=== PATIENT | female | born 1950 | race Caucasian/White ===

== ENCOUNTER 2020-12-07 10:22 | Outpatient (REF) | payer MEDICARE, SELFPAY ==
[2020-12-07 11:46] LABS: MANUAL DIFF FLAG NO
[2020-12-07 12:00] LABS: Basophils Absolute Auto 0.1 X10*3/uL (0.0-0.2); Basophils Percent Auto 1.4 % (0-2); Eosinophils Absolute Auto 0.2 X10*3/uL (0.0-0.4); Eosinophils Percent Auto 3.2 % (0-4); Hematocrit 44.3 % (37-47); Hemoglobin 14.1 g/dl (12.0-16.0); Imm Gran Abs Auto 0.02 X10*3/uL (0.00-0.03); Imm Gran Pct Auto 0.3 % (0.0-0.4); Lymphocytes Absolute Auto 1.9 X10*3/uL (1.2-4.9); Lymphocytes Percent Auto 32.1 % (20-40); Mean Corpuscular HGB Conc 31.8 g/dl (31.0-35.0); Mean Corpuscular Hemoglobin 29.9 pg (27.0-33.0); Mean Corpuscular Volume 93.9 fL (80-98); Monocytes Absolute Auto 0.4 X10*3/uL (0.1-1.2); Monocytes Percent Auto 6.6 % (2-11); Neutrophils Absolute Auto 3.3 X10*3/uL (2.0-8.3); Neutrophils Percent Auto 56.4 % (45-73); Platelet Count 333 X10*3/uL (160-400); Red Blood Count 4.72 X10*6/uL (4.20-5.50); Red Cell Distribution Width 13.3 % (11.0-16.0); White Blood Count 5.9 X10*3/uL (4.8-10.8)
[2020-12-07 12:50] LABS: Folate > 20.0 ng/mL (> or = 4.0); Vitamin B12 278 pg/mL (200-900)
[2020-12-07 13:53] LABS: Alanine Aminotransferase 15 U/L (0-31); Anion Gap 14 (12-20); Aspartate Amino Transferase 17 U/L (5-31); Blood Urea Nitrogen 14 mg/dL (9-16); Calcium 9.6 mg/dL (8.4-10.2); Carbon Dioxide 28 mmol/L (22-29); Chloride 103 mmol/L (96-108); Cholesterol 256 mg/dL; Estimated Glomerular Filt Rate > 60; Glucose Fasting 97 mg/dL (60-99); HDL Cholesterol 70 mg/dL; LDL Cholesterol Calculated 136 mg/dl; Potassium 4.3 mmol/L (3.3-5.1); Sodium 141 mmol/L (135-145); TSH reflex Free T4 2.24 uIU/mL (0.32-4.0); Triglycerides 250 mg/dL; Vitamin D 25-OH Total 37.7 ng/mL (>30)
== END 2020-12-07 10:23 | disposition home or self-care (01) ==
LOC: HO.HMGCLDS 10:22
PROVIDERS: PCP Internal Medicine; Visit Provider Internal Medicine
DX: Z00.01 Encounter for general adult medical examination with abnormal findings (principal); M85.852 Other specified disorders of bone density and structure, left thigh; E78.2 Mixed hyperlipidemia; I10 Essential (primary) hypertension; M19.91 Primary osteoarthritis, unspecified site; Z12.11 Encounter for screening for malignant neoplasm of colon; Z78.0 Asymptomatic menopausal state
CPT/HCPCS: 36415; 80048; 80061; 82306; 82607; 82746; 84443; 84450; 84460; 85025

== ENCOUNTER 2020-12-24 12:01 | Outpatient (REF) | payer MEDICARE, SELFPAY | END 2020-12-24 12:02 | disposition home or self-care (01) | LOC: HO.HMGCLDS 12:01 | PROVIDERS: PCP Internal Medicine; Visit Provider Internal Medicine | DX: Z20.822 Contact with and (suspected) exposure to COVID-19 (principal) | CPT/HCPCS: C9803; U0003; U0005 ==

== ENCOUNTER → 2021-01-02 08:05 | Outpatient (BNVA) | payer MEDICARE, SELFPAY | PROVIDERS: PCP Internal Medicine; Visit Provider Physician Assistant | DX: Z12.11 Encounter for screening for malignant neoplasm of colon (principal) | CPT/HCPCS: Q3014 ==

== ENCOUNTER 2021-02-19 08:48 | Day surgery (SDC) | payer MEDICARE, SELFPAY ==
[2021-02-12 13:17] VITALS: BMI 28.0
--- NOTE | 2021-02-14 12:59 | HO.ANESPROP2 ---
Documented by User: Catherine Mena 02/14/21 13:00 HPI - Anesthesia Eval Consult details Narrative: 70yo F for Colonoscopy PMFSH Active Problems Active Problems: All Active Problems (Updated 02/12/21 @ 13:47 by Blossom Sifuentes) Encounter for screening colonoscopy (Acute) Mild obstructive sleep apnea (Acute) Osteopenia of left femoral neck (Acute) Mixed dyslipidemia (Acute) Primary localized osteoarthrosis of multiple sites (Acute) Fibromyalgia (Acute) Melanoma in situ of right lower extremity (Acute) Past Medical History Medical History (Updated 02/19/21 @ 09:28 by Carolann Stuart) Arthritis Fibromyalgia Low back pain Melanoma in situ of right lower extremity Mild obstructive sleep apnea Mixed dyslipidemia Osteopenia of left femoral neck Polymyalgia rheumatica Primary localized osteoarthrosis of multiple sites Family History Family History Father Acute leukemia SLE (systemic lupus erythematosus) Mother Colon cancer Surgical History Surgical History H/O hysterectomy with unilateral oophorectomy H/O melanoma excision History of cataract surgery History of tonsillectomy Social History Social History Household Members Other:: alone Alcohol intake: current Alcohol intake frequency: 0-2 drinks per day Alcohol type: wine Use of substances other than those prescribed or required for medical reasons: No Are you DNR?: No Advance Directives: No Advance Directives Information Provided: No Advance Directives on File: No 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 Allergies Allergy/AdvReac Type Severity Reaction Status Date / Time amoxicillin [AMOXICILLIN] Allergy Severe HIVES Verified 02/12/21 13:13 Home Medications Medication Instructions Recorded Confirmed Last Taken Type caeaqir-uvspscjbi-zhbe 333 mg-133 2 tab PO DAILY tab 12/07/20 02/12/21 Unknown History mg-8.3 mg tablet multivitamin 1 tab PO DAILY 12/07/20 02/12/21 Unknown History vitamin A palmitate 15,000 unit 15,000 unit PO DAILY 12/07/20 02/12/21 Unknown History tablet cholecalciferol (vitamin D3) 25 mcg PO DAILY 02/12/21 02/12/21 Unknown History [Vitamin D3] vitamin B complex 1 tab PO DAILY 02/12/21 02/12/21 Unknown History Exam Exam Date and Time: February 14, 2021 1259 Height,Weight and Vital Signs: Height 5 ft 7 in Weight 81.193 kg Assessment and Plan Assessment Anesthesia Assessment: Chart Reviewed Documented by User: Carolann Stuart 02/19/21 09:33 [facility] Past Medical History Medical History (Updated 02/19/21 @ 09:28 by Carolann Stuart) Arthritis Fibromyalgia Low back pain Melanoma in situ of right lower extremity Mild obstructive sleep apnea Mixed dyslipidemia Osteopenia of left femoral neck Polymyalgia rheumatica Primary localized osteoarthrosis of multiple sites Family History Family History Father Acute leukemia SLE (systemic lupus erythematosus) Mother Colon cancer Family history of problems with anesthesia: No Surgical History Surgical History H/O hysterectomy with unilateral oophorectomy H/O melanoma excision History of cataract surgery History of tonsillectomy History of Problems with Anesthesia: No Social History Social History Household Members Other:: alone Alcohol intake: current Alcohol intake frequency: 0-2 drinks per day Alcohol type: wine Use of substances other than those prescribed or required for medical reasons: No Are you DNR?: No Advance Directives: No Advance Directives Information Provided: No Advance Directives on File: No 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 Allergies Allergy/AdvReac Type Severity Reaction Status Date / Time amoxicillin [AMOXICILLIN] Allergy Severe HIVES Verified 02/12/21 13:13 Home Medications Medication Instructions Recorded Confirmed Last Taken Type fzxmxol-ehkrttyux-ixan 333 mg-133 2 tab PO DAILY tab 12/07/20 02/12/21 Unknown History mg-8.3 mg tablet multivitamin 1 tab PO DAILY 12/07/20 02/12/21 Unknown History vitamin A palmitate 15,000 unit 15,000 unit PO DAILY 12/07/20 02/12/21 Unknown History tablet cholecalciferol (vitamin D3) 25 mcg PO DAILY 02/12/21 02/12/21 Unknown History [Vitamin D3] vitamin B complex 1 tab PO DAILY 02/12/21 02/12/21 Unknown History Exam Height,Weight and Vital Signs: Vital Signs Temp Pulse Resp BP Pulse Ox 02/19/21 08:59 98.4 F 71 16 139/75 96 Airway Mallampati Class: II TM Dist: >3cm Neck ROM: Full Loose/Missing/Broken Teeth: No (Caps intact) Heart: RRR Lungs: CTAB Assessment and Plan Assessment Anesthesia Assessment: Anesthesia Plan Discussed and Chart Reviewed Final Anesthetic Review NPO: Yes ASA Class: III Final Preanesthetic Review: No Changes in Pt Med Stat, Meds/Allgs Chart Reviewed, Consent Obtained/Reviewed and Anes Risks/Benef Reviewed Patient Risk: Intermediate Procedure Risk: Low Assessment/Block/Sedation in SS: Assess/Block/Sedation-SS Anesthetic Plan Anesthetic Plan: MAC: Disposition: Standard PACU
[2021-02-19 08:59] VITALS: BP 139/75; PULSE 71; RESP 16; TEMP 36.9; O2SAT 96
--- NOTE | 2021-02-19 09:02 | W.PM.OPN ---
Operative Note Operative Note Date of Service: 02/19/21 Narrative: Pre-op diagnosis: Colon cancer screening family history of colon cancer (mom in her 90's) Post-op diagnosis: other (Colon polyp, diverticulosis, hemorrhoids) Procedure: COLONOSCOPY TILL CECUM WITH SNARE POLYPECTOMY Consent: Indications for the procedure and potential complications of bleeding, perforation, reaction to medications and missed diagnosis were discussed with the patient and informed consent was obtained. Instrument: Olympus PCF H 190 L variable stiffness pediatric colonoscope Monitoring: Vital signs and clinical assessment, intermittent blood pressure monitoring, continuous EKG monitoring, Pulse oximetry and Carbon Dioxide monitoring were done throughout the procedure. Colon withdrawl time was 16 minutes. Procedure: The patient was placed in the left lateral decubitis position and pre-procedure medications were administered. After a digital rectal examination of the ano-rectum, the video colonoscope was inserted into the rectum and advanced through the colon to the cecum. The colonoscope was slowly withdrawn in a retrograde panoramic fashion and the colon mucosa was carefully examined including a retroflexed view of the rectum. Findings and interventions are described below. Procedure Difficulty: There was a sharp turn at 30-35 cm with narrowing (due to severe diverticulosis) which was navigated with some difficulty - no maneuvers were required Findings: Terminal Ileum: Not evaluated Cecum: Normal Ascending Colon: Normal Transverse Colon: Normal Descending Colon: Moderate diverticulosis Sigmoid Colon: Severe diverticulosis with luminal narrowing Rectum: A 7-8 mm sessile polyp removed with a cold snare Ano-rectum: Moderate internal hemorrhoids Colon preparation: Good after some irrigation Impression and Post Procedure Diagnosis: Colonoscopy Findings: One small polyp removed Moderate to severe diverticulosis seen in the left colon Moderate hemorrhoids on retroflexed exam. Plan: Await pathology results Patient has an appointment on 03/06/21 in the GI Clinic with JENARO Rodriguez. Repeat Colonoscopy interval based on path results - in 5 years if polyps are adenomatous and 10 years if polyps are hyperplastic. Above findings were reviewed with the patient and colon polyps and diverticulosis handouts were given in the discharge area Surgeon: Antonio King MD Anesthesia: MAC (Yajaira Cunha CRNA) Was an Crystal Machining Coordinator used for this Procedure?: Yes Crystal Machining Coordinator: Alberto Burrell Estimated blood loss (mL): 0 Pathology: other (A. Rectal polyp x 1) Condition: stable Disposition: PACU
--- NOTE | 2021-02-19 09:02 | MHC.SHP ---
Pre-Procedural Eval Section A The patient is an INPATIENT: No The History & Physical has been completed within 30 days and I have reviewed it.: No Section B Chief Complaint: Screening Details of Present Illness: Colon cancer, family history of colon cancer (mom in her 90's) Relevant Family History (Specify if Yes): Yes Relevant Social History: None Present Medications: see Short Stay Collaborative assessment Medical History: Significant History (Fibromyalgia Melanoma in situ of right lower extremity Mild obstructive sleep apnea Mixed dyslipidemia Osteopenia of left femoral neck Primary localized osteoarthrosis of multiple sites) History of Previous Operations: Relevant previous surgery/procedure and date(s) (H/O hysterectomy with unilateral oophorectomy H/O melanoma excision History of cataract surgery History of tonsillectomy) Allergies: Allergies Allergy/AdvReac Type Severity Reaction Status Date / Time amoxicillin [AMOXICILLIN] Allergy Severe HIVES Verified 02/12/21 13:13 Review of Systems Sugical H&P ROS: Negative: Constitution, Cardiovascular, Respiratory and Gastrointestinal Exam Surgical H&P Exam: Normal: Heart, Normal: Lungs, Normal: Extremities and Normal: Abdomen Plan Diagnosis/Plan: Unchanged I have reviewed the history and physical and performed a pertinent physical examination on my patient. No changes have occurred unless specified.
[2021-02-19] MEDS: Lactated Ringers 1,000 ML 100 ML IVCONT (09:21)
--- NOTE | 2021-02-19 09:41 | PC.NURSE ---
Patient arrived to [facility] and stated she is a DNR/DNI. Paperwork not found scanned into PCI or Expanse. Anesthesia and Dr. King aware. Order put in for DNR/DNI status. Patients HCP information obtained- Rosa Hall (friend), phone [phone].
[2021-02-19 10:08] VITALS: BP 129/70; PULSE 62; RESP 16; TEMP 36.1; O2SAT 99
[2021-02-19 10:22] VITALS: BP 147/77; PULSE 64; RESP 16; TEMP 36.1; O2SAT 96
== END 2021-02-19 10:44 | disposition home or self-care (01) ==
PROVIDERS: PCP Internal Medicine; Visit Provider Internal Medicine Gastroenterology
PROC: 0DJD8ZZ Inspection of Lower Intestinal Tract, Via Natural or Artificial Opening Endoscopic (ICD-10-PCS; CPT 45378; principal; 2021-02-19 10:10)
DX: Z12.11 Encounter for screening for malignant neoplasm of colon (principal); Z80.0 Family history of malignant neoplasm of digestive organs; K62.1 Rectal polyp; K57.30 Diverticulosis of large intestine without perforation or abscess without bleeding; K64.8 Other hemorrhoids; M85.88 Other specified disorders of bone density and structure, other site; M89.49 Other hypertrophic osteoarthropathy, multiple sites; G47.33 Obstructive sleep apnea (adult) (pediatric); M35.3 Polymyalgia rheumatica; Z85.820 Personal history of malignant melanoma of skin; Z79.899 Other long term (current) drug therapy; Z88.0 Allergy status to penicillin
CPT/HCPCS: 45385; 88305

== ENCOUNTER → 2021-03-06 13:06 | Outpatient (BNVA) | payer MEDICARE, SELFPAY | PROVIDERS: Visit Provider Physician Assistant | DX: Z13.89 Encounter for screening for other disorder (principal) | CPT/HCPCS: Q3014 ==

== ENCOUNTER 2021-05-10 10:58 | Outpatient (REF) | payer MEDICARE, SELFPAY ==
--- NOTE | ~2021-05-10 | MM_ITS ---
EXAMINATION: MM SCREENING DIGITAL BREAST TOMOSYNTHESIS, BILATERAL CLINICAL INFORMATION: Screening. Asymptomatic. The lifetime risk of breast cancer based on the Tyrer-Cuzick Model is 4%. COMPARISON: Mammography: 03/14/2020, 03/09/2019, 02/12/2018 TECHNIQUE: Digital breast tomosynthesis is performed in both the craniocaudal and mediolateral oblique views along with computer-aided detection (CAD). Synthesized 2D images are generated from the tomosynthesis. FINDINGS: There are scattered areas of fibroglandular density (ACR BI-RADS breast composition Category b). Parenchymal pattern is similar to prior studies. There is no interval mass or developing density or architectural abnormality. Oval fibroglandular asymmetry anterior 12:00 left breast is stable from prior studies. Again, there are scattered bilateral dermal lesions overlying the breasts. There is a biopsy clip marker again seen mid upper outer left breast. 3-4 benign coarse calcifications are just superior lateral to the clip marker. There are no significant changes. MM/MM tomosynthesis screening BI IMPRESSION: No significant changes from prior studies. ASSESSMENT: BI-RADS 2: Benign RECOMMENDATION: Routine annual mammography screening. This patient's information was entered into a reminder system with a target due date for their next mammogram.
== END 2021-05-10 10:59 | disposition home or self-care (01) ==
LOC: HO.MAMMO 10:58
PROVIDERS: Visit Provider Internal Medicine
DX: Z12.31 Encounter for screening mammogram for malignant neoplasm of breast (principal)
CPT/HCPCS: 77063; 77067

== ENCOUNTER 2021-08-29 08:23 | Outpatient (REF) | payer MEDICARE, SELFPAY ==
--- NOTE | ~2021-08-29 | US_ITS ---
EXAMINATION: US ABDOMEN COMPLETE CLINICAL INFORMATION: Abdominal distention (gaseous). COMPARISON: None TECHNIQUE: Real-time imaging of the abdominal viscera. FINDINGS: PANCREAS: Not well visualized due to bowel gas ABDOMINAL AORTA: The proximal, mid, and distal segments are normal in caliber. INFERIOR VENA CAVA: Visualized portions are normal. LIVER: Normal. The liver is normal in size. The liver contour is normal. Parenchymal echogenicity is normal. No focal hepatic lesion. There is no intrahepatic biliary duct dilatation seen. GALLBLADDER: The gallbladder is normal in size. There are gallstones. Gallbladder wall is normal. There is no pericholecystic fluid. COMMON BILE DUCT: Normal in caliber measuring 0.6 cm in diameter. RIGHT KIDNEY: Normal. No hydronephrosis. No renal calculi or focal parenchymal lesions. The kidney measures 10.4 cm in maximum dimension. LEFT KIDNEY: There are left renal peripelvic cysts, largest measuring 1.5 x 0.9 x 1.4 cm. No hydronephrosis or renal calculi. The kidney measures 11.2 cm in maximum dimension. SPLEEN: Normal. The spleen measures 7.8 cm in maximum dimension. FREE FLUID: None. US/US abdomen complete IMPRESSION: Gallstones. Left renal cyst. Limited visualization of the pancreas.
== END 2021-08-29 08:24 | disposition home or self-care (01) ==
LOC: HO.US 08:23
PROVIDERS: PCP Internal Medicine; Visit Provider Internal Medicine
DX: R10.11 Right upper quadrant pain (principal); R14.0 Abdominal distension (gaseous)
CPT/HCPCS: 76700

== ENCOUNTER → 2021-10-11 08:50 | Outpatient (BNVA) | payer MEDICARE, SELFPAY | PROVIDERS: PCP Internal Medicine; Referring Provider Internal Medicine; Visit Provider Surgery | DX: K80.50 Calculus of bile duct without cholangitis or cholecystitis without obstruction (principal); K80.20 Calculus of gallbladder without cholecystitis without obstruction | CPT/HCPCS: 99202 ==

== ENCOUNTER 2021-11-04 07:16 | Day surgery (SDC) | payer MEDICARE, SELFPAY ==
[2021-10-28 12:31] VITALS: BMI 28.0
--- NOTE | 2021-11-01 10:41 | HO.ANESPROP2 ---
Documented by User: Catherine Mena NP 11/01/21 10:42 HPI - Anesthesia Eval Consult details Narrative: 71yo F for ?Cholecystectomy Laparoscopic, Poss Open PMFSH Active Problems Active Problems: All Active Problems (Updated 10/28/21 @ 12:26 by Hermila Gomez RN) Encounter for screening colonoscopy (Acute) Diverticulosis of colon (Acute) Hyperplastic colon polyp (Acute) Biliary colic (Acute) Cholelithiasis (Acute) Mild obstructive sleep apnea (Acute) Osteopenia of left femoral neck (Acute) Mixed dyslipidemia (Acute) Primary localized osteoarthrosis of multiple sites (Acute) Fibromyalgia (Acute) Melanoma in situ of right lower extremity (Acute) Past Medical History Medical History Arthritis Fibromyalgia Low back pain Melanoma in situ of right lower extremity Mixed dyslipidemia Osteopenia of left femoral neck Polymyalgia rheumatica Primary localized osteoarthrosis of multiple sites Family History Family History Father Acute leukemia SLE (systemic lupus erythematosus) Lymphoma Mother Colon cancer Maternal Aunt Breast cancer Family history of problems with anesthesia: No Surgical History Surgical History H/O colonoscopy H/O hysterectomy with unilateral oophorectomy H/O melanoma excision History of cataract surgery History of tonsillectomy History of Problems with Anesthesia: No Social History Social History Household Members Other:: alone Are you a primary healthcare corporate account director to a significant other at home: No Do you presently have visiting nurse or other home services: No Alcohol intake: current Alcohol intake frequency: 0-2 drinks per day Alcohol type: wine Patient Tobacco Use Status: Never used Tobacco Second Hand Smoke Exposure: No Use of substances other than those prescribed or required for medical reasons: No Have you been hit, kicked, punched, or otherwise hurt by someone within the past year? 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 Allergy/AdvReac Type Severity Reaction Status Date / Time amoxicillin [AMOXICILLIN] Allergy Severe HIVES Verified 10/28/21 12:46 Home Medications Medication Instructions Recorded Confirmed Last Taken Type opxerho-tnfrifjlk-vxyu 333 mg-133 2 tab PO DAILY tab 12/07/20 10/28/21 Unknown History mg-8.3 mg tablet multivitamin 1 tab PO DAILY 12/07/20 10/28/21 Unknown History vitamin A palmitate 15,000 unit 15,000 unit PO DAILY 12/07/20 10/28/21 Unknown History tablet cholecalciferol (vitamin D3) 25 25 mcg PO DAILY 02/12/21 10/28/21 Unknown History mcg (1,000 unit) capsule (Vitamin D3) vitamin B complex 1 tab PO DAILY 02/12/21 10/28/21 Unknown History Exam Exam Date and Time: November 01, 2021 1041 Height,Weight and Vital Signs: Height 5 ft 7 in Weight 81.193 kg Assessment and Plan Assessment Anesthesia Assessment: Chart Reviewed Final Anesthetic Review Family History of Problems with Anesthesia: No History of Problems with Anesthesia: No Documented by User: Vonnie Mansfield MD 11/04/21 09:05 [facility] Past Medical History Medical History Arthritis Fibromyalgia Low back pain Melanoma in situ of right lower extremity Mixed dyslipidemia Osteopenia of left femoral neck Polymyalgia rheumatica Primary localized osteoarthrosis of multiple sites Family History Family History Father Acute leukemia SLE (systemic lupus erythematosus) Lymphoma Mother Colon cancer Maternal Aunt Breast cancer Surgical History Surgical History H/O colonoscopy H/O hysterectomy with unilateral oophorectomy H/O melanoma excision History of cataract surgery History of tonsillectomy Social History Social History Household Members Other:: alone Are you a primary healthcare corporate account director to a significant other at home: No Do you presently have visiting nurse or other home services: No Alcohol intake: current Alcohol intake frequency: 0-2 drinks per day Alcohol type: wine Patient Tobacco Use Status: Never used Tobacco Second Hand Smoke Exposure: No Use of substances other than those prescribed or required for medical reasons: No Have you been hit, kicked, punched, or otherwise hurt by someone within the past year? 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 Allergy/AdvReac Type Severity Reaction Status Date / Time amoxicillin [AMOXICILLIN] Allergy Severe HIVES Verified 10/28/21 12:46 Home Medications Medication Instructions Recorded Confirmed Last Taken Type qcjlzuv-esdzfqqzx-njqa 333 mg-133 2 tab PO DAILY tab 12/07/20 10/28/21 Unknown History mg-8.3 mg tablet multivitamin 1 tab PO DAILY 12/07/20 10/28/21 Unknown History vitamin A palmitate 15,000 unit 15,000 unit PO DAILY 12/07/20 10/28/21 Unknown History tablet cholecalciferol (vitamin D3) 25 25 mcg PO DAILY 02/12/21 10/28/21 Unknown History mcg (1,000 unit) capsule (Vitamin D3) vitamin B complex 1 tab PO DAILY 02/12/21 10/28/21 Unknown History Exam Airway Mallampati Class: III TM Dist: >3cm Loose/Missing/Broken Teeth: No Heart: RRR Lungs: CTA Assessment and Plan Assessment Anesthesia Assessment: Anesthesia Plan Discussed Final Anesthetic Review NPO: Yes ASA Class: II Final Preanesthetic Review: Meds/Allgs Chart Reviewed, Consent Obtained/Reviewed and Anes Risks/Benef Reviewed Patient Risk: Low Procedure Risk: Intermediate Anesthetic Plan Anesthetic Plan: GA Disposition: Standard PACU
[2021-11-04] VITALS (13 sets, daily range): BP systolic 146–178; BP diastolic 70–87; PULSE 60–68; RESP 16–22; TEMP 36.3–36.7; O2SAT 93–98
[2021-11-04] MEDS: Acetaminophen 325 MG TABLET 650 MG PO (08:43)
--- NOTE | 2021-11-04 08:50 | MHC.SHP ---
Pre-Procedural Eval Section A Date of Service: 11/04/21 The patient is an INPATIENT: No Changes since office visit: Yes Patient answered all questions; No Cold of Flu in the past 2 weeks, No New Medical Problems and No Changes in Medication The History & Physical has been completed within 30 days and I have reviewed it.: Yes Section B Chief Complaint: Cholelithiasis Allergies: Allergies Allergy/AdvReac Type Severity Reaction Status Date / Time amoxicillin [AMOXICILLIN] Allergy Severe HIVES Verified 10/28/21 12:46 Plan Diagnosis/Plan: Unchanged I have reviewed the history and physical and performed a pertinent physical examination on my patient. No changes have occurred unless specified.
[2021-11-04] MEDS: Lactated Ringers 1,000 ML 100 ML IVCONT (08:57)
--- NOTE | 2021-11-04 10:26 | P.OP_ITS ---
Operative Note Operative Note Date of Service: 11/04/21 Narrative: Preoperative diagnosis: Biliary colic Postoperative diagnosis: Same Procedure: Laparoscopic cholecystectomy Surgeon: Pawel Rivero MD Title Clerk Automobile: MIGUELINA Elliott Anesthesia: General endotracheal Indications for procedure: 71-year-old female patient presenting with complaints of abdominal pain in the right quadrant found to have multiple gallstones the gallbladder. No wall thickening or pericholecystic fluid was identified. She presents today for laparoscopic or possible open cholecystectomy. Operative findings: evidence of chronic cholecystitis with adhesions to the undersurface of the gallbladder. Multiple large gallstones within the gallbladder. Specimen: gallbladder Estimated blood loss: 5 mL Complications: none Procedure details: Patient was brought to the OR and placed in a supine position. After administering general anesthesia the patient's abdomen was prepped with ChloraPrep and draped in a sterile fashion. Local anesthesia consisting of 0.5% Sensorcaine without epinephrine was infiltrated in a periumbilical region. A 5 mm incision was made above the umbilicus in a transverse fashion. The Veress needle was then inserted while elevating abdominal cavity with towel clips. After positive drop test the abdomen was insufflated to a pressure of 15 mm of mercury. The Veress needle was then removed and a 5 mm trocar inserted. The camera was inserted in the abdomen explored. A 12 mm trocar was then placed in the epigastrium and two 5 mm trocars placed in the right upper quadrant. The patient was placed in reverse Trendelenburg positioning and rotated to the left. The gallbladder was grasped with the fundus and retracted cephalad. Multiple adhesions to the undersurface of the gallbladder were dissected free using electrocautery and the Dolphin dissector.. The infundibulum was then grasped and retracted away from the liver bed. The Dolphin dissector was then used to dissect the peritoneum off the infundibulum to reveal the junction with the cystic duct. Cystic artery was noted slightly medial and posterior to the cystic duct with a large overlying lymph node. After obtaining a critical view the cystic duct was doubly clipped and divided. The cystic artery was then doubly clipped and divided. The gallbladder was then dissected off the liver bed using electrocautery with an L hook. Hemostasis was assured all times using the electrocautery. When the gallbladder is completely dissected off the liver bed was placed in an Endo-Catch bag and brought out through the epigastric incision. The gallbladder was sent to pathology for f urther examination. The abdomen was then re-examined. The liver bed was irrigated and suctioned dry. No bleeding or bile leak could be identified. CO2 was then evacuated and all trocars removed. Fascia was closed at the epigastric incision using a [id number] 0 Polysorb suture. Skin was closed in all incisions using a subcuticular 4 0 Polysorb suture. Sterile dressings consisting of Steri-Strips, 2 x 2 gauze, and Tegaderm were then applied. The patient tolerated the procedure well. Sponge instrument and needle counts reported as correct. The patient was transferred to PACU in stable condition.
[2021-11-04] MEDS: fentaNYL citrate/PF 100 MCG/2 ML VIAL 50 MCG IVPUSH ×3 (10:53→11:10)
[2021-11-04] MEDS: oxyCODONE HCl Immed Release 5 MG TABLET PO (10:53)
== END 2021-11-04 12:49 | disposition home or self-care (01) ==
PROVIDERS: PCP Internal Medicine; Visit Provider Surgery
PROC: 0FT44ZZ Resection of Gallbladder, Percutaneous Endoscopic Approach (ICD-10-PCS; CPT 47562; principal; 2021-11-04 09:10)
DX: K80.10 Calculus of gallbladder with chronic cholecystitis without obstruction (principal); K82.8 Other specified diseases of gallbladder; E78.2 Mixed hyperlipidemia; M35.3 Polymyalgia rheumatica; M79.7 Fibromyalgia; M85.852 Other specified disorders of bone density and structure, left thigh; G47.33 Obstructive sleep apnea (adult) (pediatric); Z86.006 Personal history of melanoma in-situ; Z79.899 Other long term (current) drug therapy; Z88.0 Allergy status to penicillin
CPT/HCPCS: 47562; 88304; J1100; J1885; J2250; J2405; J3010

== ENCOUNTER 2021-11-12 10:44 | Outpatient (REF) | payer MEDICARE, SELFPAY ==
--- NOTE | ~2021-11-12 | XR_ITS ---
EXAMINATION: XR CHEST CLINICAL INFORMATION: Shortness of breath COMPARISON: None TECHNIQUE: 2 views of the chest were obtained. FINDINGS: The cardiac and mediastinal contours are normal. There is subsegmental atelectasis at both lung bases. The lungs are otherwise clear. There is no pleural effusion or pneumothorax. There are degenerative changes of the spine. XR/XR chest 2V IMPRESSION: Subsegmental atelectasis at both lung bases.
== END 2021-11-12 10:45 | disposition home or self-care (01) ==
LOC: HO.XRAY 10:44
PROVIDERS: PCP Internal Medicine; Visit Provider Surgery
DX: K80.50 Calculus of bile duct without cholangitis or cholecystitis without obstruction (principal); R06.02 Shortness of breath
CPT/HCPCS: 71046; 99212

== ENCOUNTER 2021-12-09 10:18 | Outpatient (REF) | payer MEDICARE, SELFPAY ==
[2021-12-09 12:11] LABS: Alanine Aminotransferase 20 U/L (0-31); Anion Gap 14 (12-20); Aspartate Amino Transferase 15 U/L (5-31); Blood Urea Nitrogen 13 mg/dL (9-16); Calcium 9.9 mg/dL (8.4-10.2); Carbon Dioxide 28 mmol/L (22-29); Chloride 102 mmol/L (96-108); Cholesterol 248 mg/dL; Estimated Glomerular Filt Rate > 60; Glucose Fasting 99 mg/dL (60-99); HDL Cholesterol 80 mg/dL; LDL Cholesterol Calculated 143 mg/dl; Potassium 4.7 mmol/L (3.3-5.1); Sodium 139 mmol/L (135-145); Triglycerides 128 mg/dL
[2021-12-09 13:16] LABS: Folate > 20.0 ng/mL (> or = 4.0); Vitamin B12 339 pg/mL (200-900)
== END 2021-12-09 10:19 | disposition home or self-care (01) ==
LOC: HO.HMGCLDS 10:18
PROVIDERS: Visit Provider Internal Medicine
DX: Z00.01 Encounter for general adult medical examination with abnormal findings (principal); E78.2 Mixed hyperlipidemia; M85.852 Other specified disorders of bone density and structure, left thigh; N95.9 Unspecified menopausal and perimenopausal disorder
CPT/HCPCS: 36415; 80048; 80061; 82306; 82607; 82746; 84450; 84460

== ENCOUNTER 2022-05-13 12:21 | Outpatient (REF) | payer MEDICARE, SELFPAY ==
--- NOTE | ~2022-05-13 | MM_ITS ---
EXAMINATION: MM SCREENING DIGITAL BREAST TOMOSYNTHESIS, BILATERAL CLINICAL INFORMATION: Screening. Asymptomatic. The lifetime risk of breast cancer based on the Tyrer-Cuzick Model is 2.9%. COMPARISON: Mammography: May 10, 2021 and studies dating back to November 10, 2013 TECHNIQUE: Digital breast tomosynthesis is performed in both the craniocaudal and mediolateral oblique views along with computer-aided detection (CAD). Synthesized 2D images are generated from the tomosynthesis. FINDINGS: There are scattered areas of fibroglandular density (ACR BI-RADS breast composition Category b). There are no significant masses, abnormal calcifications, or other abnormalities. MM/MM tomosynthesis screening BI IMPRESSION: No significant changes from prior exam. ASSESSMENT: BI-RADS 1: Negative RECOMMENDATION: Routine annual mammography screening. This patient's information was entered into a reminder system with a target due date for their next mammogram.
--- NOTE | ~2022-05-13 | MM_ITS ---
EXAMINATION: BONE DENSITOMETRY CLINICAL INDICATION: Osteopenia. COMPARISON: Previous BD dated 09/27/2019 and baseline BD dated 06/21/2010. TECHNIQUE: Using a [employer] DXA System (software version: 13.1) manufactured by [employer], dual-energy x-ray absorptiometry was performed of the lumbar spine and left hip. The images are of good technical quality. Summary results are attached. FINDINGS: AP SPINE L1-L4: Current: BMD 1.107 g/cm2, Z-score 0.6, T-score -0.6, normal, 4.5% decrease from previous, 4.7% decrease from baseline (<5% change is not significant). Prior: BMD 1.159 g/cm2. Baseline: BMD 1.162 g/cm2. LEFT FEMUR, NECK: Current: BMD 0.898 g/cm2, Z-score 0.5, T-score -1.0, normal. Prior: BMD 0.845 g/cm2. Baseline: BMD 0.971 g/cm2. LEFT FEMUR, TOTAL: Current: BMD 0.960 g/cm2, Z-score 0.9, T-score -0.4, normal, 4.3% increase from previous, 6.0% decrease from baseline (<5% change is not significant). Prior: BMD 0.920 g/cm2. Baseline: BMD 1.021 g/cm2. IDENTIFIED RISK FACTORS: Menopause, left oophorectomy, osteoporosis, hysterectomy, family history (parent hip fracture). HISTORY OF FRACTURE: None listed. MEDICATIONS: Calcium, vitamin D. MM/XR DEXA axial skeleton IMPRESSION: 1. DIAGNOSIS: Normal bone density based on the lowest T-score value of -1.0 in the femoral neck applying World Health Organization criteria. 2. 10-YEAR FRACTURE RISK PREDICTION, FRAX: Major osteoporotic fracture (clinical spine, forearm, hip or shoulder) 14.2%. Hip fracture 4.7%. 3. Treatment Recommendations: NOF guidelines recommend consideration for treatment in postmenopausal women and men age 50 and older presenting with the following: -A hip or vertebral (clinical or morphometric) fracture. -T-score less than or equal to -2.5 at the femoral neck or spine after appropriate evaluation to exclude secondary causes. -Low bone mass at the hip or spine and a 10-year fracture probability by FRAX of greater than or equal to 3% for hip fracture or greater than or equal to 20% for major osteoporotic fracture based on the [place] adapted WHO algorithm. 4. Other Recommendations: All treatment decisions require clinical judgment and consideration of individual patient factors, including patient preferences, comorbidities, previous drug use, risk factors not captured in the FRAX model (e.g. frailty, falls, vitamin D deficiency, increased bone turnover, interval significant decline in bone density) and possible under or overestimation of fracture risk by FRAX. FUTURE SCAN RECOMMENDATION: People with diagnosed cases of osteoporosis or at high risk for fracture should have regular bone mineral density tests. For patients eligible for Medicare, routine testing is allowed once every 2 years. The testing frequency can be increased to one year for patients who have rapidly progressing disease, those who are receiving or discontinuing medical therapy to restore bone mass, or have additional risk factors.
== END 2022-05-13 12:22 | disposition home or self-care (01) ==
LOC: HO.MAMMO 12:21
PROVIDERS: Visit Provider Internal Medicine
DX: Z12.31 Encounter for screening mammogram for malignant neoplasm of breast (principal); Z13.820 Encounter for screening for osteoporosis; M85.852 Other specified disorders of bone density and structure, left thigh; N95.9 Unspecified menopausal and perimenopausal disorder; Z78.0 Asymptomatic menopausal state
CPT/HCPCS: 77063; 77067; 77080

== ENCOUNTER 2022-09-05 09:38 | Outpatient (REF) | payer MEDICARE, SELFPAY ==
[2022-09-05 11:30] LABS: MANUAL DIFF FLAG NO
[2022-09-05 11:49] LABS: Basophils Absolute Auto 0.1 X10*3/uL (0.0-0.2); Eosinophils Absolute Auto 0.2 X10*3/uL (0.0-0.4); Eosinophils Percent Auto 2.9 % (0-4); Hematocrit 44.2 % (37.0-47.0); INTERNATIONAL NORM RATIO 0.9 (0.9-1.1); Imm Gran Abs Auto 0.02 X10*3/uL (0.00-0.03); Imm Gran Pct Auto 0.3 % (0.0-0.4); Lymphocytes Absolute Auto 1.6 X10*3/uL (1.2-4.9); Lymphocytes Percent Auto 21.3 % (20-40); Mean Corpuscular HGB Conc 31.7 g/dl (31.0-35.0); Mean Corpuscular Hemoglobin 29.9 pg (27.0-33.0); Mean Corpuscular Volume 94.4 fL (80.0-98.0); Mean Platelet Volume 11.7 fL (9.4-12.3); Monocytes Absolute Auto 0.7 X10*3/uL (0.1-1.2); Monocytes Percent Auto 8.8 % (2-11); Neutrophils Percent Auto 65.7 % (45-73); Platelet Count 382 X10*3/uL (160-400); Prothrombin Time 10.7 SEC (10.0-13.1); Red Blood Count 4.68 X10*6/uL (4.20-5.50); Red Cell Distribution Width 13.3 % (11.0-16.0); White Blood Count 7.6 X10*3/uL (4.8-10.8)
[2022-09-05 14:09] LABS: Alanine Aminotransferase 17 U/L (0-31); Albumin Level 4.4 g/dL (3.5-5.0); Alkaline Phosphatase 59 U/L (39-117); Anion Gap 16 (12-20); Aspartate Amino Transferase 17 U/L (5-31); Blood Urea Nitrogen 15 mg/dL (9-16); Calcium 9.9 mg/dL (8.4-10.2); Carbon Dioxide 24 mmol/L (22-29); Chloride 107 mmol/L (96-108); Estimated Glomerular Filt Rate > 60; Gamma Glutamyl Transpeptidase 24 U/L (7-33); Glucose Fasting 103 mg/dL (60-99); Lipase 17 U/L (8-78); Potassium 4.6 mmol/L (3.3-5.1); Sodium 142 mmol/L (135-145); Total Protein 6.9 g/dL (6.5-8.0)
[2022-09-05 14:15] LABS: Amylase 48 U/L (28-100)
== END 2022-09-05 09:39 | disposition home or self-care (01) ==
LOC: HO.HMGCLDS 09:38
PROVIDERS: PCP Internal Medicine; Visit Provider Internal Medicine
DX: R10.11 Right upper quadrant pain (principal); K91.5 Postcholecystectomy syndrome
CPT/HCPCS: 36415; 80053; 82150; 82977; 83690; 85025; 85610

== ENCOUNTER 2022-09-09 09:02 | Outpatient (REF) | payer MEDICARE, SELFPAY ==
--- NOTE | ~2022-09-09 | US_ITS ---
EXAMINATION: US ABDOMEN COMPLETE CLINICAL INFORMATION: Right upper quadrant pain. COMPARISON: Abdominal ultrasound 08/29/2021 TECHNIQUE: Real-time imaging of the abdominal viscera. Today's examination is mildly limited secondary to overlying bowel gas. FINDINGS: Visualized portions of pancreas are normal in appearance. PANCREAS: Normal. ABDOMINAL AORTA: The proximal, mid, and distal segments are normal in caliber. INFERIOR VENA CAVA: Visualized portions are normal. LIVER: The liver is normal in size. The liver contour is normal. There are echogenicity is mildly increased diffusely. No focal hepatic lesion. There is no intrahepatic biliary duct dilatation seen. GALLBLADDER: Surgically absent. COMMON BILE DUCT: 0.8 cm in diameter. RIGHT KIDNEY: Normal. No hydronephrosis. No renal calculi or focal parenchymal lesions. The kidney measures 9.3 cm in maximum dimension. LEFT KIDNEY: The kidney measures 10.3 cm in maximum dimension. Several parapelvic cysts are noted, the largest measuring approximately 1.8 cm. No renal calculi or hydronephrosis of the left kidney. SPLEEN: Normal. The spleen measures 9.4 cm in maximum dimension. FREE FLUID: None. US/US abdomen complete IMPRESSION: 1. Diffusely increased liver echogenicity. This is a nonspecific finding but most suggestive of hepatic steatosis. Correlation with liver enzymes recommended. 2. Left-sided parapelvic cysts.
== END 2022-09-09 09:03 | disposition home or self-care (01) ==
LOC: HO.HMGCX 09:02
PROVIDERS: PCP Internal Medicine; Visit Provider Internal Medicine
DX: R10.11 Right upper quadrant pain (principal); K91.5 Postcholecystectomy syndrome
CPT/HCPCS: 76700

== ENCOUNTER 2022-12-15 12:23 | Outpatient (REF) | payer OTHER, SELFPAY ==
[2022-12-15 14:18] LABS: Alanine Aminotransferase 20 U/L (0-31); Anion Gap 15 (12-20); Aspartate Amino Transferase 18 U/L (5-31); Blood Urea Nitrogen 15 mg/dL (9-16); Calcium 10.2 mg/dL (8.4-10.2); Carbon Dioxide 27 mmol/L (22-29); Chloride 105 mmol/L (96-108); Cholesterol 228 mg/dL; Estimated Glomerular Filt Rate > 60; Glucose Fasting 100 mg/dL (60-99); HDL Cholesterol 66 mg/dL; LDL Cholesterol Calculated 131 mg/dl; Potassium 4.6 mmol/L (3.3-5.1); Sodium 142 mmol/L (135-145); Triglycerides 157 mg/dL
[2022-12-15 14:48] LABS: Folate 17.9 ng/mL (> or = 4.0); Vitamin B12 347 pg/mL (200-900); Vitamin D 25-OH Total 42.1 ng/mL (>30)
== END 2022-12-15 12:24 | disposition home or self-care (01) ==
LOC: HO.HMGCLDS 12:23
PROVIDERS: PCP Internal Medicine; Visit Provider Internal Medicine
DX: Z00.01 Encounter for general adult medical examination with abnormal findings (principal); E78.2 Mixed hyperlipidemia; R73.01 Impaired fasting glucose; Z78.0 Asymptomatic menopausal state
CPT/HCPCS: 36415; 80048; 80061; 82306; 82607; 82746; 84450; 84460

== ENCOUNTER 2023-05-15 10:35 | Outpatient (REF) | payer OTHER, SELFPAY ==
--- NOTE | ~2023-05-15 | MM_ITS ---
EXAMINATION: MM SCREENING DIGITAL BREAST TOMOSYNTHESIS, BILATERAL CLINICAL INFORMATION: Screening. Asymptomatic. COMPARISON: Mammography: This study is compared with prior exams dating back to 2019. TECHNIQUE: Digital breast tomosynthesis is performed in both the craniocaudal and mediolateral oblique views along with computer-aided detection (CAD). Synthesized 2D images are generated from the tomosynthesis. FINDINGS: There are scattered areas of fibroglandular density (ACR BI-RADS breast composition Category b). There are no significant masses, abnormal calcifications, or other abnormalities. There is a biopsy tissue marker in the upper outer quadrant of the left breast. It lies in close proximity to benign calcifications. MM/MM tomosynthesis screening BI IMPRESSION: No mammographic evidence of malignancy. ASSESSMENT: BI-RADS BI-RADS 2 - Benign Findings RECOMMENDATION: Routine annual mammography screening. 1 year F/U This examination should not preclude the clinical evaluation of a suspicious palpable abnormality. This patient's information was entered into a reminder system with a target due date for their next mammogram.
== END 2023-05-15 10:36 | disposition home or self-care (01) ==
LOC: HO.MAMMO 10:35
PROVIDERS: PCP Internal Medicine; Visit Provider Internal Medicine
DX: Z12.31 Encounter for screening mammogram for malignant neoplasm of breast (principal)
CPT/HCPCS: 77063; 77067

== ENCOUNTER → 2023-05-15 10:45 | Outpatient (BNV) | payer OTHER, SELFPAY | PROVIDERS: PCP Internal Medicine; Visit Provider Radiology Diagnostic Radiology | DX: Z12.31 Encounter for screening mammogram for malignant neoplasm of breast (principal) | CPT/HCPCS: 77063; 77067 ==

== ENCOUNTER 2023-12-29 08:02 | Outpatient (AMB) | payer OTHER, SELFPAY ==
--- NOTE | 2023-12-29 08:05 | MHC.PC.OV ---
Vital Signs 12/29/23 08:11 Height 5 ft 7 in Weight 157 lb BMI 24.6 BP 124/68 Blood Pressure Location Rt brachial Position Sitting Pulse 70 Pulse Source Pulse Oximeter Pulse Oximetry (%) 96 Oxygen Delivery Method Room Air Intake Visit Reasons: PE Intake Note: Pt is here today for her PE: last mammogram 05/15/23, bone density scan 05/13/22, colonoscopy 02/19/21 Allergies amoxicillin [AMOXICILLIN] Allergy (Severe, Verified 09/05/24 14:45) HIVES Medication List - Last Reconciled 12/29/23 by Анна Bhatt MD [id number] mg 2 tabs PO DAILY cholecalciferol (vitamin D3) (Vitamin D3) 25 mcg PO DAILY multivitamin 1 tab PO DAILY multivitamin with minerals (Hair,Skin and Nails tablet) 1 tab PO DAILY omega-3 fatty acids 1,000 mg PO DAILY omeprazole 40 mg PO DAILY PRN Tobacco use date assessed: 12/29/23 Fall risk assessment: No Falls in past year Last assessed Fall Risk: 12/29/23 Dental Screening Dental Screen Date: 12/29/23 Did you have a dental visit in the last 12 months?: Yes Did you have a dental problem in the last 6 months where you did not have access to dental care?: Yes Was dental information given to patient?: Patient has dentist HPI PE HPI Details 74-year-old lady with history of melanoma, mixed dyslipidemia, osteoarthritis, here today for physical exam. She is up-to-date with her breast cancer screening, with last mammogram done 05/15/2023, and is scheduled already for her mammogram and bone density scan later in April this year. She is up-to-date with her colon cancer screening, last done 02/19/2021, done by Dr. King with hyperplastic polyp removed, repeat screening again due in 2030. She has history of melanoma, currently sees bakery helper yearly, followed by Dr. Mcmahon. She has been having intermittent episodes of epigastric pain, related at times to food intake, denies having any nausea, no vomiting, no bright red blood in stool, no dark stools, has been taking omeprazole 40 mg daily temporary relief [facility] Medical History (Updated 09/05/24 @ 14:51 by Анна Bhatt MD) History of cholelithiasis Cyst of left kidney History of melanoma Biliary colic Polymyalgia rheumatica Osteopenia of left femoral neck Mixed dyslipidemia Primary localized osteoarthrosis of multiple sites Fibromyalgia Melanoma in situ of right lower extremity Surgical History History of laparoscopic cholecystectomy H/O colonoscopy H/O melanoma excision History of cataract surgery History of tonsillectomy H/O hysterectomy with unilateral oophorectomy Family History Father Acute leukemia SLE (systemic lupus erythematosus) Lymphoma Mother Colon cancer Maternal Aunt Breast cancer Social History Household Members Other:: alone Housing: House Are you a primary complex care nurse to a significant other at home: No Do you presently have visiting nurse or other home services: No Alcohol intake: current Alcohol intake frequency: 0-2 drinks per day Alcohol type: wine Patient Tobacco Use Status: Never used Tobacco e-Cigarette/Vaping Use: Never Used Second Hand Smoke Exposure: No Current occupational status: retired Current occupation: [employer] Cognitive needs: No Hearing needs: No Vision needs: Yes Questionnaire PHQ-9 Over the last 2 weeks, how often have you been bothered by any of the following problems? 1. Little interest or pleasure in doing things: not at all 2. Feeling down, depressed, or hopeless: not at all 3. Trouble falling or staying asleep, or sleeping too much: not at all 4. Feeling tired or having little energy: nearly every day 5. Poor appetite or overeating: not at all 6. Feeling bad about yourself - or that you are a failure or have let yourself or your family down: not at all 7. Trouble concentrating on things, such as reading the newspaper or watching television: not at all 8. Moving or speaking so slowly that other people could have noticed. Or the opposite - being so fidgety or restless that you have been moving around a lot more than usual: not at all 9. Thoughts that you would be better off or of hurting yourself in some way: not at all Total score: 3 Depression Screening Interpretation: Negative Depression Screening Done: Yes 38602 - PHQ-9 Billing: Yes Source: Developed by Drs. Kavon Rascon, Rosa Cash, Karsten Kelley and colleagues, with an educational edie from [employer]. Thrive Questionnaire Date Thrive assessed: 12/29/23 I am a: Patient What is your living situation today?: I have a steady place to live Within the past 12 months, did the food you bought not last and you didn't have the money to get more?: Never true Within the past 12 months, did you worry whether your food would run out before you got money to buy more?: Never true Do you have trouble paying for medicines?: No Do you have trouble getting transportation to medical appointments?: No Do you have trouble paying your heating and electricity bill?: No Do you have trouble taking care of your child, family member or friend?: No Do you have trouble with day-to-day activities such as bathing, preparing meals, shopping, managing finances, etc.?: No Are you currently unemployed and looking for a job?: No Are you interested in more education?: No THRIVE Score: 0 AUDIT C Alcohol Use Questionnaire (AUDIT-C) 1. How often do you have a drink containing alcohol?: Never 3. How often do you have six or more drinks on one occasion?: Never Total Score: 0 CAMILA-7 AMB Questionnaire CAMILA-7 Date CAMILA - 7 assessed: 12/29/23 Feeling nervous, anxious, or on edge: 0 = Not at all Not being able to stop or control worryin = Not at all Worrying too much about different things: 0 = Not at all Trouble relaxin = Not at all Being so restless that it is hard to sit still: 0 = Not at all Becoming easily annoyed or irritable: 0 = Not at all Feeling afraid as if something awful might happen: 0 = Not at all Total CAMILA-7 score (0-4 normal; 5-9 mild; 10-14 moderate; 15-21 severe): 0 Source: Developed by Drs. Kavon Rascon, Karsten Felix and colleagues, with an educational edie from [employer]. CAMILA-7 Assessment Billing CAMILA-7 Assessment Tool: CAMILA-7 Assessment 90716 Review of Systems Const Denies chills, Denies fever(s), Denies poor appetite and Denies weakness Eyes Denies change in vision ENT Reports no additional complaints Card Denies chest pain, Denies rapid heart rate, Denies irregular heart rhythm, Denies lightheadedness and Denies dyspnea Resp Denies cough and Denies dyspnea GI Reports as per HPI, Denies hematochezia and Denies change in stool character Denies difficulty voiding, Denies dysuria and Denies urinary incontinence Musc Reports no additional complaints Skin/Breast Denies rash Neuro Denies weakness Psych Reports no additional complaints Endo Reports no additional complaints Neal/Lymph Reports no additional complaints Aller/Immun Reports no additional complaints Physical exam (Primary Care) Vital Signs: Last Vital Signs Pulse 70 12/29/23 08:11 BP 124/68 12/29/23 08:11 Pulse Ox 96 12/29/23 08:11 Oxygen Delivery Method Room Air 12/29/23 08:11 BMI result Body Mass Index 24.6 Tobacco/Smoking Status: Tobacco use Status Tobacco use date assessed 12/29/23 12/29/23 08:10 Patient Tobacco Use Status Never used Tobacco 12/29/23 08:10 e-Cigarette/Vaping Use Never Used 12/29/23 08:10 PHQ-9: PHQ-9 Score PHQ-9: Total score 3 12/29/23 08:31 Depression Screening Interpretation: Negative Thrive Assessment: Date of Thrive Assessment Date Thrive assessed 12/15/22 12/29/23 08:10 Const Other: Alert oriented x3, no acute cardiorespiratory distress noted, ambulatory with normal gait Orientation/consciousness: patient oriented x3 [facility] Mouth: Normal oral and palatal mucosa present, oropharynx normal and moist mucous membranes Eyes General: appearance normal, both eyes and all related structures Neck Other: Supple, no lymphadenopathy, thyroid gland nonpalpable Chest Breast/axilla palpation: normal palpation of the breasts Resp Effort & Inspection: normal respiratory effort and able to speak in complete sentences Auscultation: clear to auscultation bilaterally Cardio Other: S1-S2 present regular rate and rhythm Bruits: no abdominal aortic bruits GI Inspection: Yes normal to inspection Palpation (GI): No Abdominal aortic bruit present, Soft to palpation, nontender, no guarding and no masses Auscultation: normal bowel sounds General: Yes no CVA tenderness Back/Spine/Pelvis Back: no CVA tenderness Skin General skin exam: no rashes or lesions noted Neuro General: patient oriented x3, gait normal, moves all extremities, Normal light touch and pain sensation, no focal motor deficits and CN's II-XI intact bilaterally Extrem General: Yes full ROM, Yes no joint enlargement, Yes no clubbing, cyanosis or edema and Yes normal gait Psych Appearance: grossly normal and well kempt Mental Status: mental status grossly normal Speech and movement: Normal speech and movement present Affect: normal affect Attitude: cooperative Thought process: Normal thought process present Thought content: Normal thought content present Coding Level of Care Code Est Pt Prev Care >65y(79444) Diagnoses Annual visit for general adult medical examination with abnormal findings Z00.01 Mixed dyslipidemia E78.2 Primary localized osteoarthrosis of multiple sites M19.91 Recurrent epigastric abdominal pain R10.13 Additional Codes CAMILA-7 Assessment Billing - CAMILA-7 Assessment Tool: CAMILA-7 Assessment 16904 ([id number])
[2023-12-29 08:11] VITALS: BP 124/68; PULSE 70; O2SAT 96; BMI 24.6
== END 2023-12-29 08:48 | disposition home or self-care (01) ==
PROVIDERS: PCP Internal Medicine; Visit Provider Internal Medicine
DX: Z00.01 Encounter for general adult medical examination with abnormal findings (principal); E78.2 Mixed hyperlipidemia; M19.91 Primary osteoarthritis, unspecified site; R10.13 Epigastric pain
CPT/HCPCS: 99499

== ENCOUNTER 2023-12-31 10:56 | Outpatient (REF) | payer OTHER, SELFPAY ==
--- NOTE | ~2023-12-31 | US_ITS ---
EXAMINATION: US ABDOMEN COMPLETE CLINICAL INFORMATION: Cyst of kidney, acquired. Upper abdominal pain. COMPARISON: Ultrasound abdomen complete 09/09/2022 and 08/29/2021. TECHNIQUE: Real-time imaging of the abdominal viscera. FINDINGS: PANCREAS: The pancreas appears unremarkable, without masses or ductal dilatation, with the exception of the tail which is obscured by bowel gas. ABDOMINAL AORTA: The proximal, mid, and distal segments are normal in caliber. INFERIOR VENA CAVA: Visualized portions are normal. LIVER: The liver is normal in size. The liver contour is normal. There is diffuse increased liver parenchymal echogenicity, consistent with hepatic steatosis. No focal hepatic lesion. There is no intrahepatic biliary duct dilatation seen. GALLBLADDER: Surgically absent. COMMON BILE DUCT: Normal in caliber measuring 0.9 cm in diameter. RIGHT KIDNEY: No hydronephrosis. No renal calculi or focal parenchymal lesions. The kidney measures 9.6 cm in maximum dimension. LEFT KIDNEY: No hydronephrosis. Probable benign parapelvic cysts again seen which need no additional imaging or follow-up. No renal calculi or solid focal parenchymal lesions. The kidney measures 11.0 cm in maximum dimension. SPLEEN: Normal. The spleen measures 7.9 cm in maximum dimension. FREE FLUID: None. US/US abdomen complete IMPRESSION: Hepatic steatosis. Left-sided parapelvic renal cysts which need no additional imaging or follow-up.
[2023-12-31 13:44] LABS: Alanine Aminotransferase 27 U/L (0-31); Anion Gap 11 (12-20); Aspartate Amino Transferase 23 U/L (5-31); Blood Urea Nitrogen 13 mg/dL (9-16); Calcium 9.7 mg/dL (8.4-10.2); Carbon Dioxide 27 mmol/L (22-29); Chloride 107 mmol/L (96-108); Cholesterol 213 mg/dL (<200); Estimated Glomerular Filt Rate > 60; Glucose Fasting 103 mg/dL (60-99); HDL Cholesterol 64 mg/dL (>40); LDL Cholesterol Calculated 121 mg/dL (<100); Sodium 141 mmol/L (135-145); Triglycerides 141 mg/dL (<150)
[2023-12-31 14:04] LABS: Vitamin D 25-OH Total 83.9 ng/mL (>30)
[2023-12-31 14:13] LABS: Folate 13.4 ng/mL (> or = 4.0); Vitamin B12 661 pg/mL (200-900)
== END 2023-12-31 10:57 | disposition home or self-care (01) ==
LOC: HO.HMGCX 10:56
PROVIDERS: PCP Internal Medicine; Visit Provider Internal Medicine
DX: Z00.01 Encounter for general adult medical examination with abnormal findings (principal); K63.5 Polyp of colon; E78.2 Mixed hyperlipidemia; M19.91 Primary osteoarthritis, unspecified site; N28.1 Cyst of kidney, acquired; R10.10 Upper abdominal pain, unspecified
CPT/HCPCS: 36415; 76700; 80048; 80061; 82306; 82607; 82746; 84443; 84450; 84460; 85014; 85018

== ENCOUNTER 2024-02-08 08:13 | Outpatient (AMB) | payer OTHER, SELFPAY ==
--- NOTE | 2024-02-08 08:21 | A.OFFVIS_ITS ---
Vital Signs 02/08/24 08:23 Height 5 ft 7 in Weight 158 lb 4.67 oz BMI 24.8 BP 137/69 Blood Pressure Location Lt brachial Position Sitting Pulse 85 Intake Visit Reasons: Epigastric pain Intake Note: Patient is established patient, last seen in 2020 for Diverticulitis. Patient presents today for epigastric pain. Patient had ultrasound in December, PCP recommended she follow up with GI. Patient reports epigastric pain, it has been better since she stopped drinking apple cider vinegar with water. Patient reports pain today is about a 2-3 out of 10. Patient does not report burning sensation. Ultrasound results in December report: Hepatic steatosis. Left-sided parapelvic renal cysts which need no additional imaging or follow-up. Allergies amoxicillin [AMOXICILLIN] Allergy (Severe, Verified 02/08/24 08:26) HIVES Medication List - Last Reconciled 02/08/24 by Selene Rea PA-C [id number] mg 2 tabs PO DAILY cholecalciferol (vitamin D3) (Vitamin D3) 25 mcg PO DAILY multivitamin 1 tab PO DAILY multivitamin with minerals (Hair,Skin and Nails tablet) 1 tab PO DAILY omega-3 fatty acids 1,000 mg PO DAILY omeprazole 40 mg PO DAILY PRN HPI Comments Details: A 73 y/o female with epigastric pain - she wast taking apple cider vinegar for arthritis--in noted this increased her symptoms. However she has d/c-apple cider vinegar, sx- lessened-she does not have acid reflux Omeprazole prescribed by pcp- she does not take take it except she is she were to get acid reflux however she does not have heartburn or reflux. Revealed blood work liver enzymes are normal, H and H is normal She overall is feeling well No nausea, vomiting, hematemesis, hematochezia fever or chills [facility] Medical History Cyst of left kidney History of melanoma Cholelithiasis Biliary colic Polymyalgia rheumatica Low back pain Arthritis Osteopenia of left femoral neck Mixed dyslipidemia Primary localized osteoarthrosis of multiple sites Fibromyalgia Melanoma in situ of right lower extremity Surgical History History of laparoscopic cholecystectomy H/O colonoscopy H/O melanoma excision History of cataract surgery History of tonsillectomy H/O hysterectomy with unilateral oophorectomy Family History Father Acute leukemia SLE (systemic lupus erythematosus) Lymphoma Mother Colon cancer Maternal Aunt Breast cancer Social History Household Members Other:: alone Housing: House Are you a primary clinical manager home care to a significant other at home: No Do you presently have visiting nurse or other home services: No Alcohol intake: current Alcohol intake frequency: 0-2 drinks per day Alcohol type: wine Patient Tobacco Use Status: Never used Tobacco e-Cigarette/Vaping Use: Never Used Second Hand Smoke Exposure: No Current occupational 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[employer] Cognitive needs: No Hearing needs: No Vision needs: Yes Review of Systems Const All systems reviewed & are unremarkable except as noted in HPI and below Card Denies chest pain and Denies dyspnea Resp Denies dyspnea GI Reports abdominal pain (Vague, rare -), Denies change in bowel habits, Denies heartburn, Denies diarrhea, Denies nausea and Denies vomiting Physical Exam Vital Signs: Last Vital Signs Pulse 85 02/08/24 08:23 BP 137/69 02/08/24 08:23 BMI result Body Mass Index 24.8 Const General: cooperative, healthy appearing, comfortable, no acute distress and well groomed Orientation/consciousness: patient oriented x3 Limitations: no limitations Eyes Sclerae: sclerae normal Resp Effort & Inspection: normal respiratory effort and able to speak in complete sentences Auscultation: clear to auscultation bilaterally, no rales, no rhonchi and no wheezes Cardio Rate: regular rate Rhythm: regular rhythm Heart sounds: S1 normal heart sound present and S2 normal heart sound present GI Palpation (GI): Soft to palpation and nontender Auscultation: normal bowel sounds Skin General skin exam: no rashes or lesions noted Neuro General: patient oriented x3 Extrem General: Yes full ROM Psych Appearance: grossly normal and well kempt Mental Status: mental status grossly normal Speech and movement: Normal speech and movement present and Clear speech present Affect: normal affect Attitude: cooperative Thought process: Normal thought process present Thought content: Normal thought content present Insight: Good insight present (Psych) Judgement: Good judgement present (Psych) Results Reviewed Results Reviewed: 2020- Dr. King Impression and Post Procedure Diagnosis: Colonoscopy Findings: One small polyp removed Moderate to severe diverticulosis seen in the left colon Moderate hemorrhoids on retroflexed exam. Plan: Await pathology results Patient has an appointment on 03/06/21 in the GI Clinic with JENARO Rodriguez. Repeat Colonoscopy interval based on path results - in 5 years if polyps are adenomatous and 10 years if polyps are hyperplastic. Above findings were reviewed with the patient and colon polyps and diverticulosis handouts were given in the discharge area Name: Ana Sears Age/Sex: 70/F Attending: Antonio King MD : 1950 Submitted by: Antonio King MD Copies to: Анна Bhatt MD MR #: [id number] Status: [facility] Collected: 02/19/21 Location: [facility] Received: 02/19/21 Diagnosis Rectum, polypectomy: Hyperplastic mucosal polyp with inflammatory changes. US/US abdomen complete IMPRESSION: Hepatic steatosis. Left-sided parapelvic renal cysts which need no additional imaging or follow-up. 01/03/24 Normal H&H normal liver enzymes Assessment & Plan Assessment & Plan (1) Epigastric pain: Comment: Very pleasant 73-year-old woman-epigastric pain that has pretty much resolved since she had discontinued apple cider vinegar-she was taking for arthritis No acid reflux Normal liver enzymes Code(s): R10.13 - Epigastric pain Category: Medical Plan: Monitor symptoms report any worsening (2) Hyperplastic colon polyp: Comment: Repeat asymptomatic colonoscopy 10 year Code(s): K63.5 - Polyp of colon Category: Medical Plan: Up-to-date for colonoscopy Plan HP- stool antigen if positive will UGI series EGD if indicated Orders: Orders [place] upper GI series Today R10.13 - Epigastric pain H pylori Ag Stool Today A04.8 - Other specified bacterial intestinal infections Patient Instructions: Reflux precautions reviewed Continue to monitor symptoms any change will report Will get HP- stool antigen if positive will UGI series-reassurance EGD if indicated Encouraged to call questions or concerns Coding Level of Care Code Est Pt Level 3 (17538) Diagnoses Epigastric pain R10.13 Hyperplastic colon polyp K63.5 Time Spent (min) 30
[2024-02-08 08:23] VITALS: BP 137/69; PULSE 85; BMI 24.8
== END 2024-02-08 08:58 | disposition home or self-care (01) ==
PROVIDERS: PCP Internal Medicine; Visit Provider Physician Assistant
DX: R10.13 Epigastric pain (principal); K63.5 Polyp of colon
CPT/HCPCS: 99213

== ENCOUNTER → 2024-02-08 08:13 | Outpatient (BNVA) | payer OTHER, SELFPAY | PROVIDERS: PCP Internal Medicine; Visit Provider Physician Assistant ==

== ENCOUNTER 2024-02-17 08:49 | Outpatient (REF) | payer OTHER, SELFPAY | END 2024-02-17 08:50 | disposition home or self-care (01) | LOC: HO.LNP 08:49 | PROVIDERS: Visit Provider Physician Assistant | DX: A04.8 Other specified bacterial intestinal infections (principal) | CPT/HCPCS: 87338 ==

== ENCOUNTER 2024-04-11 07:49 | Outpatient (REF) | payer OTHER, SELFPAY ==
--- NOTE | ~2024-04-11 | FL_ITS ---
EXAMINATION: XR FLUOROSCOPY UPPER GI WITH AIR CLINICAL INFORMATION: Epigastric pain COMPARISON: None TECHNIQUE: Fluoroscopic air contrast upper GI examination was performed utilizing standard techniques with thin and thick barium and effervescent granules. Numerous spot images were obtained. FINDINGS: Dual and single contrast images of the esophagus demonstrate normal caliber and contour. There is a granular appearance to the mid and distal esophageal mucosa. No masses or ulcerations are seen. Mild cricopharyngeal achalasia is present. Esophageal peristalsis is moderately disorganized. A small type I hiatal hernia is present. Gastroesophageal reflux is seen in the distal esophagus. No cystectomy clips are present in the right upper quadrant. Dual contrast and single contrast images of the stomach demonstrated a normal contour. There are a few small foci of contrast pooling in the body the stomach that may represent small superficial aphthous ulcers. No masses are present. Contrast freely passed into the gastric antrum and duodenal bulb without delay. Single and air-contrast images of the duodenal bulb demonstrate no abnormality. The duodenal sweep has a normal appearance, course, and mucosal fold appearance. The imaged proximal jejunum has a normal fold pattern and caliber. FLUOROSCOPY TIME: 3 minutes 56 seconds Number of Spot Images: 12 Number of Cine: 15 DOSE AREA PRODUCT: 2441 uGy-m2 (microgray-meter squared) FL/FL upper GI series IMPRESSION: 1. Mild cricopharyngeal achalasia 2. Granular appearance of the mid and distal esophageal mucosa that likely represents esophagitis. 3. Moderately disorganized esophageal peristalsis . 4. Small type I hiatal hernia with mild to moderate gastroesophageal reflux. 5. There are a few small foci of contrast pooling in the body the stomach that may present small superficial aphthous ulcers. Recommend correlation with EGD. This procedure was performed by Augustin Lopez PA-C, and supervised by Dr. Deluna
== END 2024-04-11 07:50 | disposition home or self-care (01) ==
LOC: HO.XRAY 07:49
PROVIDERS: PCP Internal Medicine; Visit Provider Physician Assistant
DX: R10.13 Epigastric pain (principal)
CPT/HCPCS: 74240

== ENCOUNTER → 2024-04-11 07:53 | Outpatient (BNV) | payer OTHER, SELFPAY | PROVIDERS: PCP Internal Medicine; Visit Provider Physician Assistant Surgical | DX: R10.13 Epigastric pain (principal) | CPT/HCPCS: 74246 ==

== ENCOUNTER 2024-05-18 11:06 | Outpatient (REF) | payer OTHER, SELFPAY ==
--- NOTE | ~2024-05-18 | MM_ITS ---
EXAMINATION: BONE DENSITOMETRY CLINICAL INDICATION: Screening for osteoporosis. COMPARISON: Previous BD dated 05/13/2022 and baseline BD dated 06/21/2010. TECHNIQUE: Using a [employer] DXA System (software version: 13.1) manufactured by [employer], dual-energy x-ray absorptiometry was performed of the lumbar spine and left hip. The images are of good technical quality. Summary results are attached. FINDINGS: LEFT FEMUR, NECK: Current: BMD 0.819 g/cm2, Z-score 0.2, T-score -1.6, osteopenia. Prior: BMD 0.898 g/cm2. Baseline: BMD 0.971 g/cm2. LEFT FEMUR, TOTAL: Current: BMD 0.876 g/cm2, Z-score 0.6, T-score -1.0, normal, 8.8% decrease from previous, 14.2% decrease from baseline (<5% change is not significant). Prior: BMD 0.960 g/cm2. Baseline: BMD 1.021 g/cm2. AP SPINE L1-L4: Current: BMD 1.119 g/cm2, Z-score 1.1, T-score -0.5, normal, 1.1% increase from previous, 3.7% decrease from baseline (<5% change is not significant). Prior: BMD 1.107 g/cm2. Baseline: BMD 1.162 g/cm2. IDENTIFIED RISK FACTORS: Early menopause, hysterectomy, left nephrectomy, osteoporosis, secondary osteoporosis. HISTORY OF FRACTURE: None listed. MEDICATIONS: Calcium or multivitamin. Vitamin D. MM/XR DEXA axial skeleton IMPRESSION: 1. DIAGNOSIS: Osteopenia based on the lowest T-score value of -1.6 in the femoral neck applying World Health Organization criteria. 2. 10-YEAR FRACTURE RISK PREDICTION, FRAX: Major osteoporotic fracture (clinical spine, forearm, hip or shoulder) 12.1%. Hip fracture 2.6%. 3. Treatment Recommendations: NOF guidelines recommend consideration for treatment in postmenopausal women and men age 50 and older presenting with the following: -A hip or vertebral (clinical or morphometric) fracture. -T-score less than or equal to -2.5 at the femoral neck or spine after appropriate evaluation to exclude secondary causes. -Low bone mass at the hip or spine and a 10-year fracture probability by FRAX of greater than or equal to 3% for hip fracture or greater than or equal to 20% for major osteoporotic fracture based on the [place] adapted WHO algorithm. 4. Other Recommendations: All treatment decisions require clinical judgment and consideration of individual patient factors, including patient preferences, comorbidities, previous drug use, risk factors not captured in the FRAX model (e.g. frailty, falls, vitamin D deficiency, increased bone turnover, interval significant decline in bone density) and possible under or overestimation of fracture risk by FRAX. Additional medical evaluation for secondary cause of low bone mineral density may be appropriate. FUTURE SCAN RECOMMENDATION: People with diagnosed cases of osteoporosis or at high risk for fracture should have regular bone mineral density tests. For patients eligible for Medicare, routine testing is allowed once every 2 years. The testing frequency can be increased to one year for patients who have rapidly progressing disease, those who are receiving or discontinuing medical therapy to restore bone mass, or have additional risk factors. Electronically signed by: Fxo Silverio MD 05/24/2024 11:05 AM EDT
--- NOTE | ~2024-05-18 | MM_ITS ---
EXAMINATION: MM SCREENING DIGITAL BREAST TOMOSYNTHESIS, BILATERAL CLINICAL INFORMATION: Screening. Asymptomatic. COMPARISON: Mammography: Comparison is made with available priors TECHNIQUE: Digital breast tomosynthesis is performed in both the craniocaudal and mediolateral oblique views along with computer-aided detection (CAD). Synthesized 2D images are generated from the tomosynthesis. FINDINGS: There are scattered areas of fibroglandular density (ACR BI-RADS breast composition Category b). Left marker clip. There are no significant masses, abnormal calcifications, or other abnormalities. MM/MM tomosynthesis screening BI IMPRESSION: No mammographic evidence of malignancy. ASSESSMENT: BI-RADS BI-RADS 2 - Benign Findings RECOMMENDATION: Routine annual mammography screening. 1 year F/U This examination should not preclude the clinical evaluation of a suspicious palpable abnormality. This patient's information was entered into a reminder system with a target due date for their next mammogram. Electronically signed by: Lisa Ann DO 06/10/2024 04:45 PM EDT
== END 2024-05-18 11:07 | disposition home or self-care (01) ==
LOC: HO.MAMMO 11:06
PROVIDERS: PCP Internal Medicine; Visit Provider Internal Medicine
DX: Z12.31 Encounter for screening mammogram for malignant neoplasm of breast (principal); Z13.820 Encounter for screening for osteoporosis; Z78.0 Asymptomatic menopausal state
CPT/HCPCS: 77063; 77067; 77080

== ENCOUNTER → 2024-05-18 11:15 | Outpatient (BNV) | payer OTHER, SELFPAY | PROVIDERS: PCP Internal Medicine; Visit Provider Internal Medicine | DX: Z12.31 Encounter for screening mammogram for malignant neoplasm of breast (principal) | CPT/HCPCS: 77063; 77067 ==

== ENCOUNTER 2024-12-27 08:11 | Outpatient (REF) | payer OTHER, SELFPAY ==
--- OUTSIDE RECORDS SUMMARY | 2024-12-27 08:25 | XMS_ITS | Encounter Summary ---
Author Organization [employer] Address [address] [place] [address] [address] [place] [address] Care Team Providers Care Field Observer Name Role Phone Unavailable Primary Care Provider Unavailabl e Encounter Details Date Type Department Care Team (Latest Contact Info) Description 03/04/2019 Abstract [facility] CONVERSIONS Dental, Provider, DDS Social History Tobacco Use Types Packs/Day Years Used Date Smoking Tobacco: Never Assessed Comments Unknown Sex and Gender Information Value Date Recorded Sex Assigned at Female 07/21/2022 10:38 AM EDT Legal Sex Female 10:38 AM EDT Gender Identity Female 07/21/2022 10:38 AM EDT Sexual Orientation Straight 12/29/2022 8: 13 AM EDT documented as of this encounter Plan of Treatment Not on file documented as of this encounter Visit Diagnoses Not on filedocumented in this encounter
--- OUTSIDE RECORDS SUMMARY | 2024-12-27 08:25 | XMS_ITS | Clinical Summary ---
Author Organization [employer] Address [address] [place] [address] [address] [place] [address] Care Team Providers Care Crystal Evaluator Name Role Phone Unavailable Primary Care Provider Unavailabl e Allergies Active Allergy Reactions Criticality Noted Date Comments Amoxicillin 10/01/2022 Medications FLUoxetine (PROzac) 40 MG capsule Take 1 capsule by mouth at bed time. Active calcium carbonate (Os-Jose F) 1250 (500 Ca) MG tablet Active cholecalciferol (Vitamin D-3) 25 MCG (1000 UT) tablet Take by mouth. Active multivitamin (Theragran) tablet Active omega-3 (Fish Oil) 1000 MG capsule Active omeprazole (PriLOSEC) [address] capsule Take 40 mg by mouth in the morning. 09/30/2022 Active Active Problems Problem Noted Date Diagnosed Date Arthritis 12/29/2013 Urticaria 12/29/2013 Skin rash 12/29/2013 Abnormal breathing 12/29/2013 Encounters Date Type Department Care Team Description 12/02/2024 2:00 PM EDT Office Visit [facility] [address] [place] [address] Mary Figueroa DMD 11/29/2024 Travel from Last 3 Months Social History Tobacco Use Types Packs/Day Years Used Date Smoking Tobacco: Never Passive Smoke Exposure: Never Smokeless Tobacco: Never Tobacco Cessation:Counseling Given: Not Answered Alcohol Use Standard Drinks/Week Comments Yes 1 (1 standard drink = 0.6 oz pur e alcohol) Comments Unknown Sex and Gender Information Value Date Recorded Sex Assigned at Female 07/21/2022 10:38 AM EDT Legal Sex Female 10:38 AM EDT Gender Identity Female 07/21/2022 10:38 AM EDT Sexual Orientation Straight 12/29/2022 8: 13 AM EDT Last Filed Vital Signs Vital Sign Reading Time Taken Comments Blood Pressure 130/76 08/02/2024 3:16 PM EST Pulse 65 07/14/2024 10:54 AM EDT Temperature - - Respiratory Rate - - Oxygen Saturation - - Inhaled Oxygen Concentration - - Weight - - Height - - Body Mass Index - - Plan of Treatment Health Maintenance Due Date Last Done Comments Depression Screening 1950 SDOH Screening 1950 Alcohol/Substance Use Screening 1960 Hepatitis C Screening 1966 Zoster Vaccines (2 of 3) 06/04/2014 04/09/2014 RSV Patients and Patients Aged 60 years or older (1 - 1-dose 75+ series) 2023 COVID-19 Vaccine ( season) 2024 09/04/2022, 09/02/2021, 02/11/2021, Additional history exists Influenza Vaccine (#1) 2024 , 08/03/2019, 07/16/2019, Additional history exists Dental Oral Exam 01/13/2025 07/14/2024, 08/2024, 07/02/2023, Additional history exists Dental Prophylaxis 01/13/2025 07/14/2024, 0 01/01/2024, 07/02/2023, Additional history exists Tobacco Screening 12/02/2025 12/02/2024 Dental X-Ray: Bitewings 12/03/2025 12/03/19, 01/01/2024, 10/23/2022 Dental X-Ray: Full Mouth 01/01/2027 01/01/2024 DTaP/Tdap/Td Vaccines (2 - Td or Tdap) 04/09/2027 04/09/2017 Pneumococcal Vaccine: 50+ Years Completed 12/15/2022, 08/03/2018 HIB Vaccines Aged Out No longer eligi ble based on patient's age to complete this topic HPV Vaccines Aged Out No longer eligi ble based on patient's age to complete this topic Hepatitis A Vaccines Aged Out No long er eligible based on patient's age to complete this topic Hepatitis B Vaccines Aged Out No long er eligible based on patient's age to complete this topic IPV Vaccines Aged Out No longer eligi ble based on patient's age to complete this topic Meningococcal Vaccine Aged Out No soha dora eligible based on patient's age to complete this topic RSV under 20 months Aged Out No longe r eligible based on patient's age to complete this topic Rotavirus Vaccines Aged Out No longer eligible based on patient's age to complete this topic Procedures Procedure Name Priority Date/Time Associated Diagnosis Comments 3 INTRAORAL - PERIAPICAL FIRST RADIOGRAPHIC IMAGE Routine 12/02/2024 2:00 PM EDT BITEWING - SINGLE RADIOGRAPHIC IMAGE Routine 12/02/2024 2:00 PM EDT LIMITED ORAL EVALUATION - PROBLEM FOCUSED Routine 12/02/2024 2:00 PM EDT PROPHYLAXIS - ADULT Routine 07/14/2024 1 1:00 AM EDT PERIODIC ORAL EVALUATION - ESTABLISHED PATIENT Routine 07/14/2024 11:00 AM EDT INTRAORAL - COMPLETE SERIES OF RADIOGRAPHIC IMAGES Routine 01/01/2024 1:00 PM EDT from Last 3 Months or Most Recently Relevant to Health Maintenance Insurance DENTAL - [facility]
--- OUTSIDE RECORDS SUMMARY | 2024-12-27 08:25 | XMS_ITS | Encounter Summary ---
Author Organization [employer] Address [address] [place] [address] [address] [place] [address] Care Team Providers Care Display Carver Name Role Phone Unavailable Primary Care Provider Unavailabl e Encounter Details Date Type Department Care Team (Latest Contact Info) Description 01/02/2021 Abstract [facility] CONVERSIONS Dental, Provider, DDS Social History Tobacco [...]
--- OUTSIDE RECORDS SUMMARY | 2024-12-27 08:25 | XMS_ITS | Encounter Summary ---
Author Organization [employer] Address [address] [place] [address] [address] [place] [address] Care Team Providers Care Box Storage Worker Name Role Phone Unavailable Primary Care Provider Unavailabl e Encounter Details Date Type Department Care Team (Latest Contact Info) Description 01/23/2022 Abstract [facility] CONVERSIONS Dental, Provider, DDS Social History Tobacco [...]
[2024-12-27 10:11] LABS: Hematocrit 45.6 % (37.0-47.0); Hemoglobin 14.7 g/dl (12.0-16.0)
[2024-12-27 13:02] LABS: Alanine Aminotransferase 41 U/L (0-31); Anion Gap 10 (12-20); Aspartate Amino Transferase 38 U/L (5-31); Blood Urea Nitrogen 16 mg/dL (9-16); Calcium 9.9 mg/dL (8.4-10.2); Carbon Dioxide 28 mmol/L (22-29); Chloride 107 mmol/L (96-108); Cholesterol 253 mg/dL (<200); Estimated Glomerular Filt Rate > 60; Glucose Fasting 100 mg/dL (60-99); HDL Cholesterol 70 mg/dL (>40); LDL Cholesterol Calculated 150 mg/dL (<100); Potassium 4.3 mmol/L (3.3-5.1); Sodium 141 mmol/L (135-145); Triglycerides 166 mg/dL (<150)
[2024-12-27 13:18] LABS: Vitamin D 25-OH Total 66.6 ng/mL (>30)
== END 2024-12-27 08:12 | disposition home or self-care (01) ==
LOC: HO.HMGCLDS 08:11
PROVIDERS: PCP Internal Medicine; Visit Provider Internal Medicine
DX: N28.1 Cyst of kidney, acquired (principal); E78.2 Mixed hyperlipidemia; Z13.220 Encounter for screening for lipoid disorders; Z13.1 Encounter for screening for diabetes mellitus; Z78.0 Asymptomatic menopausal state
CPT/HCPCS: 36415; 80048; 80061; 82306; 84450; 84460; 85014; 85018

== ENCOUNTER 2025-01-03 08:29 | Outpatient (AMB) | payer OTHER, SELFPAY ==
--- NOTE | 2025-01-03 08:41 | MHC.PC.OV ---
Vital Signs 01/03/25 08:46 Height 5 ft 7 in Weight 166 lb 6 oz BMI 26.1 BP 132/82 Blood Pressure Location Lt brachial Position Sitting Respiration 16 Pulse 82 Pulse Source Pulse Oximeter Temp 98.0 F Temp Source Oral Pulse Oximetry (%) 96 Oxygen Delivery Method Room Air Intake Visit Reasons: PE Intake Note: Pt is here today for her PE: last mammogram 05/18/24, bone density scan 05/18/24, colonoscopy 02/19/21 Allergies amoxicillin [AMOXICILLIN] Allergy (Severe, Verified 01/03/25 09:00) HIVES Medication List - Last Reconciled 01/03/25 by Анна Bhatt MD aspirin (Adult Low Dose Aspirin) 81 mg PO DAILY kdugcev-tlhbvqxaq-cvuf 333-133-8.3 mg 2 tabs PO DAILY cholecalciferol (vitamin D3) (Vitamin D3) 25 mcg PO DAILY magnesium 400mg po qd multivitamin 1 tab PO DAILY multivitamin with minerals (Hair,Skin and Nails tablet) 1 tab PO DAILY omega-3 fatty acids 1,000 mg PO DAILY omeprazole 40 mg PO DAILY PRN Tobacco use date assessed: 01/03/25 Fall risk assessment: No Falls in past year Last assessed Fall Risk: 01/03/25 Dental Screening Dental Screen Date: 01/03/25 Did you have a dental visit in the last 12 months?: Yes Did you have a dental problem in the last 6 months where you did not have access to dental care?: No Was dental information given to patient?: Patient has dentist HPI PE HPI Details 74-year-old lady with history of osteopenia, impaired fasting glucose, achalasia of esophagus, and mixed dyslipidemia currently diet controlled, here today for a physical exam. She is up-to-date with her breast cancer screening and bone density screening last done April 2024. She is also up-to-date with her screening colonoscopy done in 2020 with removal only of hyperplastic polyp, due for a repeat colonoscopy in 2030. She has been feeling well, but gets occasional sharp pains on anterior chest, usually after eating. Denies any relation to activity, no accompanying shortness of breath or lightheadedness [facility] Medical History (Updated 01/15/25 @ 16:41 by Анна Bhatt MD) Osteopenia of left femoral neck Impaired fasting glucose Ulcer of antrum of stomach Esophageal dysmotility Achalasia of esophagus Heartburn symptom Epigastric pain History of cholelithiasis Cyst of left kidney History of melanoma Biliary colic Polymyalgia rheumatica Mixed dyslipidemia Primary localized osteoarthrosis of multiple sites Fibromyalgia Melanoma in situ of right lower extremity Surgical History History of laparoscopic cholecystectomy H/O colonoscopy H/O melanoma excision History of cataract surgery History of tonsillectomy H/O hysterectomy with unilateral oophorectomy Family History Father Acute leukemia SLE (systemic lupus erythematosus) Lymphoma Mother Colon cancer Maternal Aunt Breast cancer Social History Household Members Other:: alone Housing: House Are you a primary acute care registered nurse to a significant other at home: No Do you presently have visiting nurse or other home services: No Alcohol intake: current Alcohol intake frequency: 0-2 drinks per day Alcohol type: wine Patient Tobacco Use Status: Never used Tobacco e-Cigarette/Vaping Use: Never Used Second Hand Smoke Exposure: No Current occupational status: retired Current occupation: [employer] Cognitive needs: No Hearing needs: No Vision needs: Yes Questionnaire PHQ-9 Over the last 2 weeks, how often have you been bothered by any of the following problems? 1. Little interest or pleasure in doing things: not at all 2. Feeling down, depressed, or hopeless: not at all 3. Trouble falling or staying asleep, or sleeping too much: not at all 4. Feeling tired or having little energy: not at all 5. Poor appetite or overeating: not at all 6. Feeling bad about yourself - or that you are a failure or have let yourself or your family down: not at all 7. Trouble concentrating on things, such as reading the newspaper or watching television: not at all 8. Moving or speaking so slowly that other people could have noticed. Or the opposite - being so fidgety or restless that you have been moving around a lot more than usual: not at all 9. Thoughts that you would be better off or of hurting yourself in some way: not at all Total score: 0 Depression Screening Interpretation: Negative Depression Screening Done: Yes 44260 - PHQ-9 Billing: Yes Source: Developed by Drs. Kavon Rascon, Rosa Cash, Karsten Kelley and colleagues, with an educational edie from [employer]. Thrive Questionnaire Date Thrive assessed: 01/03/25 I am a: Patient What is your living situation today?: I have a steady place to live Within the past 12 months, did the food you bought not last and you didn't have the money to get more?: Never true Within the past 12 months, did you worry whether your food would run out before you got money to buy more?: Never true Do you have trouble paying for medicines?: No Do you have trouble getting transportation to medical appointments?: No Do you have trouble paying your heating and electricity bill?: No Do you have trouble taking care of your child, family member or friend?: No Do you have trouble with day-to-day activities such as bathing, preparing meals, shopping, managing finances, etc.?: No Are you currently unemployed and looking for a job?: No Are you interested in more education?: No THRIVE Score: 0 AUDIT C Alcohol Use Questionnaire (AUDIT-C) 1. How often do you have a drink containing alcohol?: Never Total Score: 0 CAMILA-7 AMB Questionnaire CAMILA-7 Date CAMILA - 7 assessed: 01/03/25 Feeling nervous, anxious, or on edge: 0 = Not at all Not being able to stop or control worryin = Not at all Worrying too much about different things: 0 = Not at all Trouble relaxin = Not at all Being so restless that it is hard to sit still: 0 = Not at all Becoming easily annoyed or irritable: 0 = Not at all Feeling afraid as if something awful might happen: 0 = Not at all Total CAMILA-7 score (0-4 normal; 5-9 mild; 10-14 moderate; 15-21 severe): 0 Source: Developed by Drs. Kavon Rascon, Karsten Felix and colleagues, with an educational edie from [employer]. Review of Systems Const Reports no additional complaints Eyes Denies change in vision ENT Reports no additional complaints Card Reports as per HPI, Denies irregular heart rhythm, Denies radiating jaw, neck or arm pain, Denies palpitations and Denies dyspnea Resp Denies dyspnea GI Denies change in bowel habits and Reports heartburn Reports no additional complaints Musc Reports no additional complaints Skin/Breast Denies breast pain, Denies breast mass and Denies rash Neuro Reports no additional complaints Psych Reports no additional complaints Endo Reports no additional complaints and Denies palpitations Neal/Lymph Reports no additional complaints Aller/Immun Reports no additional complaints Physical exam (Primary Care) Vital Signs: Last Vital Signs Temp 98.0 F 01/03/25 08:46 Pulse 82 01/03/25 08:46 Resp 16 01/03/25 08:46 BP 132/82 01/03/25 08:46 Pulse Ox 96 01/03/25 08:46 Oxygen Delivery Method Room Air 01/03/25 08:46 BMI result Body Mass Index 26.1 Tobacco/Smoking Status: Tobacco use Status Tobacco use date assessed 01/03/25 01/03/25 08:44 Patient Tobacco Use Status Never used Tobacco 01/03/25 08:44 e-Cigarette/Vaping Use Never Used 01/03/25 08:44 PHQ-9: PHQ-9 Score PHQ-9: Total score 0 01/15/25 16:33 Depression Screening Interpretation: Negative Thrive Assessment: Date of Thrive Assessment Date Thrive assessed 01/03/25 01/03/25 08:52 Advance Care Planning discussion: Completed/Scanned Date of discussion: 01/03/25 Who was present: Patient Forms completed: Health Care Proxy Time spent: 16-45 minutes Actual minutes spent: 2 Const Other: Alert oriented x3, no acute cardiorespiratory distress noted, ambulatory with normal gait Orientation/consciousness: patient oriented x3 HENLA Mouth: Normal oral and palatal mucosa present, oropharynx normal and moist mucous membranes Eyes General: appearance normal, both eyes and all related structures Neck Other: Supple, no lymphadenopathy, thyroid gland nonpalpable Chest Breast/axilla palpation: normal palpation of the breasts Resp Effort & Inspection: normal respiratory effort and able to speak in complete sentences Auscultation: clear to auscultation bilaterally Cardio Other: S1-S2 present regular rate and rhythm Bruits: no abdominal aortic bruits GI Inspection: Yes normal to inspection Palpation (GI): No Abdominal aortic bruit present, Soft to palpation, nontender, no guarding and no masses Auscultation: normal bowel sounds General: Yes no CVA tenderness Back/Spine/Pelvis Back: no CVA tenderness Skin General skin exam: no rashes or lesions noted Neuro General: patient oriented x3, gait normal, moves all extremities, Normal light touch and pain sensation, no focal motor deficits and CN's II-XI intact bilaterally Extrem General: Yes full ROM, Yes no joint enlargement, Yes no clubbing, cyanosis or edema and Yes normal gait Psych Appearance: grossly normal and well kempt Mental Status: mental status grossly normal Speech and movement: Normal speech and movement present Affect: normal affect Attitude: cooperative Thought process: Normal thought process present Thought content: Normal thought content present Results Reviewed Results Reviewed: Name: Ana Sears Age/Sex: 74/F : 1950 Unit#: [id number] Attend Dr: Анна Bhatt MD Re12/27/24 Status: DEP REF Location: [facility] Disch: SPEC : [id number] [place]: 12/27/24 STATUS: COMP REQ : [id number] RECD: 12/27/[address]: Анна Bhatt MD COMP: 12/27/24 ENTERED: 12/27/[address]: ORDERED: Met Prof Fast, AST, ALT, Lipid Panel, Vitamin D 25-OH Test Result Flag Reference Sodium 141 135-145 mmol/L Potassium 4.3 3.3-5.1 mmol/L CL 107 96-108 mmol/L CO2 28 22-29 mmol/L Gap 10 L 12-20 BUN 16 9-16 mg/dL Creat 0.73 0.5-1.4 mg/dL eGFR > 60 Chronic Kidney Disease: Estimated GFR < 60 mL/min/1.73m2 Severe Kidney Disease: Estimated GFR < 15 mL/min/1.73m2 FBS 100 H 60-99 mg/dL A fasting glucose from 100-125 mg/dl is considered impaired (pre-diabetes). CA 9.9 8.4-10.2 mg/dL AST (GOT) 38 H 5-31 U/L ALT (GPT) 41 H 0-31 U/L Triglyceride 166 H <150 mg/dL Desirable Triglyceride: less than 150 mg/dL Borderline High Triglyceride 150-199 mg/dL High Triglyceride: 200-499 mg/dL Very High Triglyceride: greater than or equal to 5OO mg/dL Cholesterol 253 H <200 mg/dL Desirable Cholesterol: less than 200 mg/dL Borderline High Cholesterol: 200-239 mg/dL High Cholesterol: greater than 239 mg/dL LDL Calculated 150 H <100 mg/dL Desirable LDL: less than 100 mg/dL Near Optimal/Above Optimal LDL: 110-129 mg/dL Borderline High LDL: 130-159 mg/dL High LDL: 160-189 mg/dL Very High LDL: greater than or equal to 190 mg/dL HDL 70 >40 mg/dL Desirable HDL: greater than 40 mg/dL Note: This HDL assay may give artificially low results in patients with liver disease. Vitamin D 25-OH 66.6 >30 ng/mL Health Based Reference Values* < 20 ng/mL Deficient 20-30 ng/mL Insufficient > 30 ng/mL Sufficient Coding Level of Care Code Est Pt Prev Care >65y(02560) Diagnoses Annual visit for general adult medical examination with abnormal findings Z00.01 Left-sided chest pain R07.9 Epigastric pain R10.13 Heartburn symptom R12 Mixed dyslipidemia E78.2 Primary localized osteoarthrosis of multiple sites M19.91 Advanced directives, counseling/discussion Z71.89 Achalasia of esophagus K22.0 Esophageal dysmotility K22.4 Ulcer of antrum of stomach K25.9 Osteopenia of left femoral neck M85.852 Impaired fasting glucose R73.01 Additional Codes PHQ-9 - 65060 - PHQ-9 Billing: Yes ([id number]) Vital Signs *Quality* - Advance Care Planning discussion: Completed/Scanned ([id number]) Vital Signs *Quality* - Time spent: 16-45 minutes ([id number]) Assessment & Plan Assessment & Plan (1) Annual visit for general adult medical examination with abnormal findings: Code(s): Z00.01 - Encounter for general adult medical examination with abnormal findings Plan: Results of fasting labs discussed with patient. Reinforced importance of following a low-cholesterol diet and getting regular exercise. Date with her screening mammogram and osteoporosis screening. Up-to-date with her colonoscopy. No longer gets cervical cancer screenings. Reminded to get her yearly flu shot, and recommended to get shingles vaccine, up-to-date with her pneumococcal vaccine and Tdap. Has had COVID vaccines in the past but no longer gets boosters (2) Left-sided chest pain: Code(s): R07.9 - Chest pain, unspecified Category: Medical Plan: EKG done today showed normal sinus rhythm, with no acute ST-T changes, pain likely due to heartburn symptoms. Will still obtain a cardiology consult (3) Epigastric pain: Code(s): R10.13 - Epigastric pain Category: Medical Plan: Stop omeprazole and will switch to pantoprazole 40 mg 1 capsule once a day an hour before eating. Avoidance of triggers for heartburn, do not lie down right away after eating, upper GI series ordered, referred back to GI Clinic for further evaluation management (4) Heartburn symptom: Code(s): R12 - Heartburn Category: Medical Plan: Switched from omeprazole to pantoprazole 40 mg daily, referred back to GI Clinic for follow-up (5) Mixed dyslipidemia: Code(s): E78.2 - Mixed hyperlipidemia Category: Medical Plan: Reviewed recent fasting lipid profile with patient with elevated triglycerides and LDL cholesterol . Continue adherence to low-cholesterol diet and regular exercise, at least 30 minutes 3 to 4 times a week. Advised patient to make healthy food choices, eat more fruits, vegetables, whole grains, wild caught fish and low-fat dairy. Limit amount of meat and fried or fatty food products, as well as processed foods and fast foods. Follow-up scheduled with repeat fasting lipid panel in 6 months. (6) Primary localized osteoarthrosis of multiple sites: Code(s): M19.91 - Primary osteoarthritis, unspecified site Category: Medical Plan: Take Tylenol only as needed for joint pain avoidance of NSAIDs (7) Advanced directives, counseling/discussion: Code(s): Z71.89 - Other specified counseling Plan: Initiated the conversation about Advanced Directives. Advanced Directives help patients prepare for current and future decisions about their medical treatment and place of care. Discussed with patient that it is a process where a patients current condition and prognosis are reviewed, their wishes for information regarding their illness are elicited, and likely medical dilemmas are presented and options discussed. Healthcare proxy form completed today. MOLST form already done on previous visit. These forms can be amended as needed, reviewed yearly and make changes as needed (8) Achalasia of esophagus: Code(s): K22.0 - Achalasia of cardia Category: Medical Plan: Referred back to GI Clinic for follow-up, upper GI series ordered (9) Esophageal dysmotility: Code(s): K22.4 - Dyskinesia of esophagus Category: Medical Plan: Upper GI series ordered, referred back to GI Clinic for further evaluation management (10) Ulcer of antrum of stomach: Code(s): K25.9 - Gastric ulcer, unspecified as acute or chronic, without hemorrhage or perforation Category: Medical Plan: Upper GI series ordered, referred back to GI Clinic for further evaluation management (11) Osteopenia of left femoral neck: Comment: Seen on bone density September 2019 Code(s): M85.852 - Other specified disorders of bone density and structure, left thigh Category: Medical Plan: Bone density last done April 2024 showed only presence of osteopenia in left femoral neck, continue with weight-bearing exercise, and taking calcium and vitamin-D 3 supplements (12) Impaired fasting glucose: Code(s): R73.01 - Impaired fasting glucose Category: Medical Plan: Your previous fasting blood sugars were elevated above 100 mg/dL. Impaired glucose metabolism increases the risk for developing diabetes mellitus type 2, as well as heart attack and stroke later on. Lifestyle changes that promotes weight loss, healthy eating habits, and regular exercise are important, and can prevent the progression to diabetes repeat another hemoglobin A1c in June 2025 Orders: Orders FL upper GI series 01/03/25 R07.9 - Chest pain, unspecified, R10.13 - Epigastric pain, R12 - Heartburn Hemoglobin A1c 06/21/25 E78.2 - Mixed hyperlipidemia, R73.01 - Impaired fasting glucose Lipid Panel 06/21/25 E78.2 - Mixed hyperlipidemia, R73.01 - Impaired fasting glucose AMB EKG-In Office 01/03/25 R07.9 - Chest pain, unspecified Referrals Gastroenterology Referral R12 - Heartburn, R10.13 - Epigastric pain, K22.0 - Achalasia of cardia, K22.4 - Dyskinesia of esophagus, K25.9 - Gastric ulcer, unspecified as acute or chronic, without hemorrhage or perforation Cardiology Referral R07.9 - Chest pain, unspecified Medications: New pantoprazole Take 1 tablet 1 hour before a meal or 2 hours after eating 40 mg PO DAILY 30 tabs 1RF Discontinued omeprazole Discontinued Reason: Doctor's Order 40 mg PO DAILY PRN 30 caps 2RF heartburn
--- OUTSIDE RECORDS SUMMARY | 2025-01-03 08:43 | XMS_ITS | Clinical Summary ---
Author Organization [employer] Address [address] [place] [address] [address] [place] [address] Care Team Providers Care Mobile Application Developer Name Role Phone Unavailable Primary Care Provider [...] Description 12/02/2024 2:00 PM EDT Office Visit [facility] ADULT DENTAL [address] [place] [address] Mary Figueroa DMD 11/29/2024 Travel from Last [...] Relevant to Health Maintenance Insurance DENTAL - [facility]
--- OUTSIDE RECORDS SUMMARY | 2025-01-03 08:43 | XMS_ITS | Encounter Summary ---
Author Organization [employer] Address [address] [place] [address] [address] [place] [address] Care Team Providers Care Cooker Loader Name Role Phone Unavailable Primary Care Provider Unavailabl e Encounter Details Date Type Department Care Team (Latest Contact Info) Description 01/23/2022 Abstract [facility] CONVERSIONS Dental, Provider, DDS Social History Tobacco [...]
--- OUTSIDE RECORDS SUMMARY | 2025-01-03 08:43 | XMS_ITS | Encounter Summary ---
Author Organization [employer] Address [address] [place] [address] [address] [place] [address] Care Team Providers Care Airplane Technician Name Role Phone Unavailable Primary Care Provider Unavailabl e Encounter Details Date Type Department Care Team (Latest Contact Info) Description 01/02/2021 Abstract [facility] CONVERSIONS Dental, Provider, DDS Social History Tobacco [...]
--- OUTSIDE RECORDS SUMMARY | 2025-01-03 08:43 | XMS_ITS | Encounter Summary ---
Author Organization [employer] Address [address] [place] [address] [address] [place] [address] Care Team Providers Care Car Dispatcher Name Role Phone Unavailable Primary Care Provider Unavailabl e Encounter Details Date Type Department Care Team (Latest Contact Info) Description 03/04/2019 Abstract [facility] CONVERSIONS Dental, Provider, DDS Social [...]
[2025-01-03 08:46] VITALS: BP 132/82; PULSE 82; RESP 16; TEMP 36.7; O2SAT 96; BMI 26.1
== END 2025-01-03 09:41 | disposition home or self-care (01) ==
PROVIDERS: PCP Internal Medicine; Visit Provider Internal Medicine
DX: Z00.01 Encounter for general adult medical examination with abnormal findings (principal); R07.9 Chest pain, unspecified; R10.13 Epigastric pain; R12 Heartburn; E78.2 Mixed hyperlipidemia; M19.91 Primary osteoarthritis, unspecified site; Z71.89 Other specified counseling; K22.0 Achalasia of cardia; K22.4 Dyskinesia of esophagus; K25.9 Gastric ulcer, unspecified as acute or chronic, without hemorrhage or perforation; M85.852 Other specified disorders of bone density and structure, left thigh; R73.01 Impaired fasting glucose

== ENCOUNTER → 2025-01-03 08:29 | Outpatient (BNVA) | payer OTHER, SELFPAY | PROVIDERS: PCP Internal Medicine; Visit Provider Internal Medicine | DX: Z00.01 Encounter for general adult medical examination with abnormal findings (principal); R07.9 Chest pain, unspecified; R10.13 Epigastric pain; R12 Heartburn; E78.2 Mixed hyperlipidemia; M19.91 Primary osteoarthritis, unspecified site; K22.0 Achalasia of cardia; K22.4 Dyskinesia of esophagus; K25.9 Gastric ulcer, unspecified as acute or chronic, without hemorrhage or perforation; M85.852 Other specified disorders of bone density and structure, left thigh; R73.01 Impaired fasting glucose; Z71.89 Other specified counseling | CPT/HCPCS: 96127 ==

== ENCOUNTER → 2025-01-05 09:51 | Outpatient (BNVA) | payer OTHER, SELFPAY | PROVIDERS: PCP Internal Medicine ==

== ENCOUNTER → 2025-01-26 10:13 | Outpatient (BNVA) | payer OTHER, SELFPAY | PROVIDERS: PCP Internal Medicine; Visit Provider Dietitian, Registered ==

== ENCOUNTER 2025-03-10 09:12 | Outpatient (REF) | payer OTHER, SELFPAY ==
--- OUTSIDE RECORDS SUMMARY | 2025-03-07 09:30 | XMS_ITS | Encounter Summary ---
Author Organization [email or web address] Address [address] [facility] [address] [place] [address] Care Team Providers Care Electric Dolly Operator Name Role Phone Unavailable Primary Care Provider Unavailabl e Reason for Visit * Reason Comments [place] Encounter Details Date Type Department Care Team (Late st Contact Info) Description 03/07/2025 9:30 AM EDT Office Visit [facility] [address] [place] [address] Mary Figueroa DMD Social History Tobacco Use Types Packs/Day Years Used Date Smoking Tobacco: Never Passive Smoke Exposure: Never Smokeless Tobacco: Never Alcohol Use Standard Drinks/Week Comments Yes 1 (1 standard drink = 0.6 oz pur e alcohol) Comments Unknown Sex and Gender Information Value Date Recorded Sex Assigned at Female 07/21/2022 10:38 AM EDT Legal Sex Female 10:38 AM EDT Gender Identity Female 07/21/2022 10:38 AM EDT Sexual Orientation Straight 12/29/2022 8: 13 AM EDT documented as of this encounter Progress Notes * Mary Figueroa DMD - 03/07/2025 9:30 AM EDT Dental procedures in this visit [id number] - CROWN - PORCELAIN/CERAMIC 3 (Completed) Service provider: Mary Figueroa DMD Billing provider: Olivia Arenas DDS Patient ID: Ana Ortezb is a 74 y.o. female. Time Out: Date: 03/07/2025 Location: [facility] Tooth: #3 Procedure: [place] Verified the above with patient, event marketing assistant, and provider. Confirmed via patient's chart, intraorally and by radiographs. Lead Developer: not applicable BruxZir crown seated and cemented on #[address] Mary Figueroa DMD Risk, benefits, and alternatives discussed with the patient. CONSENT FORM INITIALED & SIGNED BY THE PATIENT AND COUNTERSIGNED BY DR. Mary Figueroa DMD Medical history: Reviewed in EHR Vitals: There were no vitals taken for this visit. Allergies: Reviewed in EHR Medications: Reviewed in EHR - LA used: None used. - Temporary crown removed. - Temporary cement removed from tooth surface. - [place] seated (without cement) - Margin adaptation confirmed by clinical examination. - Occlusion checked using articulating paper - Bitewing of #3 taken to confirm the adaptation of the margins. - [place] cemented using Rely-X - Removed excess cement. - Proximal contact confirmed using dental floss. - Post-op bitewing taken to confirm marginal seal. All patient questions answered. Patient comfortable upon dismissal. NV: Recare Provider: Dr. Mary Figueroa DMD Tea Taster: Thais Pratt Supervising Dentist: Dr. Olivia Arenas DDS documented in this encounter Plan of Treatment Upcoming Encounters Date Type Department Care Team (Late st Contact Info) Description 03/28/2025 10:00 AM EDT Office Visit [facility] ADULT DENT[facility] [address] [place] [address] Jordan Buckley documented as of this encounter Procedures Procedure Name Priority Date/Time Associated Diagnosis Comments 3 CROWN - PORCELAIN/CERAMIC Routine 03/07/2025 9:30 AM EDT documented in this encounter Visit Diagnoses Not on filedocumented in this encounter
--- NOTE | ~2025-03-10 | FL_ITS ---
EXAMINATION: XR FLUOROSCOPY UPPER GI WITH AIR CLINICAL INFORMATION: Chest pain COMPARISON: None available. TECHNIQUE: Routine upper GI air contrast study was performed in upright and lying position. FINDINGS: Following oral administration of thick barium and effervescent granules there is normal propagation bolus from the oral cavity through the pharynx, esophagus into stomach without any obstruction, narrowing or extrinsic compression. On placing patient in supine and prone lying position there is moderate increased gastric secretions seen. The mucosal pattern of the esophagus, stomach, duodenal bulb and this CT is normal. The course, caliber and peristalsis stomach is normal. There are sutures in the right upper quadrant from previous cholecystectomy. There is mild gastroesophageal reflux without hiatal hernia FLUOROSCOPY TIME: 1 minute 50 seconds DOSE AREA PRODUCT: 1629 uGy-m2 (microgray-meter squared) FL/FL upper GI w air IMPRESSION: Increased gastric secretions suggestive of hyper acidity. No mucosal erosions or ulcerations. Moderate gastroesophageal reflux without hiatal hernia Electronically signed by: Vinay Sanchez MD 03/10/2025 04:30 PM EDT
== END 2025-03-10 09:13 | disposition home or self-care (01) ==
LOC: HO.XRAY 09:12
PROVIDERS: PCP Internal Medicine; Visit Provider Internal Medicine
DX: R07.9 Chest pain, unspecified (principal); R10.13 Epigastric pain; Z90.49 Acquired absence of other specified parts of digestive tract
CPT/HCPCS: 74246

== ENCOUNTER → 2025-03-10 09:15 | Outpatient (BNV) | payer OTHER, SELFPAY | PROVIDERS: PCP Internal Medicine; Visit Provider Radiology Diagnostic Radiology | DX: K21.9 Gastro-esophageal reflux disease without esophagitis (principal) | CPT/HCPCS: 74246 ==

== ENCOUNTER 2025-03-16 07:49 | Outpatient (AMB) | payer OTHER, SELFPAY ==
--- NOTE | 2025-03-16 07:52 | A.OFFVIS_ITS ---
Vital Signs 03/16/25 07:56 03/16/25 09:05 Height 5 ft 7 in Weight 162 lb BMI 25.4 BP 137/59 L 175/95 H Blood Pressure Location Lt brachial Lt brachial Position Sitting Sitting Pulse 81 85 Pulse Source Pulse Oximeter Pulse Oximetry (%) 97 Oxygen Delivery Method Room Air Intake Visit Reasons: GI series f/u - Epigastric pain Intake Note: Patient complex follow up for GI series and h-pylori results- Epigastric pain/Selene vangie was 02/08/24. Patient denies any GI issues. Patient needed Omeprazole refill, shw went back to due Pantoprazole did not work for her. 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: No Accompanied by: Self / Same As Patient Allergies amoxicillin (AMOXICILLIN) Allergy (Severe, Verified 03/16/25 09:28) HIVES Medication List - Last Reconciled 03/16/25 by Tammie Graf CNP aspirin (Adult Low Dose Aspirin) 81 mg PO DAILY [id number]-gbekuulec-lnoa 333-133-8.3 mg 2 tabs PO DAILY cholecalciferol (vitamin D3) (Vitamin D3) 25 mcg PO DAILY magnesium 400mg po qd multivitamin 1 tab PO DAILY multivitamin with minerals (Hair,Skin and Nails tablet) 1 tab PO DAILY omega-3 fatty acids 1,000 mg PO DAILY omeprazole 40 mg PO DAILY HPI HPI GI series f/u - Epigastric pain: Details: Patient is a 74-year-old female with PMH of fibromyalgia, OA and hyperlipidemia. Referred by PCP for further evaluation of esophageal dysmotility. Patient presents with ongoing epigastric pain that began approximately two years ago. The pain is described as severe and intermittent and at times; radiating to the back, neck, and jaw, with a particularly intense episodes in November. The pain is aggravated by eating and relieved somewhat by deep breaths. Severity is rated as very high during episodes, significantly impacting well-being. There is also a dull, bloating pain that is less intense and more persistent. Associated symptoms include occasional belching but no heartburn, nausea, vomiting, or dysphagia. No regurgitation or swallowing difficulties reported. Recent imaging confirm moderate acid reflux, but no current evidence of ulcer. Patient trialed both omeprazole and pantoprazole, but reports feeling best on omeprazole 40mg daily, which she is now taking but reports inconsistently; pantoprazole was self discontinued due to intolerance. History of fatty liver and elevated cholesterol noted. Occupational Therapist Assistant evaluation completed within the past month, with recommendations to add grains and fruit to an already clean diet; patient reports good adherence and no significant dietary issues. No changes in appetite or bowel habits, and weight has been stable. Patient is currently under evaluation for possible cardiac causes of symptoms, with a cardiology appointment scheduled for next month. Patient denies: fever/chills or melena/hematochezia. 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 [facility] Medical History (Updated 03/19/25 @ 10:26 by Tammie Graf CNP) Irregular heart rhythm Transaminitis Osteopenia of left femoral neck Impaired fasting glucose Ulcer of antrum of stomach Esophageal dysmotility Achalasia of esophagus Heartburn symptom Epigastric pain History of cholelithiasis Cyst of left kidney History of melanoma Biliary colic Polymyalgia rheumatica Mixed dyslipidemia Primary localized osteoarthrosis of multiple sites Fibromyalgia Melanoma in situ of right lower extremity Surgical History History of laparoscopic cholecystectomy H/O colonoscopy H/O melanoma excision History of cataract surgery History of tonsillectomy H/O hysterectomy with unilateral oophorectomy Family History Father Acute leukemia SLE (systemic lupus erythematosus) Lymphoma Mother Colon cancer Maternal Aunt Breast cancer Social History Household Members Other:: alone Housing: House Are you a primary dog daycare provider to a significant other at home: No Do you presently have visiting nurse or other home services: No Alcohol intake: current Alcohol intake frequency: 0-2 drinks per day Alcohol type: wine Patient Tobacco Use Status: Never used Tobacco Smoked in Last 30 Days: No e-Cigarette/Vaping Use: Never Used Second Hand Smoke Exposure: No Use of substances other than those prescribed or required for medical reasons: No Advance Directives: Yes Advance Directives on File: Yes Advance Directives Date on File: 01/03/25 Do you have a plan to hurt others: No Plan Current occupational 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[employer] Cognitive needs: No Hearing needs: No Vision needs: Yes Review of Systems Const Reports as per HPI ENT Reports as per HPI Card Reports as per HPI Resp Reports as per HPI GI Reports as per HPI Reports as per HPI Physical Exam Vital Signs: Last Vital Signs Pulse 81 03/16/25 07:56 BP 137/59 L 03/16/25 07:56 Pulse Ox 97 03/16/25 07:56 Oxygen Delivery Method Room Air 03/16/25 07:56 BMI result Body Mass Index 25.4 Const General: healthy appearing, no acute distress and well developed Nutritional Appearance: well nourished Orientation/consciousness: patient oriented x3 HEENT Head: Yes normal to inspection, Yes normocephalic and Yes atraumatic Face and sinus: Yes normal facial exam Eyes General: appearance normal, both eyes and all related structures Neck Neck: Yes normal visual inspection Resp Effort & Inspection: normal respiratory effort, able to speak in complete sentences, no tracheal deviation and symmetric chest movement Auscultation: clear to auscultation bilaterally Cardio Jugular venous distension: no JVD Rhythm: abnormal rhythm Heart sounds: no gallops and no murmurs Skin General skin exam: pallor (noticed towards the end of our visit ) Neuro General: patient oriented x3 Gait exam (Neuro): Normal gait present Psych Appearance: grossly normal Mental Status: mental status grossly normal Speech and movement: Normal speech and movement present Affect: normal affect Attitude: cooperative Thought process: Normal thought process present Thought content: Normal thought content present Insight: Good insight present (Psych) Judgement: Good judgement present (Psych) Results Reviewed Results Reviewed: Date of Service: 03/10/25 Procedure(s): FL upper GI w air Accession Number(s): [id number] cc: Анна Bhatt MD~ EXAMINATION: XR FLUOROSCOPY UPPER GI WITH AIR CLINICAL INFORMATION: Chest pain COMPARISON: None available. TECHNIQUE: Routine upper GI air contrast study was performed in upright and lying position. FINDINGS: Following oral administration of thick barium and effervescent granules there is normal propagation bolus from the oral cavity through the pharynx, esophagus into stomach without any obstruction, narrowing or extrinsic compression. On placing patient in supine and prone lying position there is moderate increased gastric secretions seen. The mucosal pattern of the esophagus, stomach, duodenal bulb and this CT is normal. The course, caliber and peristalsis stomach is normal. There are sutures in the right upper quadrant from previous cholecystectomy. There is mild gastroesophageal reflux without hiatal hernia FLUOROSCOPY TIME: 1 minute 50 seconds DOSE AREA PRODUCT: 1629 uGy-m2 (microgray-meter squared) FL/FL upper GI w air IMPRESSION: Increased gastric secretions suggestive of hyper acidity. No mucosal erosions or ulcerations. Moderate gastroesophageal reflux without hiatal hernia ------- Date of Service: 04/11/24 Procedure(s): FL upper GI series Accession Number(s): [id number] cc: Анна Bhatt MD; Selene Rea PA-C~ EXAMINATION: XR FLUOROSCOPY UPPER GI WITH AIR CLINICAL INFORMATION: Epigastric pain COMPARISON: None TECHNIQUE: Fluoroscopic air contrast upper GI examination was performed utilizing standard techniques with thin and thick barium and effervescent granules. Numerous spot images were obtained. FINDINGS: Dual and single contrast images of the esophagus demonstrate normal caliber and contour. There is a granular appearance to the mid and distal esophageal mucosa. No masses or ulcerations are seen. Mild cricopharyngeal achalasia is present. Esophageal peristalsis is moderately disorganized. A small type I hiatal hernia is present. Gastroesophageal reflux is seen in the distal esophagus. No cystectomy clips are present in the right upper quadrant. Dual contrast and single contrast images of the stomach demonstrated a normal contour. There are a few small foci of contrast pooling in the body the stomach that may represent small superficial aphthous ulcers. No masses are present. Contrast freely passed into the gastric antrum and duodenal bulb without delay. Single and air-contrast images of the duodenal bulb demonstrate no abnormality. The duodenal sweep has a normal appearance, course, and mucosal fold appearance. The imaged proximal jejunum has a normal fold pattern and caliber. FLUOROSCOPY TIME: 3 minutes 56 seconds Number of Spot Images: 12 Number of Cine: 15 DOSE AREA PRODUCT: 2441 uGy-m2 (microgray-meter squared) FL/FL upper GI series IMPRESSION: 1. Mild cricopharyngeal achalasia 2. Granular appearance of the mid and distal esophageal mucosa that likely represents esophagitis. 3. Moderately disorganized esophageal peristalsis . 4. Small type I hiatal hernia with mild to moderate gastroesophageal reflux. 5. There are a few small foci of contrast pooling in the body the stomach that may present small superficial aphthous ulcers. Recommend correlation with EGD. Operative Note Date of Service: 02/19/21 Narrative: Pre-op diagnosis: Colon cancer screening family history of colon cancer (mom in her 90's) Post-op diagnosis: other (Colon polyp, diverticulosis, hemorrhoids) Procedure: COLONOSCOPY TILL CECUM WITH SNARE POLYPECTOMY Consent: Indications for the procedure and potential complications of bleeding, perforation, reaction to medications and missed diagnosis were discussed with the patient and informed consent was obtained. Instrument: Olympus PCF H 190 L variable stiffness pediatric colonoscope Monitoring: Vital signs and clinical assessment, intermittent blood pressure monitoring, continuous EKG monitoring, Pulse oximetry and Carbon Dioxide monitoring were done throughout the procedure. Colon withdrawl time was 16 minutes. Procedure: The patient was placed in the left lateral decubitis position and pre-procedure medications were administered. After a digital rectal examination of the ano-rectum, the video colonoscope was inserted into the rectum and advanced through the colon to the cecum. The colonoscope was slowly withdrawn in a retrograde panoramic fashion and the colon mucosa was carefully examined including a retroflexed view of the rectum. Findings and interventions are described below. Procedure Difficulty: There was a sharp turn at 30-35 cm with narrowing (due to severe diverticulosis) which was navigated with some difficulty - no maneuvers were required Findings: Terminal Ileum: Not evaluated Cecum: Normal Ascending Colon: Normal Transverse Colon: Normal Descending Colon: Moderate diverticulosis Sigmoid Colon: Severe diverticulosis with luminal narrowing Rectum: A 7-8 mm sessile polyp removed with a cold snare Ano-rectum: Moderate internal hemorrhoids Colon preparation: Good after some irrigation Impression and Post Procedure Diagnosis: Colonoscopy Findings: One small polyp removed Moderate to severe diverticulosis seen in the left colon Moderate hemorrhoids on retroflexed exam. Plan: Await pathology results Patient has an appointment on 03/06/21 in the GI Clinic with JENARO Rodriguez. Repeat Colonoscopy interval based on path results - in 5 years if polyps are adenomatous and 10 years if polyps are hyperplastic. Above findings were reviewed with the patient and colon polyps and diverticulosis handouts were given in the discharge area PATHOLOGY Collected: 02/19/21 Location: [facility] Received: 02/19/21 Diagnosis Rectum, polypectomy: Hyperplastic mucosal polyp with inflammatory changes. Clinical History Pre-Op Dx: Screening Post-Op Dx: Polyp, diverticulosis, hemorrhoids Assessment & Plan Assessment & Plan (1) Transaminitis: Code(s): R74.01 - Elevation of levels of liver transaminase levels Category: Medical Plan: Prior elevated liver enzymes, hx of fatty liver, need to r/o other hepatic pathology and monitor for progression or alternative causes Additonal test: Repeat fasting LFTs with hepatitis/HIV panel, and clotting studies (2) Epigastric pain: Code(s): R10.13 - Epigastric pain Category: Medical Plan: Patient has a history of intermittent, severe epigastric pain with radiation, confirmed moderate acid reflux on 03/10/25 upper GI series (see above). Symptoms are partially responsive to omeprazole and lifestyle changes. No current boris dence of ulcer, but ongoing pain and risk factors (fatty liver, prior cholecystectomy) warrant further GI evaluation. Additional Tests: Schedule upper endoscopy to evaluate for esophageal/stomach pathology and r/o ulcer Medications: Continue omeprazole 40mg PO daily. Add famotidine HS as needed for breakthrough symptoms Encouraged to take omeprazole as prescribed, taken at least 30-60 minutes before a meal. Education on GERD prevention : -Advised against heavy meals; encouraged small, frequent meals instead of large ones. - Instructed to remain upright for 2?3 hours after eating. - Advised to avoid late-night meals, spicy foods, caffeine, alcohol, known dietary triggers, and tight-fitting clothing. - Emphasis placed on gradual implementation of lifestyle changes to improve adherence and symptom control. (3) Irregular heart rhythm: Code(s): I49.9 - Cardiac arrhythmia, unspecified Category: Medical Plan: Patient reports severe, episodic chest pain radiating to back/neck/jaw. Today on exam lightheadedness reported with findings of irregular heart rhythm and pallor noted on exam. ? PCV. However, given she is symptomatic today with no prior cardiac hx, instructed pt to seek immediate ER care to r/o potential cardiac etiology of symptoms. Risk factors include hypercholesterolemia, overweight, and family hx of malignancy. Cardiac etiology must be excluded given symptom severity and abnormal findings on exam. Spoke with ER nurse about escorted arrival to ER for above evaluation. Plan Follow-up after endoscopy or sooner as needed Time: I spent a total of 60 minutes on the date of encounter which includes: Preparing to see the patient (reviewed previous documentation, test results and medical history) Performing a medically appropriate exam and/or evaluation Ordering medications, tests, and procedures Documenting clinical information in the health record Orders: Orders IRON PROFILE 03/16/25 R74.01 - Elevation of levels of liver transaminase levels Hepatitis A,B,C Profile 03/16/25 R74.01 - Elevation of levels of liver transaminase levels Comprehensive Orange. Panel Fast 03/16/25 R74.01 - Elevation of levels of liver transaminase levels Smooth Muscle Antibody 03/16/25 R74.01 - Elevation of levels of liver transaminase levels SHAHRIAR Reflex Titer and Pattern 03/16/25 R74.01 - Elevation of levels of liver transaminase levels Prothrombin Time INR 03/16/25 R74.01 - Elevation of levels of liver transaminase levels C Reactive Protein 03/16/25 R74.01 - Elevation of levels of liver transaminase levels Immunoglobulins,IgG IgA IgM 03/16/25 R74.01 - Elevation of levels of liver transaminase levels Lipase 03/16/25 R74.01 - Elevation of levels of liver transaminase levels Mitochondrial Antibody 03/16/25 R74.01 - Elevation of levels of liver transaminase levels Medications: New omeprazole Take one tablet daily. Best taken 30 minutes before meal 40 mg PO DAILY 90 caps 1RF famotidine Take one tablet daily at bedtime as needed 20 mg PO DAILY PRN 90 tabs 1RF GERD Discontinued pantoprazole Take 1 tablet 1 hour before a meal or 2 hours after eating Discontinued Reason: Doctor's Order 40 mg PO DAILY 30 tabs 1RF Coding Level of Care Code New Pt New Pt Level 5 (24043) Patient Type New Diagnoses Transaminitis R74.01 Epigastric pain R10.13 Irregular heart rhythm I49.9
--- OUTSIDE RECORDS SUMMARY | 2025-03-16 07:52 | XMS_ITS | Encounter Summary ---
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 Name Role Phone Unavailable Primary Care Provider Unavailabl e Encounter Details Date Type Department Care Team (Latest Contact Info) Description 03/04/2019 Abstract [facility] CONVERSIONS Dental, Provider, DDS Social History Tobacco Use Types Packs/Day Years Used Date Smoking Tobacco: Never Assessed Comments Unknown Sex and Gender Information Value Date Recorded Sex Assigned at Female 07/21/2022 10:38 AM EDT Legal Sex Female 10:38 AM EDT Gender Identity Female 07/21/2022 10:38 AM EDT Sexual Orientation Straight 12/29/2022 8: 13 AM EDT documented as of this encounter Plan of Treatment Upcoming Encounters Date Type Department Care Team (Late st Contact Info) Description 03/28/2025 10:00 AM EDT Office Visit [facility] [address] [place] [address] Jordan Buckley documented as of this encounter Visit Diagnoses Not on filedocumented in this encounter
[2025-03-16 07:56] VITALS: BP 137/59; PULSE 81; O2SAT 97; BMI 25.4
[2025-03-16 09:05] VITALS: BP 175/95; PULSE 85
== END 2025-03-16 09:09 | disposition home or self-care (01) ==
LOC: HO.HGI 07:49
PROVIDERS: PCP Internal Medicine; Visit Provider Nurse Practitioner Family
DX: R74.01 Elevation of levels of liver transaminase levels (principal); R10.13 Epigastric pain; I49.9 Cardiac arrhythmia, unspecified
CPT/HCPCS: 99205

== ENCOUNTER 2025-03-16 09:08 | Emergency (ER) | payer OTHER, SELFPAY ==
[2025-03-16] VITALS (8 sets, daily range): BP systolic 141–166; BP diastolic 64–74; PULSE 63–73; RESP 12–20; TEMP 36.6–36.9; O2SAT 99–100; BMI 25.4
--- NOTE | 2025-03-16 | ECG_ITS ---
Test Reason : irregular HR Blood Pressure : */* mmHG Vent. Rate : 67 BPM Atrial Rate : 67 BPM P-R Int : 196 ms QRS Dur : 84 ms QT Int : 454 ms P-R-T Axes : 30 8 4 degrees QTcB Int : 479 ms Sinus rhythm with occasional Premature ventricular complexes Otherwise normal ECG No previous ECGs available Referred By: Generic ED Physician Electronically Signed By: SHON HERNANDEZ
--- NOTE | ~2025-03-16 | XR_ITS ---
EXAMINATION: XR CHEST CLINICAL INFORMATION: dizziness COMPARISON: November 12, 2021 TECHNIQUE: Frontal view of the chest was obtained. FINDINGS: Bibasilar linear atelectasis present on prior examination has resolved. The lungs appear well aerated. The heart size is within normal limits. Mediastinal and hilar structures are unremarkable. AC joint arthropathy is greater on the right than the left. XR/XR chest 1V IMPRESSION: No acute disease. Bilateral mild AC joint arthropathy, greater on the right. Electronically signed by: Rom Rose MD 03/16/2025 10:15 AM EDT
--- NOTE | 2025-03-16 09:37 | ED.DIZZY ---
HPI - Dizziness General Chief Complaint: Dizziness Stated Complaint: high bp, light head, irregular heartbeat Time Seen by Provider: 03/16/25 09:28 Source: patient Mode of arrival: ambulatory Limitations: no limitations History of Present Illness ED Provider: DR. Cabezas HPI Narrative: 74-year-old female came in from GI office for further evaluation of dizziness. Patient transported from Dr. Rivero's office to the ED for further evaluation of dizziness and what thought to be irregular heartbeats. patient had follow-up office visit while had physical exam with the nurse practitioner felt regular heartbeats, patient then had some lightheadedness but complained of no chest pain or shortness of breath patient was sent to the ED for a concern of irregular heartbeat. Patient in the emergency department is asymptomatic, no lightheadedness, no dizziness, no palpitation, initial EKG shows normal sinus rhythm with occasional PVC. Patient drinks 2-3 cup of coffee a day, nonsmoker, no recent travel, no lower extremity swelling or tenderness. Patient has been eating and drinking normally, no nausea, no vomiting. Related Data Home Medications ?Medication ?Instructions ?Recorded ?Confirmed [id number] 333 mg-133 2 tab PO DAILY 12/07/20 03/16/25 mg-8.3 mg tablet multivitamin 1 tab PO DAILY 12/07/20 03/16/25 cholecalciferol (vitamin D3) 25 25 mcg PO DAILY 02/12/21 03/16/25 mcg (1,000 unit) capsule (Vitamin D3) multivitamin with minerals 1 tab PO DAILY 12/29/23 03/16/25 (Hair,Skin and Nails tablet) omega-3 fatty acids 1,000 mg 1,000 mg PO DAILY 12/29/23 03/16/25 capsule aspirin 81 mg tablet,delayed 81 mg PO DAILY 01/03/25 03/16/25 release (Adult Low Dose Aspirin) magnesium tab PO 01/03/25 03/16/25 Previous Rx's ?Medication ?Instructions ?Recorded omeprazole 40 mg capsule,delayed 40 mg PO DAILY #90 caps 03/16/25 release Allergies Allergy/AdvReac Type Severity Reaction Status Date / Time amoxicillin (AMOXICILLIN) Allergy Severe HIVES Verified 03/16/25 09:28 Review of Systems Review of Systems: All other systems are reviewed and are negative Constitutional: Reports as per HPI and Reports no additional constitutional complaints Eyes: Reports as per HPI and Reports no additional eye complaints Reports system reviewed and no additional complaints, except as documented Cardiovascular: Reports as per HPI and Reports no additional cardiovascular complaints Respiratory: Reports as per HPI and Reports no additional respiratory complaints Gastrointestinal: Reports as per HPI and Reports no additional gastrointestinal complaints Genitourinary: Reports no additional female genitourinary complaints Musculoskeletal: Reports no additional musculoskeletal complaints Skin/Breast: Reports system reviewed and no additional complaints, except as docu Psychiatric: Reports no additional psychiatric complaints Endocrine: Reports no additional endocrine complaints Hematologic/Lymphatic: Reports no additional hematologic/lymphatic complaints Allergic/Immunologic: Reports no additional allergic/immunologic complaints Reports system reviewed and no additional complaints, except as documented and Reports Abnormal speech present [facility] Past Medical History Medical History Transaminitis Osteopenia of left femoral neck Impaired fasting glucose Ulcer of antrum of stomach Esophageal dysmotility Achalasia of esophagus Heartburn symptom Epigastric pain History of cholelithiasis Cyst of left kidney History of melanoma Biliary colic Polymyalgia rheumatica Mixed dyslipidemia Primary localized osteoarthrosis of multiple sites Fibromyalgia Melanoma in situ of right lower extremity Surgical History History of laparoscopic cholecystectomy H/O colonoscopy H/O melanoma excision History of cataract surgery History of tonsillectomy H/O hysterectomy with unilateral oophorectomy Family History Family History Father Acute leukemia SLE (systemic lupus erythematosus) Lymphoma Mother Colon cancer Maternal Aunt Breast cancer Social History Social History Household Members Other:: alone Housing: House Are you a primary manager urgent care to a significant other at home: No Do you presently have visiting nurse or other home services: No Alcohol intake: current Alcohol intake frequency: 0-2 drinks per day Alcohol type: wine Patient Tobacco Use Status: Never used Tobacco Smoked in Last 30 Days: No e-Cigarette/Vaping Use: Never Used Second Hand Smoke Exposure: No Use of substances other than those prescribed or required for medical reasons: No Advance Directives: Yes Advance Directives on File: Yes Advance Directives Date on File: 04/15/25 Do you have a plan to hurt others: No Plan Current occupational 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 Blood pressure elevated. Heart rate normal. Respiratory rate normal. Temperature normal. Oxygen saturation normal. Appearance: Alert. Oriented X3. No acute distress. Head: Normal external exam. Normocephalic. Atraumatic. No Canales signs noted. No raccoon eyes noted Eyes: PERRLA. EOMI. Conjunctiva and sclera normal. Eyelids normal. ENT: TM's Normal. Pharynx normal. Uvula midline. Moist mucous membranes. No trismus noted. No drooling noted. No muffled voice noted. Neck: Normal inspection. Neck supple. FROM. No adenopathy. Thyroid Normal. No meningeal signs. No neck mass noted. CVS: Normal heart rate and rhythm. Heart sound normal. No murmurs noted. Pulses normal throughout. Respiratory: No respiratory distress. Painless inspiration. Breath sounds normal. No wheezes/rales/rhonchi noted. Chest nontender. No accessory muscle usage noted or decreased air movement noted. Abdomen: Soft and nontender. Bowel sounds normal in all 4 quadrants. No distention noted. No organomegaly noted. No visible injury noted. Back: No CVA tenderness. Full range of motion noted. Skin: Skin warm and dry. Normal skin color. Normal skin turgor. No rashes/lesions/lacerations noted. Extremities: No lower extremity edema. Extremities exhibit normal range of motion. Extremities nontender. Neuro: Oriented X 3. Cranial nerve exam: II-XII are grossly intact No motor deficit. No sensory deficit. Reflexes normal. Course Reevaluation(s) Reevaluation #1: sent from GI office for further evaluation of irregular heartbeat, labs are unremarkable, patient has no symptoms otherwise, patient is already scheduled to see a patient safety attendant on 04/20. unremarkable physical exam, VSS, EKG is consistent with occasional PVCs and patient is asymptomatic from that. Will reassure and discharge. Time: 12:42 Medical Decision Making Differential Diagnosis Differential Diagnoses: The differential diagnosis associated with the presentation includes ( Dysrhythmia, AFib, PVCs, ventricular dysrhythmia, ACS, CHF, electrolyte derangement, severe anemia.) Admission/Observation Consideration of admission/observation: Escalation of care including admission/observation considered Lab Data MDM Lab Attestation statement: I reviewed the patient's lab results. 03/16/25 09:48 03/16/25 09:48 Labs: Lab Results 03/16/25 03/16/25 Range/Units 09:48 10:51 WBC 8.3 (4.8-10.8) X10*3/uL RBC 4.68 (4.20-5.50) X10*6/uL Hgb 13.8 (12.0-16.0) g/dl Hct 41.8 (37.0-47.0) % MCV 89.3 (80.0-98.0) fL MCH 29.5 (27.0-33.0) pg MCHC 33.0 (31.0-35.0) g/dl RDW 13.9 (11.0-16.0) % Plt Count 283 D (160-400) X10*3/uL MPV 11.5 (9.4-12.3) fL Immature Gran % (Auto) 0.1 (0.0-0.4) % Neut % (Auto) 63.5 (45-73) % Lymph % (Auto) 24.9 (20-40) % Dillon % (Auto) 6.3 (2-11) % Eos % (Auto) 4.0 (0-4) % Baso % (Auto) 1.2 (0-2) % Lymph # (Auto) 2.1 (1.2-4.9) X10*3/uL Dillon # (Auto) 0.5 (0.1-1.2) X10*3/uL Eos # (Auto) 0.3 (0.0-0.4) X10*3/uL Baso # (Auto) 0.1 (0.0-0.2) X10*3/uL Abs Immat Gran (auto) 0.01 (0.00-0.03) X10*3/uL Absolute Neuts (auto) 5.3 (2.0-8.3) x10*3/uL Absolute Nucleated RBC 0.000 (0.0-0.012) X10*3/uL Nucleated RBC % (auto) 0.0 (0.0-0.2) /100WBC Sodium 141 (135-145) mmol/L Potassium 4.3 (3.3-5.1) mmol/L Chloride 109 H (96-108) mmol/L Carbon Dioxide 26 (22-29) mmol/L Anion Gap 10 L (12-20) BUN 18 H (9-16) mg/dL Creatinine 0.71 (0.5-1.4) mg/dL Estim Creat Clear Calc 65.5 Estimated GFR > 60 Random Glucose 102 (60-115) mg/dL Calcium 9.3 D (8.4-10.2) mg/dL Total Bilirubin 0.5 (0.0-1.0) mg/dL Direct Bilirubin 0.2 (0.0-0.5) mg/dL AST 21 (5-31) U/L ALT 20 (0-31) U/L Alkaline Phosphatase 68 (39-117) U/L Troponin I High Sens 2.9 (<3.5-17.0) ng/L B-Natriuretic Peptide 137 H (<100) pg/mL Total Protein 6.8 (6.5-8.0) g/dL Albumin 4.5 (3.5-5.0) g/dL Lipase 18 (8-78) U/L Urine Color Yellow Urine Appearance Clear Urine pH 7.0 (5.0-9.0) Ur Specific Marceline <= 1.005 (1.005-1.025) Urine Protein Negative (Neg-Trace) mg/dL Urine Glucose (UA) Negative (Negative) mg/dL Urine Ketones Negative (Negative) mg/dL Urine Blood Negative (Negative) Urine Nitrite Negative (Negative) Ur Leukocyte Esterase Negative (Negative) Independent Interpretation I performed an independent interpretation of an: EKG ( Normal sinus rhythm at 67 beats per minutes with occasional PVCs, otherwise unremarkable EKG.) and Plain X-Ray ( Chest:No acute disease. Bilateral mild AC joint arthropathy, greater on the right.) Radiology Impression Discussion of test interpretation with radiology: I have reviewed the radiologist's reading. Discharge Plan Discharge Clinical Impression: Asymptomatic PVCs Patient Disposition: Home, Self-Care Instructions: Premature Ventricular Contractions (ED) Additional Instructions: follow-up with Dr. Walker ( patient safety attendant ) as scheduled on 04/19. Prescriptions: No Action cholecalciferol (vitamin D3) [Vitamin D3] 25 mcg (1,000 unit) Capsule 25 mcg PO DAILY [id number]-[id number] 333-133-8.3 mg tablet 2 tab PO DAILY multivitamin Tablet 1 tab PO DAILY Hair,Skin and Nails Tablet 1 tab PO DAILY omega-3 fatty acids 1,000 mg capsule 1,000 mg PO DAILY magnesium Tablet PO Rx Instructions: 400mg po qd aspirin [Adult Low Dose Aspirin] 81 mg tablet,delayed release (DR/EC) 81 mg PO DAILY omeprazole 40 mg capsule,delayed release(DR/EC) 40 mg PO DAILY Qty: 90 1RF Rx Instructions: Take one tablet daily. Best taken 30 minutes before meal Referrals: Анна Bhatt MD [Primary Care Provider, Internal Medicine] Print Language: Frisian
--- NOTE | 2025-03-16 09:42 | PC.NURSE ---
74F presents to ED from a GI follow-up appoint d/t concerns of irregular HR, elevated BP and dizziness since this appointment today. Pt also says upper GI pain that radiated to neck and jaw in December/January, was concerned for heart attack but was not seen. Denies any pain at this time. RR even and unlabored, calm and cooperative. A+Ox4. Pt had a little trouble getting up, sts she sometimes uses a cane to ambulate.
[2025-03-16 10:01] LABS: MANUAL DIFF FLAG NO
[2025-03-16 10:02] LABS: Basophils Absolute Auto 0.1 X10*3/uL (0.0-0.2); Basophils Percent Auto 1.2 % (0-2); Eosinophils Absolute Auto 0.3 X10*3/uL (0.0-0.4); Hematocrit 41.8 % (37.0-47.0); Hemoglobin 13.8 g/dl (12.0-16.0); Imm Gran Abs Auto 0.01 X10*3/uL (0.00-0.03); Imm Gran Pct Auto 0.1 % (0.0-0.4); Lymphocytes Absolute Auto 2.1 X10*3/uL (1.2-4.9); Lymphocytes Percent Auto 24.9 % (20-40); Mean Corpuscular Hemoglobin 29.5 pg (27.0-33.0); Mean Corpuscular Volume 89.3 fL (80.0-98.0); Mean Platelet Volume 11.5 fL (9.4-12.3); Monocytes Absolute Auto 0.5 X10*3/uL (0.1-1.2); Monocytes Percent Auto 6.3 % (2-11); Neutrophils Absolute Auto 5.3 x10*3/uL (2.0-8.3); Neutrophils Percent Auto 63.5 % (45-73); Platelet Count 283 X10*3/uL (160-400); Red Blood Count 4.68 X10*6/uL (4.20-5.50); Red Cell Distribution Width 13.9 % (11.0-16.0); White Blood Count 8.3 X10*3/uL (4.8-10.8)
[2025-03-16 10:17] LABS: Alanine Aminotransferase 20 U/L (0-31); Albumin Level 4.5 g/dL (3.5-5.0); Alkaline Phosphatase 68 U/L (39-117); Anion Gap 10 (12-20); Aspartate Amino Transferase 21 U/L (5-31); Bilirubin Direct 0.2 mg/dL (0.0-0.5); Bilirubin Total 0.5 mg/dL (0.0-1.0); Blood Urea Nitrogen 18 mg/dL (9-16); Calcium 9.3 mg/dL (8.4-10.2); Carbon Dioxide 26 mmol/L (22-29); Chloride 109 mmol/L (96-108); Creatinine Clr Calc Pharmacy 65.5; Estimated Glomerular Filt Rate > 60; Glucose Random 102 mg/dL (60-115); Lipase 18 U/L (8-78); Potassium 4.3 mmol/L (3.3-5.1); Sodium 141 mmol/L (135-145); Total Protein 6.8 g/dL (6.5-8.0)
[2025-03-16 10:23] LABS: B Type Natriuretic Peptide 137 pg/mL (<100)
[2025-03-16 10:24] LABS: Troponin-I High Sensitivity 2.9 ng/L (<3.5-17.0)
[2025-03-16 11:01] LABS: Appearance Urine Clear; Color Urine Yellow; Glucose Urine UA Negative (Negative); Leukocyte Esterase Urine Negative (Negative); Nitrite Urine Negative (Negative); Specific Gravity - Urine <= 1.005 (1.005-1.025); Urine Blood Negative (Negative); Urine Ketones Negative (Negative); Urine Protein Negative (Neg-Trace)
== END 2025-03-16 13:21 | disposition home or self-care (01) ==
PROVIDERS: Emergency Provider Emergency Medicine; PCP Internal Medicine
DX: I49.9 Cardiac arrhythmia, unspecified (principal); R42 Dizziness and giddiness; I49.3 Ventricular premature depolarization; M19.011 Primary osteoarthritis, right shoulder; Z79.899 Other long term (current) drug therapy
CPT/HCPCS: 36415; 71045; 80048; 80076; 81003; 83690; 83880; 84484; 85025; 93005; 99283; 99285

== ENCOUNTER → 2025-03-16 09:15 | Outpatient (BNV) | payer OTHER, SELFPAY | PROVIDERS: Emergency Provider Emergency Medicine; PCP Internal Medicine; Visit Provider Internal Medicine | DX: I49.3 Ventricular premature depolarization (principal) | CPT/HCPCS: 93010 ==

== ENCOUNTER → 2025-03-16 09:37 | Outpatient (BNV) | payer OTHER, SELFPAY | PROVIDERS: Emergency Provider Emergency Medicine; PCP Internal Medicine; Visit Provider Radiology Diagnostic Radiology | DX: R42 Dizziness and giddiness (principal) | CPT/HCPCS: 71045 ==

== ENCOUNTER 2025-04-07 08:46 | Outpatient (REF) | payer OTHER, SELFPAY ==
--- OUTSIDE RECORDS SUMMARY | 2025-04-07 08:50 | XMS_ITS | Encounter Summary ---
Author Organization [employer] Address [address] [facility] [address] [place] [address] Care Team Providers Care Reinforcement Maker Name Role Phone Unavailable Primary Care Provider Unavailabl e Encounter Details Date Type Department Care Team (Latest Contact Info) Description 03/04/2019 Abstract [facility] Dental, Provider, DDS Social History Tobacco [...] Care Team (Late st Contact Info) Description 10/02/2025 2:00 PM EST Office Visit [facility] [address] [place] [address] Jordan Buckley documented as of this encounter Visit Diagnoses Not on filedocumented in this encounter
[2025-04-07 10:23] LABS: INTERNATIONAL NORM RATIO 0.9 (0.9-1.1); Prothrombin Time 10.6 SEC (10.9-12.4)
[2025-04-07 11:00] LABS: Alanine Aminotransferase 20 U/L (0-31); Albumin Level 4.6 g/dL (3.5-5.0); Alkaline Phosphatase 65 U/L (39-117); Anion Gap 12 (12-20); Aspartate Amino Transferase 24 U/L (5-31); Blood Urea Nitrogen 7 mg/dL (9-16); Calcium 9.5 mg/dL (8.4-10.2); Carbon Dioxide 26 mmol/L (22-29); Chloride 109 mmol/L (96-108); Estimated Glomerular Filt Rate > 60; Iron 112 mcg/dL (30-160); Lipase 18 U/L (8-78); Percent Iron Saturation 36 % (15-50); Potassium 4.0 mmol/L (3.3-5.1); Sodium 143 mmol/L (135-145); Total Iron Binding Capacity 310 mcg/dL (228-428); Total Protein 7.0 g/dL (6.5-8.0); Unsaturated Iron Binding 198 ug/dL
[2025-04-07 11:10] LABS: Hepatitis A Antibody IgM 0.16 Index (0-0.79); ~Hepatitis A Antibody IgM Nonreactive (Nonreactive)
[2025-04-07 11:15] LABS: HBS Num1 0.00 mIU/mL (0-7.99); HBc Num1 0.03 S/CO (0.00-0.79); HBsAGNum1 0.35 S/CO (0.00-0.99); Hepatitis B Surface Antigen Negative (Negative); ~HepC Num1 0.08 S/CO (0.00-0.79); ~Hepatitis B Surface Antibody NONREACTIVE (Nonreactive); ~Hepatitis C Antibody Nonreactive (Nonreactive)
[2025-04-12 09:28] LABS: Anti Nuclear Antibody Screen NEGATIVE (NEGATIVE)
== END 2025-04-07 08:47 | disposition home or self-care (01) ==
LOC: HO.HMGCLDS 08:46
PROVIDERS: PCP Internal Medicine; Visit Provider Nurse Practitioner Family
DX: Z11.59 Encounter for screening for other viral diseases (principal); Z01.84 Encounter for antibody response examination; R74.01 Elevation of levels of liver transaminase levels
CPT/HCPCS: 36415; 80053; 82784; 83540; 83690; 85610; 86015; 86038; 86140; 86381; 86704; 86706; 86709; 86803; 87340

== ENCOUNTER 2025-04-20 12:43 | Outpatient (AMB) | payer OTHER, SELFPAY ==
--- OUTSIDE RECORDS SUMMARY | 2025-04-20 12:53 | XMS_ITS | Encounter Summary ---
Author Organization [employer] Address [address] [facility] [address] [place] [address] Care Team Providers Care Tile Mason Name Role Phone Unavailable Primary Care Provider Unavailabl e Encounter Details Date Type Department Care Team (Latest Contact Info) Description 03/04/2019 Abstract [facility] Dental, Provider, DDS Social History Tobacco [...] Description 10/02/2025 2:00 PM EST Office Visit [facility] [address] [place] [address] Jordan Buckley documented as of this encounter Visit Diagnoses Not on filedocumented in this encounter
--- NOTE | 2025-04-20 13:00 | MHC.OFFVIS ---
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 She is a pleasant 74-year-old female with prior history of esophageal dysmotility and recently diagnose acid reflux disease. She has no history of hypertension, hyperlipidemia, diabetes which is currently being treated. She is in good functional status except for some limitations due to her right knee arthritis. However in November and December she had 2 separate episodes where she felt severe lower retrosternal chest discomfort radiating to her back and then radiating to her jaw which was quite severe. However interestingly she had not seek any medical care and then said she was walking around and drinking water and eventually the symptoms subsided and 15 minutes. She subsequently has been told that she should have presented to the emergency room although since then she has been active and has had no recurrent exertional discomfort. Workup since then has revealed acid reflux disease and she is been advised to undergo upper endoscopy. However because of chest pain syndrome in her age she was referred for further cardiology evaluation. Incidentally she was noted to have irregular pulse during the GI visit and was noted to have PVCs and was referred to the emergency room. Workup in the emergency room was normal and she comes here. She continues to have on EKG today PVCs. She has no symptoms of palpitations or skipped heartbeats. Denies any lightheadedness, syncope. No heart failure symptoms. No strong family history. [facility] Medical History Irregular heart rhythm Transaminitis Osteopenia of left femoral neck Impaired fasting glucose Ulcer of antrum of stomach Esophageal dysmotility Achalasia of esophagus Heartburn symptom Epigastric pain History of cholelithiasis Cyst of left kidney History of melanoma Biliary colic Polymyalgia rheumatica Mixed dyslipidemia Primary localized osteoarthrosis of multiple sites Fibromyalgia Melanoma in situ of right lower extremity Surgical History History of laparoscopic cholecystectomy H/O colonoscopy H/O melanoma excision History of cataract surgery History of tonsillectomy H/O hysterectomy with unilateral oophorectomy Family History Father Acute leukemia SLE (systemic lupus erythematosus) Lymphoma Mother Colon cancer Maternal Aunt Breast cancer Social History Household Members Other:: alone Housing: House Are you a primary congregational care pastor to a significant other at home: No Do you presently have visiting nurse or other home services: No Alcohol intake: current Alcohol intake frequency: 0-2 drinks per day Alcohol type: wine Patient Tobacco Use Status: Never used Tobacco e-Cigarette/Vaping Use: Never Used Second Hand Smoke Exposure: No Advance Directives Date on File: 01/03/25 Current occupational 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[employer] Cognitive needs: No Hearing needs: No Vision needs: Yes Review of Systems Const Denies chills, Denies daytime sleepiness, Denies fatigue, Denies fever(s), Denies frequent falls, Denies poor appetite, Denies snoring, Denies stops breathing during sleep, Denies weakness, Denies weight gain and Denies weight loss Eyes Denies loss of vision ENT Denies dizziness and Denies hearing loss Card Reports chest pain, Denies claudication, Denies leg edema, Denies lightheadedness, Denies palpitations, Denies dyspnea, Denies dyspnea on exertion and Denies orthopnea Resp Denies cough, Denies excessive phlegm production, Denies dyspnea, Denies dyspnea on exertion, Denies snoring and Denies wheezing GI Denies abdominal pain, Denies hematochezia, Denies change in bowel habits, Denies nausea and Denies vomiting Denies urinary frequency and Denies dysuria Musc Denies arthralgias, Denies muscle weakness, Denies numbness and Denies other (frequent falls) Skin/Breast Denies nail changes and Denies rash Neuro Denies Abnormal speech present, Denies dizziness, Denies frequent falls, Denies loss of vision, Denies memory loss, Denies numbness and Denies weakness Psych Denies depression and Denies memory loss Endo Denies fatigue and Denies palpitations Neal/Lymph Reports easy bruising and Reports other (anemia) Aller/Immun Denies wheezing Physical Exam Vital Signs: Last Vital Signs Pulse 82 04/20/25 13:05 BP 120/80 04/20/25 13:05 BMI result Body Mass Index 25.2 Const General: cooperative, comfortable, no acute distress, well developed, alert, awake, Physically active and well groomed Nutritional Appearance: average body habitus and well nourished Orientation/consciousness: patient oriented x3 Limitations: no limitations HEENT Head: Yes normocephalic and Yes atraumatic Neck Neck: Yes trachea midline, Yes supple and Yes no JVD Resp Effort & Inspection: normal respiratory effort Auscultation: clear to auscultation bilaterally Cardio Jugular venous distension: no JVD Palpation: normal PMI Rate: regular rate Rhythm: abnormal rhythm with ectopic beats Heart sounds: S1 normal heart sound present, S2 normal heart sound present, no click, no gallops and no murmurs GI Auscultation: normal bowel sounds Skin General skin exam: no rashes or lesions noted Neuro General: patient oriented x3 and no focal motor deficits Speech: No Abnormal speech present Extrem General: Yes no clubbing, cyanosis or edema Psych Appearance: grossly normal Office Procedures EKG Details: EKG shows normal sinus rhythm with occasional PVCs, appear to be unifocal with fixed inter coupling [id number], Complete Assessment & Plan Assessment & Plan (1) Atypical chest pain: Code(s): R07.89 - Other chest pain Category: Medical Plan: Patient with atypical chest pain syndrome most suggestive of esophageal spasm although given her age myocardial ischemia is likely. I would suggest her to undergo a stress echocardiogram to further assess for the same. If this is within normal limits I think with should pursue GI workup as soon as possible. (2) PVCs (premature ventricular contractions): Code(s): I49.3 - Ventricular premature depolarization Category: Medical Plan: Patient noted to have incidental PVCs. Has no associated symptoms with it. Need to evaluate for underlying structural heart disease. Will undergo stress echocardiogram as above and also an echocardiogram to assess for cardiac structure and function. This was discussed with her in details. Also suggest a 7 day Holter monitor to assess for frequency of PVCs that may determine treatment. Pathophysiology of PVCs were discussed in details. Avoidance of stimulants was discussed. No other pharmacotherapy is recommended at this point in time. (3) Preoperative cardiovascular examination: Code(s): Z01.810 - Encounter for preprocedural cardiovascular examination Plan: Preoperative cardiovascular risk stratification for GI procedure and patient was having active chest pain syndrome although likelihood of myocardial ischemia is low this needs to be ruled out. If her stress echocardiogram is within normal limits I would suggest her to undergo upper GI workup with low risk for perioperative cardiovascular morbidity mortality. She understands and agrees. Will follow up in the clinic in 6 weeks time, sooner p.r.n.. Thank you for allowing me to partake in her care Coding Level of Care Code New Pt Level 4 (24809) Complex EM visit Add On G2211 Diagnoses Atypical chest pain R07.89 PVCs (premature ventricular contractions) I49.3 Preoperative cardiovascular examination Z01.810 CPT Codes EKG - CPT: 46077-[id number], Complete ([id number])
[2025-04-20 13:05] VITALS: BP 120/80; PULSE 82; BMI 25.2
== END 2025-04-20 13:44 | disposition home or self-care (01) ==
LOC: HO.HCS 12:44
PROVIDERS: PCP Internal Medicine; Visit Provider Internal Medicine Cardiovascular Disease
DX: R07.89 Other chest pain (principal); I49.3 Ventricular premature depolarization; Z01.810 Encounter for preprocedural cardiovascular examination
CPT/HCPCS: 93010; 99204; G2211

== ENCOUNTER → 2025-04-20 12:43 | Outpatient (BNVA) | payer OTHER, SELFPAY | PROVIDERS: PCP Internal Medicine; Visit Provider Internal Medicine Cardiovascular Disease | DX: Z01.810 Encounter for preprocedural cardiovascular examination (principal); I49.3 Ventricular premature depolarization; R07.89 Other chest pain | CPT/HCPCS: 93005 ==

== ENCOUNTER 2025-05-23 10:56 | Outpatient (REF) | payer OTHER, SELFPAY ==
--- NOTE | ~2025-05-23 | MM_ITS ---
EXAMINATION: MM SCREENING DIGITAL BREAST TOMOSYNTHESIS, BILATERAL CLINICAL INFORMATION: Screening. Asymptomatic. COMPARISON: Mammography: Comparison is made with available priors TECHNIQUE: Digital breast mammography with tomosynthesis is performed in both the craniocaudal and mediolateral oblique views along with computer-aided detection (CAD). FINDINGS: There are scattered areas of fibroglandular density (ACR BI-RADS breast composition Category b). Left marker clip. There are no significant masses, abnormal calcifications, or other abnormalities. MM/MM tomosynthesis screening BI IMPRESSION: No mammographic evidence of malignancy. ASSESSMENT: BI-RADS BI-RADS 2 - Benign Findings RECOMMENDATION: Routine annual mammography screening. 1 year F/U This examination should not preclude the clinical evaluation of a suspicious palpable abnormality. This patient's information was entered into a reminder system with a target due date for their next mammogram. Electronically signed by: Lisa Ann DO 05/23/2025 12:05 PM EDT
--- OUTSIDE RECORDS SUMMARY | 2025-05-23 12:32 | XMS_ITS | Clinical Summary ---
Author Organization [employer] Address [address] [place] [address] 7 [place] [address] Care Team Providers Care Patient Financial Specialist Name Role Phone Unavailable Primary Care Provider [...] Encounters Date Type Department Care Team Description 03/28/2025 10:00 AM EDT Office Visit [facility] ADULT DENTAL [address] [place] [address] Jordan Buckley Dental calculus (Primary Dx) 03/07/2025 9:30 AM EDT Office Visit [facility] ADULT DENTAL [address] [place] [address] Mary Figueroa DMD 02/28/2025 Travel from Last 3 Months Social History [...] Sign Reading Time Taken Comments Blood Pressure 128/68 03/28/2025 9:49 AM EDT Pulse 65 03/28/2025 9:49 AM EDT Temperature - - Respiratory Rate - - Oxygen Saturation - - Inhaled Oxygen Concentration - - Weight - - Height - - Body Mass Index - - Plan of Treatment Upcoming Encounters Date Type Department Care Team (Late st Contact Info) Description 10/02/2025 2:00 PM EST Office Visit [facility] ADULT DENTAL [address] [place] [address] Jordan Buckley Health Maintenance Due Date Last Done Comments Depression Screening 1950 SDOH Screening 1950 Alcohol/Substance Use Screening 1960 Hepatitis C Screening 1966 Zoster Vaccines (2 of 3) 06/04/2014 04/09/2014 RSV Patients and Patients Aged 60 years or older (1 - 1-dose 75+ series) 2023 COVID-19 Vaccine ( season) 2024 09/04/2022, 09/02/2021, 02/11/2021, Additional history exists Dental Oral Exam 01/13/2025 07/14/2024, 08/2024, 07/02/2023, Additional history exists Influenza Vaccine (#1) 2025 , 08/03/2019, 07/16/2019, Additional history exists Dental Prophylaxis 09/29/2025 03/28/2025, 1 , 01/01/2024, Additional history exists Tobacco Screening 03/28/2026 03/28/2025 Dental X-Ray: Bitewings 03/29/2026 03/28/20, 12/02/2024, 01/01/2024, Additional history exists Dental X-Ray: Full Mouth 01/01/2027 01/01/2024 DTaP/Tdap/Td [...] patient's age to complete this topic Meningococcal B Vaccine Aged Out No l onger eligible based on patient's age to complete [...] Procedure Name Priority Date/Time Associated Diagnosis Comments COMPREHENSIVE PERIODONTAL EVALUATION - NEW OR ESTABLISHED PATIENT Routine 03/28/2025 10:00 AM EDT CASE PRESENTATION, DETAILED AND EXTENSIVE TREATMENT PLANNING Routine 03/28/2025 10:00 AM EDT INTRAORAL - PERIAPICAL EACH ADDITIONAL RADIOGRAPHIC IMAGE Routine 03/28/2025 10:00 AM EDT INTRAORAL - PERIAPICAL FIRST RADIOGRAPHIC IMAGE Routine 03/28/2025 10:00 AM EDT ORAL HYGIENE INSTRUCTIONS Routine 2024 10:00 AM EDT BITEWINGS - 4 RADIOGRAPHIC IMAGES Routine 03/28/2025 10:00 AM EDT Full PROPHYLAXIS - ADULT Routine 025 10:00 AM EDT 3 CROWN - PORCELAIN/CERAMIC Routine 03/07/2025 9:30 AM EDT PERIODIC ORAL EVALUATION - ESTABLISHED PATIENT Routine 07/14/2024 11:00 AM EDT INTRAORAL - COMPLETE SERIES OF RADIOGRAPHIC IMAGES Routine 01/01/2024 1:00 PM EDT from Last 3 Months or Most Recently Relevant to Health Maintenance [facility]
--- OUTSIDE RECORDS SUMMARY | 2025-05-23 12:32 | XMS_ITS | Encounter Summary ---
Author Organization [employer] Address [address] [facility] [address] [place] [address] Care Team Providers Care Wax Blender Name Role Phone Unavailable Primary Care Provider Unavailabl e Encounter Details Date Type Department Care Team (Latest Contact Info) Description 03/04/2019 Abstract [facility] CONVERSIONS Dental, Provider, DDS Social History [...] Description 10/02/2025 2:00 PM EST Office Visit [facility] ADULT DENTAL [address] [place] [address] Jordan Buckley documented as of this encounter Visit Diagnoses Not on filedocumented in this encounter
--- OUTSIDE RECORDS SUMMARY | 2025-05-23 12:32 | XMS_ITS | Encounter Summary ---
Author Organization [employer] Address [address] [facility] [address] [place] [address] Care Team Providers Care Nut Grader Name Role Phone Unavailable Primary Care Provider Unavailabl e Encounter Details Date Type Department Care Team (Latest Contact Info) Description 01/02/2021 Abstract [facility] CONVERSIONS Dental, Provider, DDS Social History [...] Description 10/02/2025 2:00 PM EST Office Visit [facility] ADULT DENTAL [address] [place] [address] Jordan Buckley documented as of this encounter Visit Diagnoses Not on filedocumented in this encounter
--- OUTSIDE RECORDS SUMMARY | 2025-05-23 12:32 | XMS_ITS | Encounter Summary ---
Author Organization [employer] Address [address] [facility] [address] [place] [address] Care Team Providers Care Blueprint Assembler Name Role Phone Unavailable Primary Care Provider Unavailabl e Encounter Details Date Type Department Care Team (Latest Contact Info) Description 01/23/2022 Abstract [facility] CONVERSIONS Dental, Provider, DDS Social History [...] Description 10/02/2025 2:00 PM EST Office Visit [facility] ADULT DENTAL [address] [place] [address] Jordan Buckley documented as of this encounter Visit Diagnoses Not on filedocumented in this encounter
== END 2025-05-23 10:57 | disposition home or self-care (01) ==
LOC: HO.MAMMO 10:56
PROVIDERS: PCP Internal Medicine; Visit Provider Internal Medicine
DX: Z12.31 Encounter for screening mammogram for malignant neoplasm of breast (principal)
CPT/HCPCS: 77063; 77067

== ENCOUNTER → 2025-05-23 11:15 | Outpatient (BNV) | payer OTHER, SELFPAY | PROVIDERS: PCP Internal Medicine; Visit Provider Internal Medicine | DX: Z12.31 Encounter for screening mammogram for malignant neoplasm of breast (principal) | CPT/HCPCS: 77063; 77067 ==

== ENCOUNTER → 2025-06-02 07:48 | Outpatient (REF) | payer OTHER, SELFPAY ==
--- NOTE | 2025-06-02 07:51 | HM_ITS ---
* Total monitoring time 7 days. * Underlying rhythm is sinus with an average rate of 74/Min. * Supraventricular ectopy noted with a burden of 0.5%. 42 runs noted, longest 35 beats. Fastest 183/Min. * Ventricular ectopy noted with a burden of 0.8%. Rare couplets and isolated triplet. Two runs, longest 4 beats. * No significant pauses or high-grade AV blocks. * No patient markers or diary events. MTDD
--- NOTE | 2025-06-02 07:51 | CA_ITS ---
Transthoracic Echocardiogram Patient (Last, First, Middle): Ana Sears Ann Gender: Female Date of : 1950 Age: 74 Procedure Date: 06/02/2025 Procedure Type: Transthoracic Echocardiogram Location: OP Height: 170.18 cm Weight: 72.58 kg BSA: 1.84 m2 Heart Rate: 68 bpm BP: 122 / 65 mmHg Crop Quantitative Geneticist: Referring MD: Prieto Walker MD Yard Specialist: Prieto Walker MD Symptoms: I49.3 - Ventricular premature depolarization Study Quality: Adequate ECG Rhythm: Sinus Conclusions: - 1. Normal LV ejection fraction of 55-60% with mild LVH with impaired relaxation filling pattern 2. Mildly dilated left atrium 3. Moderate mitral annular calcification with normal cardiac valvular Dopplers 4. No gross pericardial effusion Findings Left Ventricle Normal left ventricular size and systolic function. There is mildly increased left ventricular wall thickness. The visually estimated ejection fraction is between 55-60%. Spectral Doppler is indicative of an impaired relaxation filling pattern. E/E prime ratio is between 8 and 15 consistent with indeterminate filling pressures. Right Ventricle Normal right ventricular cavity size and systolic function. Atria The left atrium is mildly dilated. There is no evidence of interatrial shunt. The right atrium is normal in size. Aortic Valve Normal aortic valve structure and function. There is no aortic valve stenosis. There is no aortic valve regurgitation. Mitral Valve There is mild anterior and moderate posterior mitral leaflet thickening. There is moderate mitral annular calcification. There is trace mitral valve regurgitation. There is no mitral valve stenosis. Pulmonic Valve The pulmonic valve is likely normal. Tricuspid Valve Normal tricuspid valve structure. Tricuspid regurgitation envelope is inadequate for calculation of right ventricular systolic pressure. Normal right atrial pressure. Great Vessels All visible segments of the aorta are normal in size. The pulmonary artery was not well visualized. Venous The inferior vena cava is normal in size and collapses greater than 50% with inspiration. Pericardium/Pleural There is no evidence of pericardial effusion. Prior Study Comparison No prior study available for comparison. Measurements 2D Linear Measurements IVSd: 1.23 0.6-0.9/0.6-1.0 cm LVIDd: 3.28 3.9-5.3/4.2-5.9 cm LVIDd Index: 1.78 2.4-3.2/2.2-3.1 cm/m2 LVIDs: 2.20 2.0-3.6 cm LVPWd: 1.22 0.7-1.1 cm LA Diam: 3.20 2.7-3.8/3.0-4.0 cm LAIDs Index: 1.74 1.5-2.3 cm/m2 LV Mass: 158.96 67-162/88-224 g LV Mass Index: 86.39 43-95/49-115 g/m2 LVOT Diam: 2.20 3.0+(-)1.3 cm 2D Systolic Function EF 4C: 61.80 >55% EF 2C: 54.30 >55% EF BiP: 58.10 >55% Mitral Valve MV VTI: 0.40 MV Pk Juan J: 1.02 MV Mn Juan J: 0.52 MV Pk Grad: 4.00 MV Mn Grad: 1.00 MV Pk E: 0.60 MV PK A: 0.97 MV Decel Time: 323.00 E/A: 0.60 E'Lateral: 6.09 E'Medial: 3.92 E/E' Med: 15.40 E/E' Lat: 9.90 PHT: 94.00 MVA PHT: 2.34 MVA Continuity: 1.99 Decel [place]: 1.87 Aortic Valve AoV Pk Juan J: 1.24 AoV Mn Juan J: 0.80 AoV VTI: 0.33 AoV Pk Grad: 6.00 Aov Mn Grad: 3.00 LU Cont.VTI: 2.41 LVOT LVOT Pk Juan J: 0.83 LVOT Mn Juan J: 0.56 LVOT VTI: 0.21 LVOT Pk Grad: 3.00 LVOT Mn Grad: 1.00 LVOT Diam: 2.20 LVOT Area: 3.80 Diastolic Function MV Pk E: 0.60 MV Pk A: 0.97 E/A: 0.60 E'Medial: 3.92 E/E' Med: 15.40 E' Laterial: 6.09 E/E' Lat: 9.90 Right Ventricle TAPSE (mm): 23.20 TVS' Juan J: 10.20 Tricuspid Valve TR Pk Juan J: 2.00 TR Pk Grad: 16.00 Great Vessels Aorta Sinus of Valsalva: 2.90 2.0-3.5 cm Ao Asc: 3.40 2.1-3.4 cm Pulmonary Valve PV Pk Juan J: 1.18 Peak PV Grad: 6.00 Updated in Other Vendor System with Status of Final Prieto Walker MD electronically signed on 06/03/2025 9:18:08 AM with status of Final
--- OUTSIDE RECORDS SUMMARY | 2025-06-02 07:52 | XMS_ITS | Clinical Summary ---
Author Organization [employer] Address [address] [place] [address] 7 [place] [address] Care Team Providers Care Tester Regulator Name Role Phone Unavailable Primary Care Provider [...] Description 03/28/2025 10:00 AM EDT Office Visit [facility] ADULT DENTAL [address] [place] [address] Jordan Buckley Dental calculus (Primary Dx) 03/07/2025 9:30 AM EDT Office Visit [facility] ADULT DENTAL [address] [place] [address] Mary Figueroa DMD from Last 3 Months Social History Tobacco [...] Description 10/02/2025 2:00 PM EST Office Visit [facility] ADULT DENTAL [address] [place] [address] Jordan Buckley Health Maintenance Due Date Last Done Comments Depression Screening 1950 SDOH Screening 1950 Alcohol/Substance Use Screening 1960 Hepatitis C Screening 1966 Zoster Vaccines (2 of 3) 06/04/2014 04/09/2014 RSV Patients and Patients Aged 60 years or older (1 - 1-dose 75+ series) 2023 Dental Oral Exam 01/13/2025 07/14/2024, 08/2024, 07/02/2023, Additional history exists COVID-19 Vaccine ( season) 2025 09/04/2022, 09/02/2021, 02/11/2021, Additional history exists Influenza Vaccine (#1) 2025 [...] Relevant to Health Maintenance [facility]
--- OUTSIDE RECORDS SUMMARY | 2025-06-02 07:52 | XMS_ITS | Encounter Summary ---
Author Organization [employer] Address [address] [facility] 7 [place] [address] Care Team Providers Care Outreach Team Member Name Role Phone Unavailable Primary Care Provider Unavailabl e Encounter Details Date Type Department Care Team (Latest Contact Info) Description 03/04/2019 Abstract [facility] CONVERSIONS Dental, Provider, DDS Social History Tobacco [...] Description 10/02/2025 2:00 PM EST Office Visit [facility] CH[facility] ADULT DENTAL [address] [place] [address] Jordan Buckley documented as of this encounter Visit Diagnoses Not on filedocumented in this encounter
--- OUTSIDE RECORDS SUMMARY | 2025-06-02 07:52 | XMS_ITS | Encounter Summary ---
Author Organization [employer] Address [address] [facility] 7 [place] [address] Care Team Providers Care Otorhinolaryngologist Name Role Phone Unavailable Primary Care Provider Unavailabl e Encounter Details Date Type Department Care Team (Latest Contact Info) Description 01/02/2021 Abstract [facility] CONVERSIONS Dental, Provider, DDS Social [...] Description 10/02/2025 2:00 PM EST Office Visit [facility] CHC ADULT DENTAL [address] [place] [address] Jordan Buckley documented as of this encounter Visit Diagnoses Not on filedocumented in this encounter
--- OUTSIDE RECORDS SUMMARY | 2025-06-02 07:52 | XMS_ITS | Encounter Summary ---
Author Organization [employer] Address [address] [facility] [address] [place] [address] Care Team Providers Care Guest Advisor Name Role Phone Unavailable Primary Care Provider Unavailabl e Encounter Details Date Type Department Care Team (Latest Contact Info) Description 01/23/2022 Abstract [facility] CONVERSIONS Dental, [...] Description 10/02/2025 2:00 PM EST Office Visit [facility] CHC ADULT DENTAL [address] [place] [address] Jordan Buckley documented as of this encounter Visit Diagnoses Not on filedocumented in this encounter
== END ==
LOC: HO.CARD 07:48
PROVIDERS: PCP Internal Medicine; Visit Provider Internal Medicine Cardiovascular Disease
DX: I49.3 Ventricular premature depolarization (principal)
CPT/HCPCS: 93242; 93306

== ENCOUNTER → 2025-06-02 07:51 | Outpatient (BNV) | payer OTHER, SELFPAY | PROVIDERS: PCP Internal Medicine; Visit Provider Internal Medicine Cardiovascular Disease | DX: I34.81 Nonrheumatic mitral (valve) annulus calcification (principal) | CPT/HCPCS: 93306 ==

== ENCOUNTER → 2025-06-05 10:45 | Outpatient (REF) | payer OTHER, SELFPAY ==
--- NOTE | 2025-06-05 11:33 | CA_ITS ---
Acquisition Time: 2025-06-05 11:33:46 Total Exercise Time: 00:05:22 Test Indications: CP, PVCS Medications: SEE H&P Protocol: MARGARET Max HR: 139 BPM 96% of Pred: 144 BPM Max BP: 160/80 mmHG Max Work Load: 5.1 METS Exercise stress test with exercise 5 mins 22 secs of Margaret Protocol, at reduced speed of 2.5 mph, achieving 86% MPHR, with reports of SOB, reported intermittent 7/10 mid chest pain correlating everytime with the PVCs, with isolated PACs, frequent PVCs and ventricular couplets, with normotensive response to exercise. Without any EKG changes meeting criteria for ischemia. In recovery, breathing returned to baseline and chest discomfort resolved. Echo images obtained by tech at rest and post peak exercise. Definity contrast utilized. Test reviewed with Dr. Fontenot. Referred By: Prieto Walker Electronically Signed By: Gerard Arenas
--- OUTSIDE RECORDS SUMMARY | 2025-06-05 14:02 | XMS_ITS | Encounter Summary ---
Author Organization [employer] Address [address] [facility] [address] [place] [address] Care Team Providers Care Brake Repairer Name Role Phone Unavailable Primary Care Provider Unavailabl e Encounter Details Date Type Department Care Team (Latest Contact Info) Description 03/04/2019 Abstract [facility] CONVERSIONS Dental, Provider, DDS Social History [...] Team (Late st Contact Info) Description 10/02/2025 2:15 PM EST Office Visit [facility] CHC ADULT DENTAL [address] [place] [address] Jordan Buckley documented as of this encounter Visit Diagnoses Not on filedocumented in this encounter
--- OUTSIDE RECORDS SUMMARY | 2025-06-05 14:02 | XMS_ITS | Encounter Summary ---
Author Organization [employer] Address [address] [facility] [address] [place] [address] Care Team Providers Care Associate Professor Of Pathology Name Role Phone Unavailable Primary Care Provider Unavailabl e Encounter Details Date Type Department Care Team (Latest Contact Info) Description 01/02/2021 Abstract [facility] CONVERSIONS Dental, Provider, DDS Social History [...] Description 10/02/2025 2:15 PM EST Office Visit [facility] CHC ADULT DENTAL [address] [place] [address] Jordan Buckley documented as of this encounter Visit Diagnoses Not on filedocumented in this encounter
--- OUTSIDE RECORDS SUMMARY | 2025-06-05 14:02 | XMS_ITS | Clinical Summary ---
Author Organization [employer] Address [address] [place] [address] 7 [place] [address] Care Team Providers Care Posting Specialist Name Role Phone Unavailable Primary Care [...] Description 03/28/2025 10:00 AM EDT Office Visit [facility] ADULT DENTAL [address] [place] [address] Jordan Buckley Dental calculus (Primary Dx) 03/07/2025 9:30 AM EDT Office Visit [facility] ADULT DENTAL [address] [place] [address] Mary Figueroa DMD from Last 3 Months [...] Description 10/02/2025 2:15 PM EST Office Visit [facility] ADULT DENTAL [address] [place] [address] Jordan Buckley Health Maintenance Due Date Last [...] Relevant to Health Maintenance [facility]
--- OUTSIDE RECORDS SUMMARY | 2025-06-05 14:02 | XMS_ITS | Encounter Summary ---
Author Organization [employer] Address [address] [facility] [address] [place] [address] Care Team Providers Care M48 M60 Armor Crewman Name Role Phone Unavailable Primary Care Provider Unavailabl e Encounter Details Date Type Department Care Team (Latest Contact Info) Description 01/23/2022 Abstract [facility] CONVERSIONS Dental, Provider, DDS Social History [...] Description 10/02/2025 2:15 PM EST Office Visit [facility] CHC ADULT DENTAL [address] [place] [address] Jordan Buckley documented as of this encounter Visit Diagnoses Not on filedocumented in this encounter
== END ==
LOC: HO.CARD 10:45
PROVIDERS: PCP Internal Medicine; Visit Provider Internal Medicine Cardiovascular Disease
DX: R07.9 Chest pain, unspecified (principal)
CPT/HCPCS: 93350; Q9957

== ENCOUNTER → 2025-06-05 11:33 | Outpatient (BNV) | payer OTHER, SELFPAY | PROVIDERS: PCP Internal Medicine | DX: I49.1 Atrial premature depolarization (principal); I49.3 Ventricular premature depolarization; R06.02 Shortness of breath; R07.89 Other chest pain | CPT/HCPCS: 93016; 93018; 93350; 93352 ==

== ENCOUNTER 2025-06-28 11:01 | Outpatient (REF) | payer OTHER, MEDICAID, SELFPAY ==
[2025-06-28 14:10] LABS: Cholesterol 204 mg/dL (<200); HDL Cholesterol 60 mg/dL (>40); Triglycerides 138 mg/dL (<150)
== END 2025-06-28 11:02 | disposition home or self-care (01) ==
LOC: HO.HMGCLDS 11:01
PROVIDERS: PCP Internal Medicine; Visit Provider Internal Medicine
DX: E78.2 Mixed hyperlipidemia (principal); R73.01 Impaired fasting glucose
CPT/HCPCS: 36415; 80061; 83036

== ENCOUNTER 2025-07-04 11:33 | Outpatient (AMB) | payer OTHER, SELFPAY ==
[2025-07-04 11:34] VITALS: BP 120/66; PULSE 84; BMI 25.3
--- NOTE | 2025-07-04 11:34 | MHC.OFFVIS ---
Vital Signs 07/04/25 11:34 Height 5 ft 7 in Weight 161 lb 13.109 oz BMI 25.3 BP 120/66 Blood Pressure Location Lt brachial Position Sitting Pulse 84 Pulse Source Pulse Oximeter Intake Visit Reasons: fu after stress/echo/holter Intake Note: F/u After Stress /Echo / Holter Shuffle Board Operator Required: No Accompanied by: Self / Same As Patient Allergies amoxicillin (AMOXICILLIN) Allergy (Severe, Verified 07/04/25 11:38) HIVES Medication List - Last Reconciled 07/04/25 by Prieto Walker MD [id number] mg 2 tabs PO DAILY cholecalciferol (vitamin D3) (Vitamin D3) 25 mcg PO DAILY magnesium 400mg po qd multivitamin 1 tab PO DAILY multivitamin with minerals (Hair,Skin and Nails tablet) 1 tab PO DAILY omega-3 fatty acids 1,000 mg PO DAILY omeprazole 40 mg PO DAILY HPI Comments Details: Ana comes for follow-up. Has occasional palpitations. She underwent a stress test which showed no evidence of ischemia at good workload for her. Echocardiogram showed normal LV ejection fraction but mildly increased LV wall thickness of unclear etiology. She has no history of hypertension. Holter monitor showed occasional PVCs but 2 runs of nonsustained VT at 4 beats with occasional PACs with short runs of SVT, longest lasting 35 beats at 183 beats per minute. She denies any sustained palpitations. No lightheadedness, syncope. No exertional chest pain or shortness of breath. No heart failure symptoms. [facility] Medical History Irregular heart rhythm Transaminitis Osteopenia of left femoral neck Impaired fasting glucose Ulcer of antrum of stomach Esophageal dysmotility Achalasia of esophagus Heartburn symptom Epigastric pain History of cholelithiasis Cyst of left kidney History of melanoma Biliary colic Polymyalgia rheumatica Mixed dyslipidemia Primary localized osteoarthrosis of multiple sites Fibromyalgia Melanoma in situ of right lower extremity Surgical History History of laparoscopic cholecystectomy H/O colonoscopy H/O melanoma excision History of cataract surgery History of tonsillectomy H/O hysterectomy with unilateral oophorectomy Family History Father Acute leukemia SLE (systemic lupus erythematosus) Lymphoma Mother Colon cancer Maternal Aunt Breast cancer Social History Household Members Other:: alone Housing: House Are you a primary patient care specialist to a significant other at home: No Do you presently have visiting nurse or other home services: No Alcohol intake: current Alcohol intake frequency: 0-2 drinks per day Alcohol type: wine Patient Tobacco Use Status: Never used Tobacco e-Cigarette/Vaping Use: Never Used Second Hand Smoke Exposure: No Advance Directives Date on File: 01/03/25 Current occupational 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[employer] Cognitive needs: No Hearing needs: No Vision needs: Yes Review of Systems Const Denies chills, Denies daytime sleepiness, Denies fatigue, Denies fever(s), Denies frequent falls, Denies poor appetite, Denies snoring, Denies stops breathing during sleep, Denies weakness, Denies weight gain and Denies weight loss Eyes Denies loss of vision ENT Denies dizziness and Denies hearing loss Card Reports chest pain, Reports irregular heart rhythm, Denies claudication, Denies leg edema, Denies lightheadedness, Denies palpitations, Denies dyspnea, Denies dyspnea on exertion and Denies orthopnea Resp Denies cough, Denies excessive phlegm production, Denies dyspnea, Denies dyspnea on exertion, Denies snoring and Denies wheezing GI Denies abdominal pain, Denies hematochezia, Denies change in bowel habits, Denies nausea and Denies vomiting Denies urinary frequency and Denies dysuria Musc Denies arthralgias, Denies muscle weakness, Denies numbness and Denies other (frequent falls) Skin/Breast Denies nail changes and Denies rash Neuro Denies Abnormal speech present, Denies dizziness, Denies frequent falls, Denies loss of vision, Denies memory loss, Denies numbness and Denies weakness Psych Denies depression and Denies memory loss Endo Denies fatigue and Denies palpitations Neal/Lymph Reports easy bruising and Reports other (anemia) Aller/Immun Denies wheezing Physical Exam Vital Signs: Last Vital Signs Pulse 84 07/04/25 11:34 BP 120/66 07/04/25 11:34 BMI result Body Mass Index 25.3 Neuro Speech: No Abnormal speech present Assessment & Plan Assessment & Plan (1) Cardiac arrhythmia: Code(s): I49.9 - Cardiac arrhythmia, unspecified Category: Medical Plan: Cardiac arrhythmias with occasional PACs and PVCs with 2 runs of nonsustained VT, longest 4 beats and multiple runs of SVT, longest 35 beats per minute. She is not significantly symptomatic at this point time with occasional palpitations. Structure of the heart is normal with no evidence of coronary disease by stress echocardiogram at adequate workload with normal echocardiogram shows mildly increased wall thickness. I recommended to be started on metoprolol XL 25 mg daily to suppress her cardiac arrhythmias. Avoidance of stimulants was discussed. Stress mitigation strategies were discussed. Given normal structure of the heart overall benign nature of these arrhythmias especially in his absence of symptoms was discussed with her. She understands agrees. Will repeat Holter monitor in about couple of months and follow up with results over the telephone. Follow up in the clinic in 1 year's time Orders: Orders ECG holter monitor 48 hour 2 Months I49.9 - Cardiac arrhythmia, unspecified Medications: New metoprolol succinate ER (Toprol XL) 25 mg PO DAILY 30 tabs 5RF Coding Level of Care Code Est Pt Level 4 (55618) Complex EM visit Add On G2211 Diagnoses Cardiac arrhythmia I49.9
== END 2025-07-04 11:55 | disposition home or self-care (01) ==
LOC: HO.HCS 11:33
PROVIDERS: PCP Internal Medicine; Visit Provider Internal Medicine Cardiovascular Disease
DX: I49.9 Cardiac arrhythmia, unspecified (principal)
CPT/HCPCS: 99214; G2211

== ENCOUNTER 2025-07-05 09:09 | Outpatient (AMB) | payer OTHER, SELFPAY ==
--- NOTE | 2025-07-05 09:19 | MHC.PC.OV ---
Vital Signs 07/05/25 09:20 Height 5 ft 7 in Weight 158 lb BMI 24.7 BP 136/76 Blood Pressure Location Lt brachial Position Sitting Respiration 15 Pulse 80 Pulse Source Pulse Oximeter Temp 98.4 F Temp Source Oral Pulse Oximetry (%) 96 Oxygen Delivery Method Room Air Intake Visit Reasons: 6 months f/up Intake Note: Pt is here today for her 6mo. f/u labs Healthcare Insurance Sales Agent Required: No Allergies amoxicillin (AMOXICILLIN) Allergy (Severe, Verified 07/05/25 09:47) HIVES Medication List - Last Reconciled 07/05/25 by Анна Bhatt MD [id number] mg 2 tabs PO DAILY cholecalciferol (vitamin D3) (Vitamin D3) 25 mcg PO DAILY magnesium 400mg po qd metoprolol succinate ER (Toprol XL) 25 mg PO DAILY multivitamin 1 tab PO DAILY multivitamin with minerals (Hair,Skin and Nails tablet) 1 tab PO DAILY omega-3 fatty acids 1,000 mg PO DAILY omeprazole 40 mg PO DAILY Tobacco use date assessed: 07/05/25 Fall risk assessment: No Falls in past year Last assessed Fall Risk: 07/05/25 Dental Screening Dental Screen Date: 07/05/25 Did you have a dental visit in the last 12 months?: Yes Did you have a dental problem in the last 6 months where you did not have access to dental care?: No Was dental information given to patient?: Patient has dentist HPI 6 months f/up HPI Details The patient is a 75-year-old female with history of osteoarthritis, scoliosis, and cardiac arrythmias, here today for follow-up. She was recently seen by Cardiology, underwent a stress test which showed no evidence of ischemia at good workload for her. Echocardiogram showed normal LV ejection fraction but mildly increased LV wall thickness of unclear etiology. She has no history of hypertension. Holter monitor showed occasional PVCs but 2 runs of nonsustained VT at 4 beats with occasional PACs with short runs of SVT, longest lasting 35 beats at 183 beats per minute. She denies any sustained palpitations. No lightheadedness, syncope. No exertional chest pain or shortness of breath. She is currently on metoprolol succinate ER 25 mg daily The patient reports a history of osteoarthritis affecting her knees, feet, back, and neck, with symptoms including pain and stiffness, particularly in the knees. The condition has been managed with cortisone injections and physical therapy, providing some relief, although the pain persists, especially when ascending or descending stairs. X-rays have shown lateral arthritis, more pronounced in the right knee, and the patient has not undergone an MRI for further evaluation. She also has cervical spondylosis and scoliosis, with the latter causing curvature in the thoracic She is currently [facility] by Dr. Arredondo. The patient reports ear discomfort due to wax buildup in the right ear, which has been persistent for years. Attempts to manage this with Debrox have been made, but the ear remains full, causing headaches. [facility] Medical History (Updated 07/09/25 @ 21:07 by Анна Bhatt MD) Transaminitis Osteopenia of left femoral neck Impaired fasting glucose Ulcer of antrum of stomach Esophageal dysmotility Achalasia of esophagus Heartburn symptom Epigastric pain History of cholelithiasis Cyst of left kidney History of melanoma Biliary colic Polymyalgia rheumatica Mixed dyslipidemia Primary localized osteoarthrosis of multiple sites Fibromyalgia Melanoma in situ of right lower extremity Surgical History History of laparoscopic cholecystectomy H/O colonoscopy H/O melanoma excision History of cataract surgery History of tonsillectomy H/O hysterectomy with unilateral oophorectomy Family History Father Acute leukemia SLE (systemic lupus erythematosus) Lymphoma Mother Colon cancer Maternal Aunt Breast cancer Social History Household Members Other:: alone Housing: House Are you a primary palliative care nurse to a significant other at home: No Do you presently have visiting nurse or other home services: No Alcohol intake: current Alcohol intake frequency: 0-2 drinks per day Alcohol type: wine Patient Tobacco Use Status: Never used Tobacco e-Cigarette/Vaping Use: Never Used Second Hand Smoke Exposure: No Advance Directives Date on File: 01/03/25 Current occupational 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 1. Little interest or pleasure in doing things: not at all 2. Feeling down, depressed, or hopeless: not at all 3. Trouble falling or staying asleep, or sleeping too much: not at all 4. Feeling tired or having little energy: not at all 5. Poor appetite or overeating: not at all 6. Feeling bad about yourself - or that you are a failure or have let yourself or your family down: not at all 7. Trouble concentrating on things, such as reading the newspaper or watching television: not at all 8. Moving or speaking so slowly that other people could have noticed. Or the opposite - being so fidgety or restless that you have been moving around a lot more than usual: not at all 9. Thoughts that you would be better off or of hurting yourself in some way: not at all Total score: 0 Depression Screening Interpretation: Negative Depression Screening Done: Yes Source: Developed by Drs. aKvon Rascon, Rosa Cash, Karsten Kelley and colleagues, with an educational edie from [employer]. Thrive Questionnaire Date Thrive assessed: 06/29/25 I am a: Patient What is your living situation today?: I have a steady place to live Within the past 12 months, did the food you bought not last and you didn't have the money to get more?: Never true Within the past 12 months, did you worry whether your food would run out before you got money to buy more?: Never true Do you have trouble paying for medicines?: No Do you have trouble getting transportation to medical appointments?: No Do you have trouble paying your heating and electricity bill?: No Do you have trouble taking care of your child, family member or friend?: No Do you have trouble with day-to-day activities such as bathing, preparing meals, shopping, managing finances, etc.?: No Are you currently unemployed and looking for a job?: No Are you interested in more education?: No Please select the resources that you would like help with: None Currently or been in a relationship where the following occur: No concerns reported THRIVE Score: 0 AUDIT C Alcohol Use Questionnaire (AUDIT-C) 1. How often do you have a drink containing alcohol?: Never 3. How often do you have six or more drinks on one occasion?: Never Total Score: 0 CAMILA-7 AMB Questionnaire CAMILA-7 Date CAMILA - 7 assessed: 01/03/25 Feeling nervous, anxious, or on edge: 0 = Not at all Not being able to stop or control worryin = Not at all Worrying too much about different things: 0 = Not at all Trouble relaxin = Not at all Being so restless that it is hard to sit still: 0 = Not at all Becoming easily annoyed or irritable: 0 = Not at all Feeling afraid as if something awful might happen: 0 = Not at all Total CAMILA-7 score (0-4 normal; 5-9 mild; 10-14 moderate; 15-21 severe): 0 Source: Developed by Drs. Kavon Rascon, Rosa Cash, Karsten Kelley and colleagues, with an educational edie from [employer]. Review of Systems Const All systems reviewed & are unremarkable except as noted in HPI and below Physical exam (Primary Care) Vital Signs: Last Vital Signs Temp 98.4 F 07/05/25 09:20 Pulse 80 07/05/25 09:20 Resp 15 07/05/25 09:20 BP 136/76 07/05/25 09:20 Pulse Ox 96 07/05/25 09:20 Oxygen Delivery Method Room Air 07/05/25 09:20 BMI result Body Mass Index 24.7 Tobacco/Smoking Status: Tobacco use Status Tobacco use date assessed 07/05/25 07/05/25 09:24 Patient Tobacco Use Status Never used Tobacco 07/05/25 09:24 e-Cigarette/Vaping Use Never Used 07/05/25 09:24 PHQ-9: PHQ-9 Score PHQ-9: Total score 0 07/05/25 10:01 Depression Screening Interpretation: Negative Thrive Assessment: Date of Thrive Assessment Date Thrive assessed 06/29/25 07/05/25 09:24 Currently or been in a relationship where the following occur: No concerns reported Const Other: Alert oriented x3, no acute cardiorespiratory distress noted, ambulatory with normal gait Orientation/consciousness: patient oriented x3 HENMT Mouth: Normal oral and palatal mucosa present, oropharynx normal and moist mucous membranes Eyes General: appearance normal, both eyes and all related structures Neck Other: Supple, no lymphadenopathy, thyroid gland nonpalpable Resp Effort & Inspection: normal respiratory effort and able to speak in complete sentences Auscultation: clear to auscultation bilaterally Cardio Other: S1-S2 present regular rate and rhythm Bruits: no abdominal aortic bruits GI Inspection: Yes normal to inspection Palpation (GI): No Abdominal aortic bruit present, Soft to palpation, nontender, no guarding and no masses Auscultation: normal bowel sounds General: Yes no CVA tenderness Back/Spine/Pelvis Back: no CVA tenderness Skin General skin exam: no rashes or lesions noted Neuro General: patient oriented x3, gait normal, moves all extremities, Normal light touch and pain sensation, no focal motor deficits and CN's II-XI intact bilaterally Extrem General: Yes full ROM, Yes no joint enlargement, Yes no clubbing, cyanosis or edema and Yes normal gait Psych Appearance: grossly normal and well kempt Mental Status: mental status grossly normal Speech and movement: Normal speech and movement present Affect: normal affect Thought process: Normal thought process present Thought content: Normal thought content present Coding Level of Care Code Est Pt Level 4 (81601) Diagnoses Impacted cerumen of right ear H61.21 Cardiac arrhythmia I49.9 Primary localized osteoarthrosis of multiple sites M1. Assessment & Plan Assessment & Plan (1) Impacted cerumen of right ear: Code(s): H61.21 - Impacted cerumen, right ear Plan: Successful removal of impacted cerumen with lighted curette, patient tolerated procedure well, with no complaints of ear pain or lightheadedness reported. (2) Cardiac arrhythmia: Code(s): I49.9 - Cardiac arrhythmia, unspecified Category: Medical Plan: Followed by cardiology, currently on metoprolol succinate 25 mg daily, scheduled for a repeat Holter monitor in a couple of months, has been advised to avoid caffeine or stimulants (3) Primary localized osteoarthrosis of multiple sites: Code(s): M19.91 - Primary osteoarthritis, unspecified site Category: Medical Plan: Followed by [facility], Dr. Arredondo
[2025-07-05 09:20] VITALS: BP 136/76; PULSE 80; RESP 15; TEMP 36.9; O2SAT 96; BMI 24.7
--- OUTSIDE RECORDS SUMMARY | 2025-07-05 10:09 | XMS_ITS | Encounter Summary ---
Author Organization [employer] Address [address] [facility] [address] [place] [address] Care Team Providers Care Government Affairs Fellow Name Role Phone Unavailable Primary Care Provider Unavailabl e Encounter Details Date Type Department Care Team (Latest Contact Info) Description 01/02/2021 Abstract [facility] CONVERSIONS Dental, Provider, DDS Social History [...] Description 10/02/2025 2:15 PM EST Office Visit [facility] ADULT DENTAL [address] [place] [address] Jordan Buckley documented as of this encounter Visit Diagnoses Not on filedocumented in this encounter
--- OUTSIDE RECORDS SUMMARY | 2025-07-05 10:09 | XMS_ITS | Encounter Summary ---
Author Organization [employer] Address [address] [facility] [address] [place] [address] Care Team Providers Care Wage And Hour Investigator Name Role Phone Unavailable Primary Care Provider Unavailabl e Reason for Visit * Reason Onset Date Comments narrative/xrays for denial appeal 06/20/2025 Encounter Details Date Type Department Care Team ([facility] st Contact Info) Description 06/20/2025 Telephone [facility] CHC ADULT DENTAL [address] [place] [address] Olivia Arenas, DDS [address] [place] [address] narrative/xrays for denial appeal Social History Tobacco Use Types Packs/Day Years [...] AM EDT documented as of this encounter Miscellaneous Notes * Telephone Encounter - Mariola Sarmiento - 06/20/2025 9:45 AM EDT Patient has applied for appeal with [facility] for denial scanned in on 04/26/2025. Prior provider Dr. Figueroa. Geoffrey is looking for additional information regarding treatment past the 03/07 date as those are the last xrays [place] has on file. Fax number [phone] [facility] to [place] [facility]. Geoffrey requested narrative in writing with additional information to be sent to [email or web address] for review of appeal. Provided phone numbrer [phone] to reach out directly with any questions or to provide information for treatment appeal. documented in this encounter Plan of Treatment Upcoming Encounters Date Type Department Care Team ([facility] st Contact Info) Description 10/02/2025 2:15 PM EST Office Visit [facility] ADULT DENTAL [address] [place] [address] Jordan Buckley documented as of this encounter Visit Diagnoses Not on filedocumented in this encounter
--- OUTSIDE RECORDS SUMMARY | 2025-07-05 10:09 | XMS_ITS | Encounter Summary ---
Author Organization [employer] Address [address] [facility] [address] [place] [address] Care Team Providers Care Professor Of Psychology Name Role Phone Unavailable Primary Care Provider Unavailabl e Encounter Details Date Type Department Care Team (Latest Contact Info) Description 03/04/[address] [facility] CONVERSIONS Dental, Provider, DDS Social History [...] Description 10/02/2025 2:15 PM EST Office Visit [facility] CHC ADULT DENTAL [address] [place] [address] Jordan Buckley documented as of this encounter Visit Diagnoses Not on filedocumented in this encounter
--- OUTSIDE RECORDS SUMMARY | 2025-07-05 10:09 | XMS_ITS | Encounter Summary ---
Author Organization [employer] Address [address] [facility] [address] [place] [address] Care Team Providers Care Captain'S Assistant Name Role Phone Unavailable Primary Care Provider Unavailabl e Encounter Details Date Type Department Care Team (Latest Contact Info) Description 01/23/2022 Abstract [facility] CONVERSIONS Dental, Provider, DDS Social [...] Description 10/02/2025 2:15 PM EST Office Visit [facility] CHC ADULT DENTAL [address] [place] [address] Jordan Buckley documented as of this encounter Visit Diagnoses Not on filedocumented in this encounter
--- OUTSIDE RECORDS SUMMARY | 2025-07-05 10:10 | XMS_ITS | Clinical Summary ---
Author Organization [employer] Address [address] [facility] [address] [place] [address] Care Team Providers Care Bookbinding Machine Operator Name Role Phone Unavailable Primary Care [...] Encounters Date Type Department Care Team Description 06/20/2025 Telephone [facility] ADULT DENTAL [address] [place] [address] Olivia Arenas DDS narrative/xrays for denial appeal from Last 3 Months Social History Tobacco [...] Description 10/02/2025 2:15 PM EST Office Visit [facility] ADULT DENTAL [address] [place] [address] Jordan Buckley Health Maintenance Due Date Last [...] Procedure Name Priority Date/Time Associated Diagnosis Comments Full PROPHYLAXIS - ADULT Routine 025 10:00 AM EDT BITEWINGS - 4 RADIOGRAPHIC IMAGES Routine 03/28/2025 10:00 AM EDT PERIODIC ORAL EVALUATION - ESTABLISHED PATIENT Routine 07/14/2024 11:00 AM EDT INTRAORAL - COMPLETE SERIES OF RADIOGRAPHIC IMAGES Routine 01/01/2024 1:00 PM EDT from Last 3 Months or Most Recently Relevant to Health Maintenance Insurance DENTAL - [facility]
== END 2025-07-05 12:29 | disposition home or self-care (01) ==
LOC: HO.HMCC 09:10
PROVIDERS: PCP Internal Medicine; Visit Provider Internal Medicine
DX: H61.21 Impacted cerumen, right ear (principal); I49.9 Cardiac arrhythmia, unspecified; M19.91 Primary osteoarthritis, unspecified site

== ENCOUNTER 2025-08-11 12:48 | Day surgery (SDC) | payer MEDICARE, OTHER, SELFPAY ==
--- OUTSIDE RECORDS SUMMARY | 2025-07-06 12:41 | XMS_ITS | Encounter Summary ---
Author Organization [employer] Address [address] [facility] [address] [place] [address] Care Team Providers Care Rocket Scientist Name Role Phone Unavailable Primary Care Provider Unavailabl e Encounter Details Date Type Department Care Team (Latest Contact Info) Description 01/02/2021 Abstract [facility] CONVERSIONS Dental, Provider, DDS Social History [...] Description 10/02/2025 2:15 PM EST Office Visit [facility] CHC ADULT DENTAL [address] [place] [address] Jordan Buckley documented as of this encounter Visit Diagnoses Not on filedocumented in this encounter
--- OUTSIDE RECORDS SUMMARY | 2025-07-06 12:41 | XMS_ITS | Encounter Summary ---
Author Organization [employer] Address [address] [facility] [address] [place] [address] Care Team Providers Care Critical Care Unit Manager Name Role Phone Unavailable Primary Care Provider Unavailabl e Reason for Visit * Reason Onset Date Comments narrative/xrays for denial appeal 06/20/2025 Encounter Details Date Type Department Care Team ([facility] st Contact Info) Description 06/20/2025 Telephone [facility] CHC ADULT DENTAL [address] [place] [address] Olivia Arenas, DDS [address] [place] [address] narrative/xrays for denial appeal Social History Tobacco [...] EDT Patient has applied for appeal with [facility] for denial scanned in on 04/26/2025. Prior provider Dr. Figueroa. Geoffrey is looking for additional information regarding treatment past the 03/07 date as those are the last xrays [place] has on file. Fax number [phone] [facility] [place] [facility] Geoffrey requested narrative in writing with additional information to be sent to [email or web address] for review of appeal. Provided phone numbrer [phone] to reach out directly with any questions or to provide information for treatment appeal. documented in this encounter Plan of Treatment Upcoming Encounters Date Type Department Care Team ([facility] st Contact Info) Description 10/02/2025 2:15 PM EST Office Visit [facility] ADULT DENTAL [address] [place] [address] Jordna Buckley documented as of this encounter Visit Diagnoses Not on filedocumented in this encounter
--- OUTSIDE RECORDS SUMMARY | 2025-07-06 12:41 | XMS_ITS | Encounter Summary ---
Author Organization [employer] Address [address] [facility] [address] [place] [address] Care Team Providers Care Director Of Outreach Name Role Phone Unavailable Primary Care Provider Unavailabl e Encounter Details Date Type Department Care Team (Latest Contact Info) Description 01/23/2022 Abstract [facility] CONVERSIONS Dental, Provider, DDS Social [...] Description 10/02/2025 2:15 PM EST Office Visit [facility] CHC ADULT DENTAL [address] [place] [address] Jordan Buckley documented as of this encounter Visit Diagnoses Not on filedocumented in this encounter
--- OUTSIDE RECORDS SUMMARY | 2025-07-06 12:41 | XMS_ITS | Encounter Summary ---
Author Organization [employer] Address [address] [facility] [address] [place] [address] Care Team Providers Care Tube And Rod Straightener Name Role Phone Unavailable Primary Care Provider Unavailabl e Encounter Details Date Type Department Care Team (Latest Contact Info) Description 03/04/2019 Abstract [facility] CONVERSIONS Dental, Provider, DDS Social History [...] Description 10/02/2025 2:15 PM EST Office Visit [facility] CHC ADULT DENTAL [address] [place] [address] Jordan Buckley documented as of this encounter Visit Diagnoses Not on filedocumented in this encounter
--- OUTSIDE RECORDS SUMMARY | 2025-07-06 12:41 | XMS_ITS | Clinical Summary ---
Author Organization [employer] Address [address] [facility] [address] [place] [address] Care Team Providers Care Malt House Loader Name Role Phone Unavailable Primary Care [...] Type Department Care Team Description 06/20/2025 Telephone [facility] ADULT DENTAL [address] [place] [address] Olivia Arenas DDS narrative/xrays for denial appeal [...] Description 10/02/2025 2:15 PM EST Office Visit [facility] ADULT DENTAL [address] [place] [address] Jordan Buckley Health Maintenance Due Date Last [...] Relevant to Health Maintenance Insurance DENTAL - [facility]
--- NOTE | 2025-08-08 12:02 | HO.ANESPROP2 ---
Documented by User: Catherine Mena NP 08/08/25 12:08 HPI - Anesthesia Eval Consult details Narrative: 75yo F for Upper Endoscopy [facility] [place] [facility] [place] 05/2025 for cardiac arrythmia. Stress echo and echo OK. Stareted on metoprolol. PMF Active Problems Active Problems: All Active Problems Cardiac arrhythmia (Acute) Atypical chest pain (Acute) Transaminitis (Acute) Osteopenia of left femoral neck (Acute) Impaired fasting glucose (Acute) Ulcer of antrum of stomach (Acute) Esophageal dysmotility (Acute) Achalasia of esophagus (Acute) Heartburn symptom (Acute) Epigastric pain (Acute) Cyst of left kidney (Acute) History of melanoma (Acute) Diverticulosis of colon (Acute) Hyperplastic colon polyp (Acute) Mixed dyslipidemia (Acute) Primary localized osteoarthrosis of multiple sites (Acute) Past Medical History Medical History Transaminitis Osteopenia of left femoral neck Impaired fasting glucose Ulcer of antrum of stomach Esophageal dysmotility Achalasia of esophagus Heartburn symptom Epigastric pain History of cholelithiasis Cyst of left kidney History of melanoma Biliary colic Polymyalgia rheumatica Mixed dyslipidemia Primary localized osteoarthrosis of multiple sites Fibromyalgia Melanoma in situ of right lower extremity Family History Family History Father Acute leukemia SLE (systemic lupus erythematosus) Lymphoma Mother Colon cancer Maternal Aunt Breast cancer Family history of problems with anesthesia: No Surgical History Surgical History History of laparoscopic cholecystectomy H/O colonoscopy H/O melanoma excision History of cataract surgery History of tonsillectomy H/O hysterectomy with unilateral oophorectomy History of Problems with Anesthesia: No Social History Social History Household Members Other:: alone Housing: House Are you a primary rn care transition to a significant other at home: No Do you presently have visiting nurse or other home services: No Alcohol intake: current Alcohol intake frequency: 0-2 drinks per day Alcohol type: wine Patient Tobacco Use Status: Never used Tobacco e-Cigarette/Vaping Use: Never Used Second Hand Smoke Exposure: No Advance Directives: No Advance Directives Information Provided: Yes Advance Directives Date on File: 01/03/25 Current occupational 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[employer] Cognitive needs: No Hearing needs: No Vision needs: Yes Meds Allergies Allergy/AdvReac Type Severity Reaction Status Date / Time amoxicillin (AMOXICILLIN) Allergy Severe HIVES Verified 07/05/25 09:47 Home Medications ?Medication ?Instructions ?Recorded ?Confirmed ?Last Taken ?Type [id number] 333 mg-133 2 tab PO DAILY 12/07/20 07/05/25 Unknown History mg-8.3 mg tablet multivitamin 1 tab PO DAILY 12/07/20 07/05/25 Unknown History cholecalciferol (vitamin D3) 25 25 mcg PO DAILY 02/12/21 07/05/25 Unknown History mcg (1,000 unit) capsule (Vitamin D3) multivitamin with minerals 1 tab PO DAILY 12/29/23 07/05/25 Unknown History (Hair,Skin and Nails tablet) omega-3 fatty acids 1,000 mg 1,000 mg PO DAILY 12/29/23 07/05/25 Unknown History capsule magnesium tab PO 01/03/25 07/05/25 Unknown History Exam Pertinent Lab Results Pertinent Lab Results: Laboratory Tests 03/16/25 04/07/25 09:48 09:00 WBC 8.3 Hgb 13.8 Hct 41.8 Plt Count 283 D Sodium 143 Potassium 4.0 Chloride 109 H Carbon Dioxide 26 BUN 7 L Creatinine 0.79 Narrative Narrative: EKG 03/2025 EKG Details: EKG shows normal sinus rhythm with occasional PVCs, appear to be unifocal with fixed inter coupling Holter 05/2025 (pre-beta block) Total monitoring time 7 days. Underlying rhythm is sinus with an average rate of 74/Min. Supraventricular ectopy noted with a burden of 0.5%. 42 runs noted, longest 35 beats. Fastest 183/Min. Ventricular ectopy noted with a burden of 0.8%. Rare couplets and isolated triplet. Two runs, longest 4 beats. No significant pauses or high-grade AV blocks. No patient markers or diary events. ECHO 05/2025 Conclusions: - 1. Normal LV ejection fraction of 55-60% with mild LVH with impaired relaxation filling pattern 2. Mildly dilated left atrium 3. Moderate mitral annular calcification with normal cardiac valvular Dopplers 4. No gross pericardial effusion Stress ECHO 05/2025 Protocol: DAAN Max HR: 139 BPM 96% of Pred: 144 BPM Max BP: 160/80 mmHG Max Work Load: 5.1 METS Exercise stress test with exercise 5 mins 22 secs of Adan Protocol, at reduced speed of 2.5 mph, achieving 86% MPHR, with reports of SOB, reported intermittent 7/10 mid chest pain correlating everytime with the PVCs, with isolated PACs, frequent PVCs and ventricular couplets, with normotensive response to exercise. Without any EKG changes meeting criteria for ischemia. In recovery, breathing returned to baseline and chest discomfort resolved. Echo images obtained by tech at rest and post peak exercise. Definity contrast utilized. Test reviewed with Dr. Fontenot. Exercise echocardiogram was reviewed. At rest, there is normal LVEF and wall motion. With peak exercise, there is appropriate augmentation of wall thickening and contractility. There is normal decrease in end-systolic volumes. No clear evidence of exercise induced diastolic dysfunction or pulmonary hypertension. Overall, no evidence of ischemia or exercise induced diastolic dysfunction/pulmonary hypertension. Assessment and Plan Assessment Anesthesia Assessment: Chart Reviewed Final Anesthetic Review Family History of Problems with Anesthesia: No History of Problems with Anesthesia: No Documented by User: Rebekah Calderón MD 08/11/25 13:42 [facility] Past Medical History Medical History Transaminitis Osteopenia of left femoral neck Impaired fasting glucose Ulcer of antrum of stomach Esophageal dysmotility Achalasia of esophagus Heartburn symptom Epigastric pain History of cholelithiasis Cyst of left kidney History of melanoma Biliary colic Polymyalgia rheumatica Mixed dyslipidemia Primary localized osteoarthrosis of multiple sites Fibromyalgia Melanoma in situ of right lower extremity Family History Family History Father Acute leukemia SLE (systemic lupus erythematosus) Lymphoma Mother Colon cancer Maternal Aunt Breast cancer Surgical History Surgical History History of laparoscopic cholecystectomy H/O colonoscopy H/O melanoma excision History of cataract surgery History of tonsillectomy H/O hysterectomy with unilateral oophorectomy Social History Social History Household Members Other:: alone Housing: House Are you a primary rn care transition to a significant other at home: No Do you presently have visiting nurse or other home services: No Alcohol intake: current Alcohol intake frequency: 0-2 drinks per day Alcohol type: wine Patient Tobacco Use Status: Never used Tobacco e-Cigarette/Vaping Use: Never Used Second Hand Smoke Exposure: No Advance Directives: No Advance Directives Information Provided: Yes Advance Directives Date on File: 01/03/25 Current occupational status: retired Current occupation: [employer] Cognitive needs: No Hearing needs: No Vision needs: Yes Meds Allergies Allergy/AdvReac Type Severity Reaction Status Date / Time amoxicillin (AMOXICILLIN) Allergy Severe HIVES Verified 07/05/25 09:47 Home Medications ?Medication ?Instructions ?Recorded ?Confirmed ?Last Taken ?Type [id number] 333 mg-133 2 tab PO DAILY 12/07/20 07/05/25 Unknown History mg-8.3 mg tablet multivitamin 1 tab PO DAILY 12/07/20 07/05/25 Unknown History cholecalciferol (vitamin D3) 25 25 mcg PO DAILY 02/12/21 07/05/25 Unknown History mcg (1,000 unit) capsule (Vitamin D3) multivitamin with minerals 1 tab PO DAILY 12/29/23 07/05/25 Unknown History (Hair,Skin and Nails tablet) omega-3 fatty acids 1,000 mg 1,000 mg PO DAILY 12/29/23 07/05/25 Unknown History capsule magnesium tab PO 01/03/25 07/05/25 Unknown History Exam Airway TM Dist: >3cm Neck ROM: Limited Heart: rrr Lungs: cta Assessment and Plan Final Anesthetic Review NPO: Yes ASA Class: II Final Preanesthetic Review: No Changes in Pt Med Stat, Meds/Allgs Chart Reviewed, Consent Obtained/Reviewed and Anes Risks/Benef Reviewed Patient Risk: Low Procedure Risk: Low Anesthetic Plan Anesthetic Plan: MAC: Disposition: Standard PACU
[2025-08-11 13:48] VITALS: BMI 24.4
[2025-08-11 13:55] VITALS: BP 142/68; PULSE 67; RESP 16; TEMP 36.2; O2SAT 100
[2025-08-11] MEDS: Lactated Ringers 1,000 ML 100 ML IVCONT (14:08)
--- NOTE | 2025-08-11 14:09 | MHC.SHP ---
Pre-Procedural Eval Section A - 24 Hr Update-Section A only Date of Service: 08/11/25 Section B - Complete if H&P > 30 days Chief Complaint: Epigastric pain,heartburn Details of Present Illness: Irregular heart rhythm Transaminitis Osteopenia of left femoral neck Impaired fasting glucose Ulcer of antrum of stomach Esophageal dysmotility Achalasia of esophagus Heartburn symptom Epigastric pain History of cholelithiasis Cyst of left kidney History of melanoma Biliary colic Polymyalgia rheumatica Mixed dyslipidemia Primary localized osteoarthrosis of multiple sites Fibromyalgia Melanoma in situ of right lower extremity Surgical History History of laparoscopic cholecystectomy H/O colonoscopy H/O melanoma excision History of cataract surgery History of tonsillectomy H/O hysterectomy with unilateral oophorectomy Allergies: Allergies Allergy/AdvReac Type Severity Reaction Status Date / Time amoxicillin (AMOXICILLIN) Allergy Severe HIVES Verified 07/05/25 09:47 Review of Systems Review of Systems Comment: Ten point ROS negative Exam Exam Comment: Gen appear: No acute distress HEENT: no icterus Chest: No overt resp distress Abd: soft, nontender, nondistended Psych: Stable affect, answering questions appropriately Neuro: A/Ox3 noted to move all extremities spontaneously Ext: no peripheral edema Plan Diagnosis/Plan: Unchanged I have reviewed the history and physical and performed a pertinent physical examination on my patient. No changes have occurred unless specified. Time Spent With Patient Time: Total time managing care of this patient today ____ minutes.
--- NOTE | 2025-08-11 15:04 | P.OP_ITS ---
Operative Note Operative Note Date of Service: 08/11/25 Narrative: Procedure: Esophagogastroduodenoscopy Endoscopist: Yareli Raman MD Indication: Epigastric pain Anesthesia Provider: Jorgito Avina CRNA Anesthesia Type: MAC ?? EGD Procedure:?? The procedure, indications, preparation and potential complications were reviewed with the patient, who indicated understanding and gave written informed consent to proceed. A physical exam was performed. The endoscope was introduced through the mouth, and advanced to the second part of duodenum. The mucosa was carefully examined on slow withdrawal of the endoscope. The patient tolerated the procedure well. There were no immediate complications.? ? EGD Findings:? * Esophagus:? Normal mucosa noted in the entire esophagus. The Z line was at 35 cm. * Stomach:? Mild congestion with velveting of the mucosa noted in the antrum. Retroflexion was performed in the cardia. Jumbo forceps biopsies were taken from the gastric body and antrum. * Duodenum:? Erythema and aphthous ulcers noted in the first portion of the duodenum. Jumbo forceps biopsies were taken for histology. ? EGD Impressions:? * Normal esophagus * Gastritis (biopsy) * Duodenitis (biopsy) ?? Recommendations:?? * Follow biopsy results. Our office will call or send a letter with results within 7-10 days. * Continue PPI therapy. * If H pylori +, patient will be prescribed eradication therapy followed by test of cure. * Avoid NSAIDs. * Patient reports resolution of prev reported occ chest pain/epigastric pain however if that recurs can consider HREM Above has been reviewed with the patient.
[2025-08-11 15:07] VITALS: BP 113/64; PULSE 70; RESP 16; TEMP 36.6; O2SAT 97
[2025-08-11 15:20] VITALS: BP 125/66; PULSE 62; RESP 16; TEMP 36.6; O2SAT 97
== END 2025-08-11 15:58 | disposition home or self-care (01) ==
PROVIDERS: PCP Internal Medicine; Visit Provider Internal Medicine
PROC: 0DJ08ZZ Inspection of Upper Intestinal Tract, Via Natural or Artificial Opening Endoscopic (ICD-10-PCS; CPT 43235; principal; 2025-08-11 14:20)
DX: R10.13 Epigastric pain (principal); Z80.0 Family history of malignant neoplasm of digestive organs; K29.70 Gastritis, unspecified, without bleeding
CPT/HCPCS: 43239; 88305; 88313; 88342; J2704

== ENCOUNTER → 2025-08-11 12:48 | Outpatient (BNV) | payer MEDICARE, MEDICAID, SELFPAY | PROVIDERS: PCP Internal Medicine; Visit Provider Internal Medicine | DX: R10.13 Epigastric pain (principal); K29.70 Gastritis, unspecified, without bleeding; K29.80 Duodenitis without bleeding | CPT/HCPCS: 43239 ==

== ENCOUNTER → 2025-08-24 11:18 | Outpatient (REF) | payer MEDICARE, MEDICAID, SELFPAY | LOC: HO.CARD 11:18 | PROVIDERS: PCP Internal Medicine; Visit Provider Internal Medicine Cardiovascular Disease | DX: I49.9 Cardiac arrhythmia, unspecified (principal) | CPT/HCPCS: 93225 ==

== ENCOUNTER → 2025-08-24 11:20 | Outpatient (BNV) | payer MEDICARE, MEDICAID, SELFPAY | PROVIDERS: PCP Internal Medicine; Visit Provider Internal Medicine Cardiovascular Disease | DX: I49.9 Cardiac arrhythmia, unspecified (principal) | CPT/HCPCS: 93227 ==

== ENCOUNTER 2025-08-31 08:44 | Outpatient (AMB) | payer MEDICARE, MEDICAID, SELFPAY ==
--- NOTE | 2025-08-31 08:49 | MHC.OFFVIS ---
Vital Signs 08/31/25 08:53 Height 5 ft 8 in Weight 158 lb BMI 24.0 Intake Visit Reasons: Epigastric pain,heartburn Intake Note: Patient follow up for Epigastric pain, and heartburn and lab/EGD results Patient denies any GI issues for today visit. Industrial Rehabilitation Consultant Required: No Accompanied by: Self / Same As Patient Allergies amoxicillin (AMOXICILLIN) Allergy (Severe, Verified 08/31/25 08:49) HIVES HPI HPI Epigastric pain,heartburn: Details: Patient is a 74-year-old female with PMH of fibromyalgia, OA and hyperlipidemia. Follow-up on an upper endoscopy. The procedure was performed on August 11, 2025, due to upper epigastric pain and moderate acid reflux, which was noted on an upper GI series on March 10, 2025. The endoscopy revealed gastritis and duodenitis, though her esophagus was normal, and biopsies showed only inflammation. She was previously prescribed omeprazole 40 mg and famotidine as needed. The patient reports her symptoms have improved since the procedure and she is not taking omeprazole daily, preferring dietary management. She has a history of elevated liver enzymes and fatty liver, discussed during her March 16, 2025 visit. A subsequent workup was negative for autoimmune hepatitis, viral hepatitis, and HIV. Her iron profile, PT/INR, CRP, and lipase were normal, and her liver enzymes have since normalized. Lab results indicate she does not have immunity to hepatitis B. Her initial symptoms, which started the GI evaluation, felt like a heart attack with pain radiating to her back and face. She was evaluated by a rag production worker who suspected an esophageal spasm. She has twice worn a Holter monitor and was temporarily on metoprolol, with cardiology results pending. [facility] Medical History (Updated 08/31/25 @ 09:22 by Tammie Graf CNP) Hepatic steatosis Transaminitis Osteopenia of left femoral neck Impaired fasting glucose Ulcer of antrum of stomach Esophageal dysmotility Achalasia of esophagus Heartburn symptom Epigastric pain History of cholelithiasis Cyst of left kidney History of melanoma Biliary colic Polymyalgia rheumatica Mixed dyslipidemia Primary localized osteoarthrosis of multiple sites Fibromyalgia Melanoma in situ of right lower extremity Surgical History History of esophagogastroduodenoscopy (EGD) History of laparoscopic cholecystectomy H/O colonoscopy H/O melanoma excision History of cataract surgery History of tonsillectomy H/O hysterectomy with unilateral oophorectomy Family History Father Acute leukemia SLE (systemic lupus erythematosus) Lymphoma Mother Colon cancer Maternal Aunt Breast cancer Social History Household Members Other:: alone Housing: House Are you a primary chronic care nurse to a significant other at home: No Do you presently have visiting nurse or other home services: No Alcohol intake: current Alcohol intake frequency: 0-2 drinks per day Alcohol type: wine Patient Tobacco Use Status: Never used Tobacco e-Cigarette/Vaping Use: Never Used Second Hand Smoke Exposure: No Advance Directives Date on File: 01/03/25 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: No Hearing needs: No Vision needs: Yes Review of Systems Const Reports as per HPI ENT Reports as per HPI Card Reports as per HPI Resp Reports as per HPI GI Reports as per HPI Reports as per HPI Physical Exam Vital Signs: BMI result Body Mass Index 24.0 Const General: healthy appearing, no acute distress and well developed Nutritional Appearance: average body habitus Orientation/consciousness: patient oriented x3 HEENT Head: Yes normal to inspection, Yes normocephalic and Yes atraumatic Face and sinus: Yes normal facial exam Eyes General: appearance normal, both eyes and all related structures Neck Neck: Yes normal visual inspection Resp Effort & Inspection: normal respiratory effort, able to speak in complete sentences, no tracheal deviation and symmetric chest movement Cardio Jugular venous distension: no JVD Neuro General: patient oriented x3 Gait exam (Neuro): Normal gait present Psych Appearance: grossly normal Mental Status: mental status grossly normal Speech and movement: Normal speech and movement present Affect: normal affect Attitude: cooperative Thought process: Normal thought process present Thought content: Normal thought content present Insight: Good insight present (Psych) Judgement: Good judgement present (Psych) Assessment & Plan Assessment & Plan (1) Heartburn symptom: Comment: 08/11/25 EGD -Normal esophagus , Gastritis, Duodenitis Code(s): R12 - Heartburn Category: Medical Plan: The patient's symptoms have resolved following her upper endoscopy, which confirmed inflammation in the stomach and duodenum. - She will continue to manage her condition with lifestyle and dietary modifications, which she prefers over daily medication. - Omeprazole 40 mg is available for her to use as needed for any breakthrough symptoms. - If symptoms return, she is advised to take omeprazole daily and contact the office for consideration of further investigation, such as an esophageal motility study. - Follow-up will be on an as-needed basis. (2) Hepatic steatosis: Code(s): K76.0 - Fatty (change of) liver, not elsewhere classified Category: Medical Plan: With a history of fatty liver and previously elevated liver enzymes, a comprehensive lab workup ruled out other causes such as autoimmune or viral hepatitis. - Her liver enzymes have normalized, and liver function is normal. - The patient's labs indicate she does not have immunity to hepatitis B. - The hepatitis B vaccine was offered as an added layer of protection for her liver. - The patient declined the vaccine at this time, citing a low-risk lifestyle as she does not have a partner. - She was informed of her options to receive the vaccine at our office, her primary care provider, or a local pharmacy should she change her mind. - The plan is to continue lifestyle modifications, including a well-balanced diet low in unhealthy fats, processed foods, and sugar, to prevent progression of fatty liver disease. Plan Follow-up as needed Time: I spent a total of 22 minutes on the date of encounter which includes: Preparing to see the patient (reviewed previous documentation, test results and medical history) Performing a medically appropriate exam and/or evaluation Ordering medications, tests, and procedures Documenting clinical information in the health record Coding Level of Care Code Established Pt Est Pt Level 3 (47935) Patient Type Established Diagnoses Heartburn symptom R12 Hepatic steatosis K76.0
[2025-08-31 08:53] VITALS: BMI 24.0
== END 2025-08-31 09:25 | disposition home or self-care (01) ==
LOC: HO.HGI 08:44
PROVIDERS: PCP Internal Medicine; Visit Provider Nurse Practitioner Family
DX: R12 Heartburn (principal); K76.0 Fatty (change of) liver, not elsewhere classified
CPT/HCPCS: 99213

== ENCOUNTER → 2025-08-31 08:44 | Outpatient (BNVA) | payer MEDICARE, MEDICAID, SELFPAY | PROVIDERS: PCP Internal Medicine; Visit Provider Nurse Practitioner Family | DX: R12 Heartburn (principal); K76.0 Fatty (change of) liver, not elsewhere classified | CPT/HCPCS: 99212 ==